=== PATIENT | female | born 1955 | race Caucasian/White ===

== ENCOUNTER 2023-05-24 10:20 | Emergency (ER) | payer MEDICARE, SELFPAY ==
[2023-05-24 10:36] VITALS: BP 143/74; PULSE 67; RESP 18; TEMP 37; O2SAT 100; BMI 22.6
--- NOTE | 2023-05-24 11:28 | ED.ABDPAIN ---
HPI - Abdominal Pain General Chief Complaint: Abdominal Pain Stated Complaint: abd pain Time Seen by Provider: 05/24/23 16:17 Source: patient and family (patient's sister) Mode of arrival: ambulatory Limitations: no limitations History of Present Illness HPI narrative: Patient is a 68 year old assigned female at with a history of IBS presenting to the emergency department today with intermittent constipation and diarrhea. Patient states that she was having constipation and then had diarrhea, so she took immodium. Patient states that she has had recent exposure to someone with norovirus. Patient states that she is having abdominal pain but it is more like discomfort. Patient states that she is still passing gas. Patient denies any dizziness, lightheadedness, nausea, vomiting, fever, chills, blurry vision, double vision, loss of vision, chest pain, difficulty breathing, shortness of breath, back pain, night sweats, pain with urination, increased urinary frequency, increased urinary urgency, blood in her urine or stool, syncope or a near syncopal episode, recent trauma or falls, bladder incontinence, bladder retention, or any other complaints at this time. Associated symptoms: diarrhea and constipation Related Data Allergies Allergy/AdvReac Type Severity Reaction Status Date / Time ciprofloxacin Allergy Chest Pain Verified 05/24/23 10:36 fluconazole Allergy Rash Verified 05/24/23 10:36 Iodinated Contrast Media Allergy Shortness Verified 05/24/23 10:36 [Contrast Dye] of Breath metronidazole Allergy Rash Verified 05/24/23 10:36 omeprazole Allergy Rash Verified 05/24/23 10:36 Penicillins Allergy Rash Verified 05/24/23 10:36 codeine AdvReac Nausea Verified 05/24/23 10:36 avalox Allergy Unknown Uncoded 05/24/23 10:36 Review of Systems Constitutional: Reports no additional constitutional complaints, Denies chills, Denies fever(s) and Denies night sweats Eyes: Reports no additional eye complaints, Denies blurry vision, Denies change in vision, Denies diplopia, Denies eye discharge, Denies loss of vision and Denies eye pain Denies dizziness Cardiovascular: Reports no additional cardiovascular complaints, Denies chest pain, Denies lightheadedness, Denies Loss of Consciousness and Denies dyspnea Respiratory: Reports no additional respiratory complaints and Denies dyspnea Gastrointestinal: Reports no additional gastrointestinal complaints, Reports abdominal pain, Denies melena, Denies hematochezia, Denies change in bowel habits, Denies change in stool character, Reports constipation and Reports diarrhea Genitourinary: Denies hematuria, Denies urinary frequency, Denies dysuria, Denies urinary incontinence, Denies urinary hesitancy and Denies urinary urgency Musculoskeletal: Reports no additional musculoskeletal complaints, Denies numbness and Denies tingling Denies dizziness, Denies loss of vision, Denies numbness and Denies tingling Psychiatric: Reports no additional psychiatric complaints Endocrine: Reports no additional endocrine complaints Hematologic/Lymphatic: Reports no additional hematologic/lymphatic complaints Allergic/Immunologic: Reports no additional allergic/immunologic complaints PMFSH Past Medical History Attestation statement: The following information was validated with the patient. Source: old records reviewed and nursing notes reviewed Onset Date is defined in the Problem List Problems that require an onset date and time if occurred within 24 hrs of arrival to the ED Aortic Dissection and Rupture; Neurologic impairment; Cardiopulmonary Arrest; Endotracheal Intubation; Insertion or Replacement of Mechanical Circulatory Assist Device Social History Social History Advance Directives: No Advance Directives Information Provided: No Physical Exam ED Vital Signs: Vital Signs - 24 hr 05/24/23 10:36 Temperature 98.6 F Pulse Rate 67 Respiratory Rate 18 Blood Pressure 143/74 H Pulse Oximetry 100 Oxygen Delivery Method Room Air BMI result Body Mass Index 22.6 Const General: cooperative, no acute distress, alert and awake Nutritional Appearance: well nourished Orientation/consciousness: patient oriented x3 Limitations: no limitations HENMT Head: Yes normal to inspection and Yes atraumatic Ears: hearing grossly normal bilaterally and external ears normal General nose exam: Normal external nose present, no nasal discharge noted and no epistaxis Face and sinus: Yes normal facial exam, No abrasion and No laceration Mouth: Normal oral and palatal mucosa present, no drooling and no muffled voice Eyes General: appearance normal, both eyes and all related structures Periorbital: periorbital findings normal Eyelids: Yes eyelids normal Conjunctivae: conjunctivae normal Pupils: Equal, round and reactive pupils present EOM: EOMs intact bilaterally Neck Neck: Yes normal visual inspection, Yes full ROM and Yes no lymphadenopathy Chest Chest palpation & inspection: normal inspection of the chest Resp Effort & Inspection: normal respiratory effort and able to speak in complete sentences GI Inspection: Yes normal to inspection Palpation (GI): Soft to palpation, not firm, nontender and no guarding Neuro General: patient oriented x3 and moves all extremities Cranial nerves: Yes Equal, round and reactive pupils present Cognition (Neuro): normal cognition Motor exam (neuro): 5/5 motor strength present throughout Sensory Exam: Normal double simultaneous stimulation for sensation Coordination: [id number] test normal Extrem General: Yes normal to inspection, Yes full ROM and Yes capillary refill normal Psych Appearance: grossly normal Mental Status: mental status grossly normal Affect: normal affect Attitude: cooperative Thought process: Normal thought process present Thought content: Normal thought content present Insight: Good insight present (Psych) Course Course Course Narrative: This is a rapid medical exam. Deferred additional HPI, ROS, PE to primary provider. 68 yo female with history of IBS here with complaints of 2 days of constipation, lower abdominal pain, fever 100F last evening and body aches. Will need labs, UA, viral testing. VSS Medical Decision Making Medical Decision Making [facility] Narrative: Patient is a 68 year old assigned female at with a history of IBS presenting to the emergency department today with abdominal discomfort, diarrhea, and constipation. Patient's physical exam was unremarkable. Patient's blood work was unremarkable. Patient's urine showed no acute process. Patient's KUB x-ray showed mild constipation. I explained my physical exam findings as well as all test results to the patient. I answered all questions asked by the patient. I stressed the importance of the patient taking her medication as prescribed. I stressed the importance of the patient following up with her primary care provider and her GI specialist. I stressed the importance of the patient returning to the emergency department immediately if her symptoms were to worsen or if she were to develop any dizziness, shortness of breath, difficulty breathing, chest pain, blurry vision, loss of vision, nausea, vomiting, abdominal pain, fever, chills, back pain, or any other complaints. Patient verbalized agreement and understanding with this treatment plan and discharge. Differential Diagnosis Differential Diagnoses: The differential diagnosis associated with the presentation includes IBS Constipation Viral illness Gastroenteritis Enteritis Admission/Observation Consideration of admission/observation: Escalation of care including admission/observation considered Patient would have been admitted to the hospital had her work up had any findings where hospital admission was appropriate and her clinical presentation warranted hospital admission. Lab Data [facility] Lab Attestation statement: I reviewed the patient's lab results. My interpretation of these studies and their corresponding values is that they are grossly normal. 05/24/23 10:54 05/24/23 10:54 Labs: Lab Results 05/24/23 05/24/23 Range/Units 10:54 13:37 WBC 8.3 (4.8-10.8) X10*3/uL RBC 4.01 L (4.20-5.50) X10*6/uL Hgb 13.0 (12.0-16.0) g/dl Hct 38.5 (37.0-47.0) % MCV 96.0 (80.0-98.0) fL MCH 32.4 (27.0-33.0) pg MCHC 33.8 (31.0-35.0) g/dl RDW 13.9 (11.0-16.0) % Plt Count 292 (160-400) X10*3/uL MPV 8.9 L (9.4-12.3) fL Immature Gran % (Auto) 0.5 H (0.0-0.4) % Neut % (Auto) 62.2 (45-73) % Lymph % (Auto) 23.8 (20-40) % [place] % (Auto) 12.2 H (2-11) % Eos % (Auto) 0.8 (0-4) % Baso % (Auto) 0.5 (0-2) % Lymph # (Auto) 2.0 (1.2-4.9) X10*3/uL [place] # (Auto) 1.0 (0.1-1.2) X10*3/uL Eos # (Auto) 0.1 (0.0-0.4) X10*3/uL Baso # (Auto) 0.0 (0.0-0.2) X10*3/uL Abs Immat Gran (auto) 0.04 H (0.00-0.03) X10*3/uL Absolute Neuts (auto) 5.1 (2.0-8.3) x10*3/uL Absolute Nucleated RBC 0.000 (0.0-0.012) X10*3/uL Nucleated RBC % (auto) 0.0 (0.0-0.2) /100WBC Sodium 140 (135-145) mmol/L Potassium 4.2 (3.3-5.1) mmol/L Chloride 102 (96-108) mmol/L Carbon Dioxide 30 H (22-29) mmol/L Anion Gap 12 (12-20) BUN 8 L (9-16) mg/dL Creatinine 0.68 (0.5-1.4) mg/dL Estim Creat Clear Calc 61.7 Estimated GFR > 60 Random Glucose 90 (60-115) mg/dL Calcium 9.6 (8.4-10.2) mg/dL Total Bilirubin 1.0 (0.0-1.0) mg/dL AST 26 (5-31) U/L ALT 10 (0-31) U/L Alkaline Phosphatase 96 (39-117) U/L Total Protein 7.4 (6.5-8.0) g/dL Albumin 4.3 (3.5-5.0) g/dL Urine Color Yellow Urine Appearance Clear Urine pH 5.0 (5.0-9.0) Ur Specific Nicholls 1.015 (1.005-1.025) Urine Protein Negative (Neg-Trace) mg/dL Urine Glucose (UA) Negative (Negative) mg/dL Urine Ketones 15 (Negative) mg/dL Urine Blood Trace H (Negative) Urine Nitrite Negative (Negative) Ur Leukocyte Esterase Negative (Negative) Urine RBC 3-5 H (0-2) /HPF Urine WBC 0-5 (0-5) /HPF Ur Squamous Epith Cells 0-2 (0-2) /HPF Urine Bacteria None Seen (None Seen) Hyaline Casts 0-2 (0-2) /LPF Influenza Type A (PCR) NEGATIVE (Negative) Influenza Type B (PCR) NEGATIVE (Negative) RSV RNA Qual (PCR) NEGATIVE (Negative) SARS-CoV-2 RNA (RT-PCR) NEGATIVE (Negative) Independent Interpretation I performed an independent interpretation of an: Plain X-Ray Interpretation: My interpretation is in agreement with the radiologist's impression of this imaging study. EXAMINATION: XR ABDOMEN KUB CLINICAL INDICATION: Constipation COMPARISON: None available. TECHNIQUE: AP view of the abdomen. FINDINGS: There is scattered stool and gas seen throughout the colon without significant distention. There is no organomegaly. No radiopaque calculi seen. There are several phleboliths in the lower pelvis No gross bony abnormality. XR/XR KUB IMPRESSION: Mild constipation. Dictated By: Alirio Carr MD Signed By: Electronically signed by Alirio Carr MD 05/24/23 1119 Radiology Impression Discussion of test interpretation with radiology: I have reviewed the radiologist's reading. Independent Historian Clinical information obtained from an independent historian. History obtained from or confirmed by: Other (patient's sister provided additional history and confirmed the history provided by the patient.) Discharge Plan Discharge Clinical Impression: Abdominal pain, Acute constipation Patient Disposition: Home, Self-Care Instructions: Constipation (DC), Abdominal Pain (ED) Additional Instructions: Follow up with your primary care provider. Return to the emergency department immediately if your symptoms worsen or if you develop any dizziness, shortness of breath, difficulty breathing, chest pain, blurry vision, loss of vision, nausea, vomiting, abdominal pain, fever, chills, back pain, or any other complaints. Referrals: Belen Edwards FNP [Primary Care Provider] - Print Language: Azerbaijani
[2023-05-24 17:15] VITALS: BP 130/70; PULSE 70; RESP 15; TEMP 37.3; O2SAT 96
== END 2023-05-24 17:18 | disposition home or self-care (01) ==
PROVIDERS: Emergency Provider Student in an Organized Health Care Education/Training Program; PCP Nurse Practitioner Family
DX: R10.9 Unspecified abdominal pain (principal); K59.00 Constipation, unspecified; Z20.822 Contact with and (suspected) exposure to COVID-19; Z20.828 Contact with and (suspected) exposure to other viral communicable diseases
CPT/HCPCS: 0241U; 36415; 74018; 80053; 81001; 85025; 99283

== ENCOUNTER 2024-04-14 07:54 | Outpatient (REF) | payer MEDICARE, SELFPAY ==
--- NOTE | ~2024-04-14 | MM_ITS ---
EXAMINATION: BONE DENSITOMETRY CLINICAL INDICATION: Osteoporosis. COMPARISON: This is the patient's baseline examination. TECHNIQUE: Using a [employer] DXA System (software version: 13.1) manufactured by [employer], dual-energy x-ray absorptiometry was performed of the lumbar spine and left hip. The images are of good technical quality. Summary results are attached. FINDINGS: LEFT FEMUR, NECK: BMD 0.669 g/cm2, Z-score -0.8, T-score -2.7, osteoporosis. LEFT FEMUR, TOTAL: BMD 0.819 g/cm2, Z-score 0.2, T-score -1.5, osteopenia. AP SPINE L1-L4: BMD 0.834 g/cm2, Z-score -0.9, T-score -2.9, osteoporosis. IDENTIFIED RISK FACTORS: Osteoporosis, height loss, low calcium intake, parental hip fracture, menopause, bilateral oophorectomy. HISTORY OF FRACTURE: None listed. MEDICATIONS: Bisphosphonates, vitamin D. MM/XR DEXA axial skeleton IMPRESSION: 1. DIAGNOSIS: Osteoporosis based on the lowest T-score value of -2.9 in the lumbar spine applying World Health Organization criteria. 2. 10-YEAR FRACTURE RISK PREDICTION, FRAX: According to the guidelines, FRAX calculation should only be performed on patients in the osteopenia bone density category. Therefore, FRAX was not performed on this patient. 3. Treatment Recommendations: NOF guidelines recommend consideration for treatment in postmenopausal women and men age 50 and older presenting with the following: -A hip or vertebral (clinical or morphometric) fracture. -T-score less than or equal to -2.5 at the femoral neck or spine after appropriate evaluation to exclude secondary causes. -Low bone mass at the hip or spine and a 10-year fracture probability by FRAX of greater than or equal to 3% for hip fracture or greater than or equal to 20% for major osteoporotic fracture based on the [place] adapted WHO algorithm. 4. Other Recommendations: All treatment decisions require clinical judgment and consideration of individual patient factors, including patient preferences, comorbidities, previous drug use, risk factors not captured in the FRAX model (e.g. frailty, falls, vitamin D deficiency, increased bone turnover, interval significant decline in bone density) and possible under or overestimation of fracture risk by FRAX. Additional medical evaluation for secondary cause of low bone mineral density may be appropriate. FUTURE SCAN RECOMMENDATION: People with diagnosed cases of osteoporosis or at high risk for fracture should have regular bone mineral density tests. For patients eligible for Medicare, routine testing is allowed once every 2 years. The testing frequency can be increased to one year for patients who have rapidly progressing disease, those who are receiving or discontinuing medical therapy to restore bone mass, or have additional risk factors. Electronically signed by: Julian Hall MD 04/14/2024 11:52 AM CHANG PITT
== END 2024-04-14 07:55 | disposition home or self-care (01) ==
LOC: HO.MAMMO 07:54
PROVIDERS: PCP Nurse Practitioner Family; Visit Provider Nurse Practitioner Family
DX: M81.0 Age-related osteoporosis without current pathological fracture (principal)
CPT/HCPCS: 77080

== ENCOUNTER → 2024-05-07 13:30 | Outpatient (BNV) | payer MEDICARE, SELFPAY | PROVIDERS: PCP Nurse Practitioner Family; Visit Provider Internal Medicine | DX: Z12.31 Encounter for screening mammogram for malignant neoplasm of breast (principal) | CPT/HCPCS: 77063; 77067 ==

== ENCOUNTER 2024-05-07 13:33 | Outpatient (REF) | payer MEDICARE, SELFPAY ==
--- OUTSIDE RECORDS SUMMARY | 2024-05-07 13:36 | XMS_ITS | Continuity of Care Document ---
Author Organization [place] - [facility], [facility] Address [address] [place] [address] Care Team Providers Care Project Safety Manager Name Role Phone NICHOLAS QUINN Primary Care Provider Assessment Encounter Date Assessment Date Assessment LastModified by Organization Details LastModified Time 03/23/2024 03/23/2024 68 year old female with nasal sores. We discussed that this is most likely nasal vestibulitis. Suggest warm compresses followed by mupirocin ointment 3 times daily. Continue with frequent use of nasal saline and gel. She will follow up on an as needed basis. Patient was seen and evaluated by Dr. Booker. Natalee Mondragon PA-C functioned as a scribe for this visit. [email or web address] Not available 03/23/2024 12:10:30 Plan of Treatment Reminders Order Date Submit Date Provider Last Modified By Organization Details Last Modified Time Details Appointments None recorded. Lab None recorded. Referral None recorded. Procedures None recorded. Surgeries None recorded. Imaging None recorded. Medication Orders mupirocin 2 % topical ointment 2023 024 [facility] #[id number], [address], [place], [address], 12:03:12 Patient TargetsNo targets recorded. Patient InstructionsNo instructions recorded. Reason for Referral None Reported. Problems Name Problem SNOMED Code Status Onset Date Resolution Date Notes Provider Name and Address Organization Details Recorded Time Sensorine ural hearing loss 02471997 Active 2021 Sensorine ural hearing loss, unilatera l, right ear, with unrestric sae hearing on the contralat eral side; Note: Date Diagnosed : 04/23/2022 3:04 PM (H90.41) Sensori neural hearing loss, unilatera l, right ear, with unrestric sae hearing on the contralat eral side; Note: Date Diagnosed : 2 12:52 PM (H90.41) ; Start Date : 2 Not Available [facility] 4 02:59:57 Tinnitus of right ear 11094269471 08 Active 2021 Tinnitus, right ear; Note: Date Diagnosed : 2 12:52 PM (H93.11) Not Available [facility] 4 02:59:56 Dizziness and giddiness 411243144 Active 2021 Dizziness and giddiness ; Note: Date Diagnosed : 2 10:43 AM (R42) Not Available [facility] 4 02:59:56 Nasal vestibuli tis 19323645 Active 2023 NATALEE MONDRAGON PA-C [address] [place] [address],[place] [address], [place], [address] , [facility] 4 12:02:46 Problem Notes None recorded. Procedures Surgical History Date Name Laterality Status Provider Name and Address Organization Details Recorded Time Nasal Endoscopy completed NATALEE MONDRAGON PA-C [address] [place] [address],[place] [address], [place], [address], [facility] 03/23/2024 12:08:31 Imaging Results None recorded. Procedure Notes None recorded. Medical Equipment None Reported. Allergies Allergen ID Allergen Name Allergen Category Reaction Reaction Severity Criticality Documentation Date Start Date Code Code System Note Provider Name and Address Organization Details Recorded Time 38062 metronida zole medicatio n other Not available Not available 09/30/2023 6922 RxNorm React ion: Unkno wn; Not Available [facility] 4 01:06:01 98751 fluconazo le medicatio n other Not available Not available 09/30/2023 4450 RxNorm React ion: Unkno wn; Not Available [facility] 4 01:06:02 11472 omeprazol e medicatio n other Not available Not available 09/30/2023 7646 RxNorm React ion: Unkno wn; Not Available [facility] 4 01:06:03 00022 hydrochlo rothiazid e / irbesarta n medicatio n other Not available Not available 09/30/2023 20252 7 RxNorm React ion: Unkno wn; Not Available [facility] 4 01:06:04 31799 codeine medicatio n other Not available Not available 09/30/2023 2670 RxNorm React ion: Unkno wn; Not Available [facility] 4 01:06:06 75407 Cipro medicatio n other Not available Not available 09/30/2023 37151 3 RxNorm React ion: Unkno wn; Not Available [facility] 4 01:06:08 85397 Medicinal product containin g penicilli n and acting as antibacte rial agent (product) medicatio n other Not available Not available 09/30/2023 21133 05 SNOMED React ion: Unkno wn; Not Available [facility] 4 01:06:10 Medications Name Sig Start Date Stop Date Status Note LastModified by Organization Details LastModified Time prednisone 10 mg tablet by mouth 2021 active Medicatio n ID: [id number] Pr escribed By Name: Isela Ulrich MD Brand Name: prednison e Send Method: E-Prescri bed Subs Allowed: subs OK Specia l Instructi on: Take 6 tabs PO QD X 9 days, then 5 tabs PO QD day 10, 4 tabs day 11, 3 tabs day 12, 2 tabs day 13 and 1 tab day 14 Medica tionGener icName: prednison e Not Available Not Available Not Available citalopram 10 mg tablet TAKE 1 TABLET BY MOUTH EVERY DAY active Not Available Not Available No t Available alendronat e 70 mg tablet TAKE 1 TABLET BY MOUTH EVERY FRIDAY FOR OSTEOPORO SIS TREATMENT active Not Available Not Available No t Available meloxicam 7.5 mg tablet TAKE 1 TABLET BY MOUTH DAILY active Not Available Not Available No t Available famotidine 20 mg tablet TAKE 1 TABLET BY MOUTH 2 TIMES A DAY NEEDED FOR HEARTBURN . active Not Available Not Available No t Available lorazepam 0.5 mg tablet active Medicatio n ID: [id number] Br and Name: lorazepam Send Method: E-Prescri bed Subs Allowed: subs OK Specia l Instructi on: TAKE ONE TABLET BY MOUTH TWICE A DAY NEEDED Me dicationG enericNam e: lorazepam Not Available Not Available Not Available acyclovir 200 mg capsule TAKE 2 CAPSULES BY MOUTH TWICE A DAY active Not Available Not Available No t Available mupirocin 2 % topical ointment APPLY A SMALL AMOUNT TO AFFECTED AREA 3 TIMES A DAY active Not Available Not Available No t Available ondansetro n 4 mg disintegra ting tablet TAKE 1-2 TABLETS BY MOUTH EVERY 8 HOURS NEEDED FOR NAUSEA/VO MITING active Not Available Not Available No t Available cefdinir 300 mg capsule active Medicatio n ID: [id number] Br and Name: cefdinir Send Method: E-Prescri bed Subs Allowed: subs OK Medica tionGener icName: cefdinir Not Available Not Available Not Available Laxative (bisacodyl ) 5 mg tablet,del ayed release 4 TABLET NEEDED ORALLY #4 TABLETS, PT HAS INSTRUCTI ONS 1 DAYS active Not Available Not Available No t Available metoprolol tartrate 25 mg tablet TAKE 1/2 TABLET BY MOUTH TWICE A DAY WITH FOOD active Not Available Not Available No t Available GaviLyte-G 236 gram-22.74 gram-6.74 gram-5.86 gram oral solution 4000 ML ORALLY PT HAS INSTRUCTI ONS 2 DAYS active Not Available Not Available No t Available Eliquis 5 mg tablet TAKE 1 TABLET BY MOUTH TWICE A DAY active Not Available Not Available No t Available Paxlovid 300 mg (150 mg x 2)-100 mg tablets in a dose pack TAKE 3 TABLETS BY MOUTH TOGETHER TWICE A DAY FOR 5 DAYS active Not Available Not Available No t Available Vitals Date Recorded Body height Body mass index (BMI) Body weight Provider Name and Address Organization Details Last Updated DateTime 03/23/2024 154.94 cm 23.2 kg/m2 42476.86 g Panfilo Ledbetter [place] - [facility] 03/23/2024 11:38:27 Social History None recorded. Functional Status None recorded. Mental Status None recorded. Family History Nothing Reported. Medical History No medical history recorded. Gynecological HistoryNo gynecological history recorded. Obstetrics History GPAL:G 0 P 0 0 0 0 Past Encounters Encounter ID Performer Location Encounter Start Date Encounter Closed Date Diagnosis/Indication Diagnosis SNOMED-CT Code Diagnosis ICD10 Code [id number] IKER BIRD MD [facility] on [address] [place] [address] 03/23/2024 11:10:16 03/23/2024 12:05:52 Nasal vestibulitis 14562868 J34.89 Health Concerns Section Related Observation LastModified by Organization Detai ls LastModified Time None Recorded Concern Status LastModified by Organization Details LastModified Time None Recorded Payers Encounter Date Sequence Insurance Name Policy Number Policy Sandoval Covered Member ID Sandoval Member ID Guarantor Name 03/23/2024 2 [facility] [employer] [id number] [facility] [id number] [facility] 03/23/2024 1 [place] [employer] [facility] [id number] [facility] Notes Date Note Type Note Provider Name and Address Organization Details Recorded Time 03/23/2024 text/html 68 year old elvin kaiser presents to the office for evaluation of nasal sores. She reports that she has had sores in her nose for about 5 months. She has been using Mildred nasal gel and saline solution which do seem to be helping. She has used Bacitracin topically over the counter. She uses a humidifier at home. She has antiphospholipid syndrome and has evaluation with rheumatology in May to be evaluated for Sjogren's. She reports that her tongue feels very dry at night and she has had dry eyes for years. IKER BOOKER MD [address] [place] [address], [place], [address], [facility] - [facility] 03/23/2024 12:30:10 OBGyn Episode No OBEpisode recorded.
== END 2024-05-07 13:34 | disposition home or self-care (01) ==
LOC: HO.MAMMO 13:33
PROVIDERS: PCP Nurse Practitioner Family; Visit Provider Nurse Practitioner Family
DX: Z12.31 Encounter for screening mammogram for malignant neoplasm of breast (principal)
CPT/HCPCS: 77063; 77067

== ENCOUNTER → 2024-09-14 08:30 | Outpatient (BNV) | payer MEDICARE, SELFPAY | PROVIDERS: Visit Provider Internal Medicine | DX: N63.21 Unspecified lump in the left breast, upper outer quadrant (principal) | CPT/HCPCS: 76642; 77065; G0279 ==

== ENCOUNTER 2024-09-14 08:33 | Outpatient (REF) | payer MEDICARE, SELFPAY ==
--- NOTE | ~2024-09-14 | US_ITS ---
EXAMINATION: MM DIAGNOSTIC DIGITAL BREAST TOMOSYNTHESIS, LEFT Limited left breast ultrasound. CLINICAL INFORMATION: Left breast palpable lump upper outer quadrant. No discharge. Strong family history of breast cancer including 2 sisters. COMPARISON: Mammography: Priors on PACS. TECHNIQUE: Digital breast tomosynthesis is performed in both the craniocaudal and mediolateral oblique views along with computer-aided detection (CAD). Synthesized 2D images are generated from the tomosynthesis. FINDINGS: There are scattered areas of fibroglandular density (ACR BI-RADS breast composition Category b). Postsurgical changes from removal of implanted cardiac device. BB marker in the upper outer breast at site of palpable lump without underlying abnormality. There are no significant masses, abnormal calcifications, or other abnormalities. Targeted color Doppler ultrasound scanning in the area the patient's palpable lump from 1-5 o'clock in the left breast demonstrates normal fibronodular breast tissue. There is no sonographic abnormality to correlate with the patient's palpable lump. US/US breast LT limited mamm only IMPRESSION: No mammographic or sonographic abnormality to correlate with the patient's palpable lump. Recommend clinical evaluation follow-up. Recommend yearly annual screening. ASSESSMENT: BI-RADS BI-RADS 1 - Negative RECOMMENDATION: 1. Patient should be managed based on the clinical impression. 2. Otherwise, routine annual screening mammography. Results were provided to the patient at time of visit by the technologist. This patient's information was entered into a reminder system with a target due date for their next mammogram. Electronically signed by: Smita Pollock DO 09/14/2024 09:53 AM EDT
--- OUTSIDE RECORDS SUMMARY | 2024-09-14 08:59 | XMS_ITS | Data Portability ---
Author Organization [place] [facility], Allergy Address [address] [facility] [address] [place] [address] Care Team Providers Care Open Claims Representative Name Role Phone NICHOLAS QUINN Primary Care [...] mupirocin 2 % topical ointment 2023 024 [facility][id number], [address] [facility], [place], [address], 12:03:12 Patient TargetsNo targets recorded. Patient InstructionsNo instructions recorded. Reason for Referral None Reported. Problems Name Problem SNOMED Code Status Onset Date Resolution Date Notes Provider Name and Address Organization Details Recorded Time Sensorine ural hearing loss 87852301 Active 2021 Sensorine ural hearing loss, unilatera l, right ear, with unrestric sae hearing on the contralat eral side; Note: Date Diagnosed : 04/23/2022 3:04 PM (H90.41) Sensori neural hearing loss, unilatera l, right ear, with unrestric sae hearing on the contralat eral side; Note: Date Diagnosed : 2 12:52 PM (H90.41) ; Start Date : 2 Not Available [facility] 4 02:59:57 Tinnitus of right ear 48925202009 08 Active 2021 Tinnitus, right ear; Note: Date Diagnosed : 2 12:52 PM (H93.11) Not Available [facility] 4 02:59:56 Dizziness and giddiness 979590511 Active 2021 Dizziness and giddiness ; Note: Date Diagnosed : 2 10:43 AM (R42) Not Available [facility] 4 02:59:56 Nasal vestibuli tis 45587954 Active 2023 NATALEE MONDRAGON PA-C [address] [place] [address],[place] [address], [place], [phone] , [facility] 4 12:02:46 Problem Notes None recorded. Procedures Surgical History Date Name Laterality Status Provider Name and Address Organization Details Recorded Time Nasal Endoscopy completed NATALEE MONDRAGON PA-C [address] [place] [address],[place] [address], [place], [phone], [facility] 03/23/2024 12:08:31 Imaging Results None recorded. Procedure Notes None recorded. Medical Equipment None Reported. Allergies Allergen ID Allergen Name Allergen Category Reaction Reaction Severity Criticality Documentation Date Start Date Code Code System Note Provider Name and Address Organization Details Recorded Time 12763 metronida zole medicatio n other Not available Not available 09/30/2023 6922 RxNorm React ion: Unkno wn; Not Available [facility] 4 01:06:01 86217 fluconazo le medicatio n other Not available Not available 09/30/2023 4450 RxNorm React ion: Unkno wn; Not Available [facility] 4 01:06:02 72184 omeprazol e medicatio n other Not available Not available 09/30/2023 7646 RxNorm React ion: Unkno wn; Not Available [facility] 4 01:06:03 78207 hydrochlo rothiazid e / irbesarta n medicatio n other Not available Not available 09/30/2023 66608 7 RxNorm React ion: Unkno wn; Not Available [facility] 4 01:06:04 21388 codeine medicatio n other Not available Not available 09/30/2023 2670 RxNorm React ion: Unkno wn; Not Available [facility] 4 01:06:06 95120 Cipro medicatio n other Not available Not available 09/30/2023 62880 3 RxNorm React ion: Unkno wn; Not Available [facility] 4 01:06:08 66974 Product containin g penicilli n (product) medicatio n other Not available Not available 09/30/2023 81429 8001 SNOMED React ion: Unkno wn; Not Available [facility] 4 01:06:10 Medications Name Sig Start Date Stop Date Status Note LastModified by Organization Details LastModified Time prednisone 10 mg tablet by mouth 2021 active Medicatio n ID: [id number] Pr escribed By Name: Isela Ulrich MD [...] 0.5 mg tablet active Medicatio n ID: [id number] Br and Name: lorazepam Send Method: E-Prescri [...] 300 mg capsule active Medicatio n ID: [id number] Br and Name: cefdinir Send Method: E-Prescri [...] Updated DateTime 03/23/2024 154.94 cm 23.2 kg/m2 08389.86 g Panfilo Ledbetter [place] [facility] 03/23/2024 11:38:27 Social History None recorded. Functional Status None recorded. Mental Status None recorded. Family History Nothing Reported. Medical History No medical history recorded. Gynecological HistoryNo gynecological history recorded. Obstetrics History GPAL:G 0 P 0 0 0 0 Past Encounters Encounter ID Performer Location Encounter Start Date Encounter Closed Date Diagnosis/Indication Diagnosis SNOMED-CT Code Diagnosis ICD10 Code Diagnosis Note [id number] IKER BIRD MD [facility] on [address] [place] [address] 03/23/2024 11:10:16 03/23/2024 12:05:52 Nasal vestibulitis 41112800 J34.89 Suggest warm compresses followed by mupirocin ointment 3 times daily Health Concerns Section Related Observation LastModified by Organization Detai ls LastModified Time None Recorded Concern Status LastModified by Organization Details LastModified Time None Recorded Advance Directives Directive None Recorded Payers Encounter Date Sequence Insurance Name Policy Number Policy Sandoval Covered Member ID Sandoval Member ID Guarantor Name 03/23/2024 2 [facility]: [employer] [facility] [id number] [facility] [id number] [facility] 03/23/2024 1 MEDICARE B-[place]: [employer] [facility] [id number] [facility] Notes Date Note Type Note Provider Name and Address Organization Details Recorded Time 03/23/2024 text/html 68 year old elvin kaiser presents to the office for evaluation of nasal sores. She reports that she has had sores in her nose for about 5 months. She has been using [place] nasal gel and saline solution which do seem to be helping. She has used Bacitracin topically over the counter. She uses a humidifier at home. She has antiphospholipid syndrome and has evaluation with rheumatology in May to be evaluated for Sjogren's. She reports that her tongue feels very dry at night and she has had dry eyes for years. IKER BOOKER MD [address] [place] [address], [phone], [facility] - [facility] 03/23/2024 12:30:10 OBGyn Episode No OBEpisode recorded.
== END 2024-09-14 08:34 | disposition home or self-care (01) ==
LOC: HO.MAMMO 08:33
PROVIDERS: Visit Provider Family Medicine
DX: N63.23 Unspecified lump in the left breast, lower outer quadrant (principal)
CPT/HCPCS: 76642; 77061; 77065

== ENCOUNTER 2025-01-27 10:01 | Outpatient (REF) | payer MEDICARE, SELFPAY ==
--- NOTE | 2025-01-27 10:04 | PFT_ITS ---
Indication: Abnormal imaging Spirometry FEV1 to FVC 68% pre bronchodilators and 77% post bronchodilators; FEV1 2.07 L; FVC 2.68 L. There is a significant response to bronchodilators noted. Lung Volumes Total lung capacity 90% predicted; residual volume 82% predicted Diffusion Capacity DLCO 64% predicted Comparisons None Interpretation There is a reversible obstructive ventilatory defects suggestive of asthma. The patient did have a significant response to bronchodilators noted. Lung volumes are normal and diffusing capacity is mildly decreased. Should correct for hemoglobin. Clinical correlation warranted. MTDD
[2025-01-27 10:47] VITALS: PULSE 56; O2SAT 96
== END 2025-01-27 10:02 | disposition home or self-care (01) ==
LOC: HO.RESP 10:01
DX: R93.89 Abnormal findings on diagnostic imaging of other specified body structures (principal); Z87.891 Personal history of nicotine dependence
CPT/HCPCS: 94060; 94640; 94727; 94729

== ENCOUNTER → 2025-01-27 10:04 | Outpatient (BNV) | payer MEDICARE, SELFPAY | PROVIDERS: Visit Provider Hospitalist | DX: R91.8 Other nonspecific abnormal finding of lung field (principal) | CPT/HCPCS: 94060; 94727; 94729 ==

== ENCOUNTER 2025-04-01 11:10 | Outpatient (REF) | payer MEDICARE, SELFPAY ==
--- NOTE | ~2025-04-01 | XR_ITS ---
EXAMINATION: XR KNEE, RIGHT CLINICAL INFORMATION: PAIN IN RIGHT KNEE, ? ATROPHY VS BONE CHANGES, oa COMPARISON: None available. TECHNIQUE: Four views of the right knee. FINDINGS: There is mild narrowing of the medial joint space. Intercondylar tubercles are peaked. Minute marginal osteophyte is present along the medial femoral condyle. There is no joint effusion. XR/XR knee RT 4V IMPRESSION: Mild osteoarthritis. Electronically signed by: Luis Knight MD 04/01/2025 11:41 AM CHANG
--- OUTSIDE RECORDS SUMMARY | 2025-04-01 16:59 | XMS_ITS | Encounter Summary ---
Author Organization [facility] Address [facility] [address] [place] [address] Phone Care Team Providers Care Building Service Worker Name Role Phone Belen Edwards BUSINESS COMPUTERS TEACHER Primary Care Provider Rukhsana Melgar BUSINESS COMPUTERS TEACHER Primary Care Provider [phone]- [phone] Encounter Details Date Type Department Care Team (Late st Contact Info) Description 02/09/2024 Transcribe Orders Virtual Department [address] [place] [address] Belen Edwards, LATA [address] [place] [phone] [email or web address] Age-related osteoporosis without current pathological fracture (Primary Dx) Social History Tobacco Use Types Packs/Day Years Used Date Smoking Tobacco: Former Cigarettes Q uit: 1981 Smokeless Tobacco: Never Comments:Smoked for 15 to 20 years and childhood had second hand smoke Alcohol Use Standard Drinks/Week Comments Yes 7 (1 standard drink = 0.6 oz pur e alcohol) Education Answer Date Recorded Are you interested in more education? Not on travis e 09/13/2022 Are you concerned about learning? Not on file 09/13/2022 No 09/13/2022 No 09/13/2022 Digital Access Answer Date Recorded No 10/11/2022 No 10/11/2022 Reliable internet access at home? Not on file 10/11/2022 Device with a working camera? Not on file Intimate Partner Violence Answer Date R ecorded Are you denied basic needs s uch as food, clothing, or medical care? No 01/21/2024 In the past 12 months have y ou been in a relationship with a person who hurts, threatens, or tries to control you? No 01/21/2024 Are you denied basic needs s uch as food, clothing, or medical care? No 01/21/2024 In the past 12 months have y ou been in a relationship with a person who hurts, threatens, or tries to control you? No 01/21/2024 Comments No Sex and Gender Information Value Date Recorded Sex Assigned at Female 04/08/2020 9:22 AM EST Legal Sex Female 9:56 PM EDT Gender Identity Female 04/08/2020 9:22 AM EST Sexual Orientation Straight 04/08/2020 9: 22 AM EST documented as of this encounter Plan of Treatment Not on file documented as of this encounter Visit Diagnoses Diagnosis Age-related osteoporosis without current pathological fracture- Primary documented in this encounter Additional Health Concerns Assessment Noted Time PHQ-2 Depression Total Score: 2 08/25/19 21 8:59 AM EDT documented as of this encounter Care Teams Building Service Worker Relationship Specialty Start Date End Date Belen Edwards NP [address] [place] [phone] [email or web address] PCP - General Nurse Practitioner 02/13/23 10/19/24 Rukhsana Melgar NP [address] [place] [address] PCP - General Nurse Practitioner 10/20/24 documented as of this encounter Additional Source Comments The information contained in this document represents components of the legal health record. It is not the complete legal health record.[facility]
--- OUTSIDE RECORDS SUMMARY | 2025-04-01 16:59 | XMS_ITS | Encounter Summary ---
Author Organization [facility] Address Formerly [facility] [employer] [facility] [address] [place] [address] Phone Care Team Providers Care Dovetail Machine Operator Name Role Phone Sedrick Shea MD Primary Care Provider Belen Edwards MANAGER CULINARY Primary Care Provider Rukhsana Melgar MANAGER CULINARY Primary Care Provider [phone]- [phone] Encounter Details Date Type Department Care Team (Late st Contact Info) Description 02/19/2022 Procedure Pass [facility], [address] [address] Social History Tobacco Use Types Packs/Day Years Used Date Smoking Tobacco: Never Smokeless Tobacco: Never Alcohol Use Standard Drinks/Week Comments Yes 0 (1 standard drink = 0.6 oz pur e alcohol) Comments No Sex and Gender Information Value Date Recorded Sex Assigned at Female 04/08/2020 9:22 AM EST Legal Sex Female 9:56 PM EDT Gender Identity Female 04/08/2020 9:22 AM EST Sexual Orientation Straight 04/08/2020 9: 22 AM EST documented as of this encounter Plan of Treatment Not on file documented as of this encounter Visit Diagnoses Not on filedocumented in this encounter Additional Health Concerns Assessment Noted Time PHQ-2 Depression Total Score: 2 08/25/19 21 8:59 AM EDT documented as of this encounter Care Teams Dovetail Machine Operator Relationship Specialty Start Date End Date Sedrick Shea MD [address] [place] [address] [email or web address] PCP - General Internal Medicine 02/06/21 02/12/23 Belen Edwards NP [address] [place] [phone] [email or web address] PCP - General Nurse Practitioner 02/13/23 10/19/24 Rukhsana Melgar NP [address] [place] [address] PCP - General Nurse Practitioner 10/20/24 documented as of this encounter Additional Source Comments The information contained in this document represents components of the legal health record. It is not the complete legal health record.[facility]
--- OUTSIDE RECORDS SUMMARY | 2025-04-01 16:59 | XMS_ITS | Encounter Summary ---
Author Organization [facility] Address [facility] [employer] [facility] [address] [place] [address] Phone Care Team Providers Care Loom Setter Fourdrinier Name Role Phone Belen Edwards X RAY INSPECTOR Primary Care Provider Rukhsana Melgar X RAY INSPECTOR Primary Care Provider +1- [phone] Encounter Details Date Type Department Care Team (Late st Contact Info) Description 08/21/2023 Procedure Pass [facility] Endoscopy Admitting Dept Virtual Department [address] [place] [address] Social History Tobacco Use Types Packs/Day Years Used Date Smoking Tobacco: Former Cigarettes Q uit: 1982 Smokeless Tobacco: Never Comments:Smoked for 15 to [...] with a working camera? Not on file Comments No Sex and Gender Information Value [...] Time PHQ-2 Depression Total Score: 2 08/25/19 8:59 AM EDT documented as of this encounter Care Teams Loom Setter Fourdrinier Relationship Specialty Start Date End Date Belen Edwards NP [address] [place] [phone] [email or web address] PCP - General Nurse Practitioner 02/13/23 10/19/24 Rukhsana Melgar NP [address] [place] [address] PCP - General Nurse Practitioner 10/20/24 documented as of this encounter Additional Source Comments The information contained in this document represents components of the legal health record. It is not the complete legal health record.[facility]
--- OUTSIDE RECORDS SUMMARY | 2025-04-01 16:59 | XMS_ITS | Encounter Summary ---
Author Organization [facility] Address [facility]ly [facility] [address] [place] [address] Phone Care Team Providers Care Aircraft Time Clerk Name Role Phone Belen Edwards AERONAUTICAL DESIGN ENGINEER Primary Care Provider Rukhsana Melgar AERONAUTICAL DESIGN ENGINEER Primary Care Provider +1- [phone] Encounter Details Date Type Department Care Team (Late st Contact Info) Description 03/16/2024 Procedure Pass [facility] [address] [place] [address] Social History Tobacco Use Types Packs/Day Years [...] documented as of this encounter Care Teams Aircraft Time Clerk Relationship Specialty Start Date End Date Belen Edwards NP [address] [place] [phone] [email or web address] PCP - General Nurse Practitioner 02/13/23 10/19/24 Rukhsana Melgar NP [address] [place] [address] PCP - General Nurse Practitioner 10/20/24 documented as of this encounter Additional Source Comments The information contained in this document represents components of the legal health record. It is not the complete legal health record.[facility]
--- OUTSIDE RECORDS SUMMARY | 2025-04-01 16:59 | XMS_ITS | Encounter Summary ---
Author Organization [facility] Address [address] [place] [address] Phone Care Team Providers Care Quarry Supervisor Dimension Stone Name Role Phone Sedrick Shea MD Primary Care Provider Belen Edwards CHEESE WEIGHER Primary Care Provider Rukhsana Melgar CHEESE WEIGHER Primary Care Provider +1- [phone] Encounter Details Date Type Department Care Team ([facility] Contact Info) Description 10/30/2021 Procedure Pass [facility] Cardio EP Device Monitoring [address] [place] [address] Social History Tobacco Use Types Packs/Day Years Used Date Smoking Tobacco: Never Smokeless Tobacco: Never Alcohol Use Standard Drinks/Week Comments Yes 0 (1 standard drink = 0.6 oz pur e alcohol) Comments Unknown Sex and Gender Information Value Date Recorded [...] documented as of this encounter Care Teams Quarry Supervisor Dimension Stone Relationship Specialty Start Date End Date Sedrick Shea MD [address] [place] [address] [email or web address] PCP - General Internal Medicine 02/06/21 02/12/23 Belen Edwards NP [address] [place] [phone] [email or web address] PCP - General Nurse Practitioner 02/13/23 10/19/24 Rukhsana Melgar NP [address] [place] [address] PCP - General Nurse Practitioner 10/20/24 documented as of this encounter Additional Source Comments The information contained in this document represents components of the legal health record. It is not the complete legal health record.[facility]
--- OUTSIDE RECORDS SUMMARY | 2025-04-01 16:59 | XMS_ITS | Encounter Summary ---
Author Organization [facility] Address [facility] [employer] [facility] [address] [place] [address] Phone Care Team Providers Care Analyzer Sales Name Role Phone Sedrick Shea MD Primary Care Provider Belen Edwards HEALTH SCREENER Primary Care Provider Rukhsana Melgar HEALTH SCREENER Primary Care Provider +1- [phone] Encounter Details Date Type Department Care Team (Late st Contact Info) Description 01/17/2022 Ancillary Orders [facility], [address] [address] Sedrick Shea MD [address] [place] [phone] [email or web address] Right wrist pain Social History Tobacco Use Types Packs/Day Years [...] on file documented as of this encounter Results * XR WRIST 3 OR MORE VIEWS (RIGHT) (01/17/2022 3:14 PM EDT) Anatomical Region Laterality Modality Wrist Right Computed Radiogr aphy 01/18/2022 6:33 PM EDT Impressions 01/18/2022 6:35 PM EDT 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 No osseous lesion is demonstrated. There is scaphotrapeziotrapezoidal osteoarthropathy with sclerosis. Mild radiocarpal joint space narrowing. Mild first carpometacarpal osteoarthropathy. No definite fracture demonstrated. There is no soft tissue swelling. Procedure Note Cinthya Spaulding MD - 01/18/2022 XR WRIST 3 OR MORE VIEWS (RIGHT) COMPARISON: There is no prior study available for comparison FINDINGS: There is normal mineralization and alignment. No osseous lesion isdemonstrated. There is scaphotrapeziotrapezoidal osteoarthropathy withsclerosis. Mild radiocarpal joint space narrowing. Mild firstcarpometacarpal osteoarthropathy. No definite fracture demonstrated. Thereis no soft tissue swelling. 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 Sedrick Shea MD IMG XR UPPER EXTREMITY Final Result documented in this encounter Visit Diagnoses Diagnosis Right wrist pain Pain in joint, forearm Right wrist pain Pain in joint, forearm documented in this encounter Additional Health Concerns Assessment Noted Time PHQ-2 Depression Total Score: 2 08/25/19 21 8:59 AM EDT documented as of this encounter Care Teams Analyzer Sales Relationship Specialty Start Date End Date Sedrick Shea MD [address] [address] [email or web address] PCP - General Internal Medicine 02/06/21 02/12/23 Belen Edwards NP [address] [place] [phone] [email or web address] PCP - General Nurse Practitioner 02/13/23 10/19/24 Rukhsana Melgar NP [address] [place] [address] PCP - General Nurse Practitioner 10/20/24 documented as of this encounter Additional Source Comments The information contained in this document represents components of the legal health record. It is not the complete legal health record.[facility]
--- OUTSIDE RECORDS SUMMARY | 2025-04-01 16:59 | XMS_ITS | Encounter Summary ---
Author Organization [facility] Address [address] [place] [address] Phone Care Team Providers Care Interior Decorator Name Role Phone Sedrick Shea MD Primary Care Provider Belen Edwards BRICK CARRIER Primary Care Provider Rukhsana Melgar BRICK CARRIER Primary Care Provider +1- [phone] Encounter Details Date Type Department Care Team ([facility] Contact Info) Description 12/05/2021 Procedure Pass [facility] Cardio EP Device Monitoring [address] [place] [address] Social History Tobacco Use Types Packs/Day Years [...] documented as of this encounter Care Teams Interior Decorator Relationship Specialty Start Date End Date Sedrick Shea MD [address] [place] [address] [email or web address] PCP - General Internal Medicine 02/06/21 02/12/23 Belen Edwards NP [address] [place] [phone] [email or web address] PCP - General Nurse Practitioner 02/13/23 10/19/24 Rukhsana Melgar NP [address] [place] [phone] PCP - General Nurse Practitioner 10/20/24 documented as of this encounter Additional Source Comments The information contained in this document represents components of the legal health record. It is not the complete legal health record.[facility]"
--- OUTSIDE RECORDS SUMMARY | 2025-04-01 16:59 | XMS_ITS | Encounter Summary ---
Author Organization [facility] Address [address] [place] [address] Phone Care Team Providers Care Engraving Operator Name Role Phone Sedrick Shea MD Primary Care Provider [phone] Belen Edwards NAVY FIGHTER PILOT Primary Care Provider Rukhsana Melgar [employer] P[employer] Primary Care Provider +1- [phone] Encounter Details Date Type Department Care Team ([facility] Contact Info) Description 07/25/2021 Procedure Pass [facility] Cardio EP Device Monitoring [address] [place] [address] Social History Tobacco Use Types Packs/Day Years [...] documented as of this encounter Care Teams Engraving Operator Relationship Specialty Start Date End Date Sedrick Shea MD [address] [place] [address] [email or web address] PCP - General Internal Medicine 02/06/21 02/12/23 Belen Edwards NP [address] [place] [phone] [email or web address] PCP - General Nurse Practitioner 02/13/23 10/19/24 Rukhsana Melgar NP [address] [place] [address] PCP - General Nurse Practitioner 10/20/24 documented as of this encounter Additional Source Comments The information contained in this document represents components of the legal health record. It is not the complete legal health record.[facility]
--- OUTSIDE RECORDS SUMMARY | 2025-04-01 17:00 | XMS_ITS | Data Portability ---
Author Organization [place] [facility], [facility] Address [address] [facility] [address] [place] [address] Care Team Providers Care Nurse Advisor Name Role Phone NICHOLAS QUINN Primary Care [...] mupirocin 2 % topical ointment 2023 024 [facility] #[id number], [address] [facility], [place], [address], 12:03:12 Patient TargetsNo targets recorded. Patient InstructionsNo instructions recorded. Reason for Referral None Reported. Problems Name Problem SNOMED Code Status Onset Date Resolution Date Notes Provider Name and Address Organization Details Recorded Time Tinnitus of right ear 87132282751 08 Active 2021 Tinnitus, right ear; Note: Date Diagnosed : 12:52 PM (H93.11) Not Available [facility] 08/02/202 4 02:59:56 Dizziness and giddiness 989839880 Active 2021 Dizziness and giddiness ; Note: Date Diagnosed : 2 10:43 AM (R42) Not Available [facility] 4 02:59:56 Sensorine ural hearing loss 99506871 Active 2021 Sensorine ural hearing loss, unilatera l, right ear, with unrestric sae hearing on the contralat eral side; Note: Date Diagnosed : 04/23/2022 3:04 PM (H90.41) Sensori neural hearing loss, unilatera l, right ear, with unrestric sae hearing on the contralat eral side; Note: Date Diagnosed : 2 12:52 PM (H90.41) ; Start Date : 2 Not Available [facility] 4 02:59:57 Nasal vestibuli tis 35799681 Active 2023 Natalee romero [place] [facility] 4 12:02:46 Problem Notes None recorded. Procedures Surgical History Date Name Laterality Status Provider Name and Address Organization Details Recorded Time Nasal Endoscopy completed Natalee Mondrgaon [place] [facility] 03/23/2024 12:08:31 Imaging Results None recorded. Procedure Notes None recorded. Medical Equipment None Reported. Allergies Allergen ID Allergen Name Allergen Category Reaction Reaction Severity Criticality Documentation Date Start Date Code Code System Note Provider Name and Address Organization Details Recorded Time 44574 metronida zole medicatio n other Not available Not available 09/30/2023 6922 RxNorm React ion: Unkno wn; Not Available [facility] 4 01:06:01 93080 fluconazo le medicatio n other Not available Not available 09/30/2023 4450 RxNorm React ion: Unkno wn; Not Available [facility] 4 01:06:02 24746 omeprazol e medicatio n other Not available Not available 09/30/2023 7646 RxNorm React ion: Unkno wn; Not Available [facility] 4 01:06:03 20992 hydrochlo rothiazid e / irbesarta n medicatio n other Not available Not available 09/30/2023 89186 7 RxNorm React ion: Unkno wn; Not Available [facility] 4 01:06:04 86970 codeine medicatio n other Not available Not available 09/30/2023 2670 RxNorm React ion: Unkno wn; Not Available [facility] 4 01:06:06 10742 Cipro medicatio n other Not available Not available 09/30/2023 36671 3 RxNorm React ion: Unkno wn; Not Available [facility] 4 01:06:08 43154 Product containin g penicilli n (product) medicatio n other Not available Not available 09/30/2023 20108 8001 SNOMED React ion: Unkno wn; Not Available [facility] 4 01:06:10 Medications Name Sig Start Date Stop Date Status Note LastModified by Organization Details LastModified Time prednisone 10 mg tablet by mouth 2021 active Medicatio n ID: [id number] Pr escribed By Name: Isela Ulrich MD [...] 0.5 mg tablet active Medicatio n ID: [id number] Br and Name: lorazepam Send Method: E-Prescri [...] 300 mg capsule active Medicatio n ID: [id number] Br and Name: cefdinir Send Method: E-Prescri [...] Updated DateTime 03/23/2024 154.94 cm 23.2 kg/m2 39489.86 g Panfilo Ledbetter [place] [facility] 03/23/2024 11:38:27 Social History None recorded. Functional Status None recorded. Mental Status None recorded. Family History Nothing Reported. Medical History No medical history recorded. Gynecological HistoryNo gynecological history recorded. Obstetrics History GPAL:G 0 P 0 0 0 0 Past Encounters Encounter ID Performer Location Encounter Start Date Encounter Closed Date Diagnosis/Indication Diagnosis SNOMED-CT Code Diagnosis ICD10 Code Diagnosis IMO Codes Diagnosis Note [id number] NATALEE MONDRAGON PA-C [facility] [address] [place] [address] 03/23/2024 11:10:16 03/23/2024 12:05:52 Nasal vestibulitis 17972347 J34.89 Suggest warm compresses followed by mupirocin ointment 3 times daily Health Concerns Section Related Observation LastModified by Organization Detai ls LastModified Time None Recorded Concern Status LastModified by Organization Details LastModified Time None Recorded Advance Directives Directive None Recorded Payers Insurance Date Sequence Insurance Name Policy Number Policy Sandoval Covered Member ID Sandoval Member ID Guarantor Name 03/25/2024 2 [facility] [id number] [facility] [id number] [facility] 03/23/2024 1 [place]: [employer] [facility] [id number] [facility] Notes Date Note Type Note Provider Name and Address Organization Details Recorded Time 03/23/2024 text/html ROS as noted in the HPI 68 year old female presents to the office for evaluation of nasal sores. She reports that she has had sores in her nose for about 5 months. She has been using [place] nasal gel and saline solution which do seem to be helping. She has used Bacitracin topically over the counter. She uses a humidifier at home. She has antiphospholipid syndrome and has evaluation with rheumatology in May to be evaluated for Sjogren's. She reports that her tongue feels very dry at night and she has had dry eyes for years. IKER BOOKER MD [address] [place] [address], [place], [phone], [facility] - [facility] 03/23/2024 12:30:10 OBGyn Episode No OBEpisode recorded.
--- OUTSIDE RECORDS SUMMARY | 2025-04-01 17:00 | XMS_ITS | Encounter Summary ---
Author Organization [facility] Address [address] [place] [address] [place] [address] Phone Care Team Providers Care Roving Or Yarn Color Checker Name Role Phone Sedrick Shea MD Primary Care Provider Belen Edwards ELECTRIC BLANKET PACKER Primary Care Provider Rukhsana Melgar ELECTRIC BLANKET PACKER Primary Care Provider [phone]- [phone] Encounter Details Date Type Department Care Team (Latest Contact Info) Description 02/19/2022 Transcribe Orders Virtual Department [address] [place] [address] Sedrick Shea MD [address] [place] [phone] [email or web address] Breast screening (Primary Dx) Social History Tobacco Use Types [...] documented as of this encounter Results * BI MAMMOGRAM SCREENING WITH TOMOSYNTHESIS WITH CAD (BILATERAL) (03/08/2022 8:21 AM EDT) Anatomical Region Laterality Modality Breast Left, Breast Right, Breast Bilateral Bila teral Mammography 03/08/2022 1:31 PM EDT Impressions 03/08/2022 1:34 PM EDT No findings suspicious for malignancy. In the absence of a worrisome palpable abnormality, annual screening mammography is recommended. BI-RADS CATEGORY: 2 - Benign finding. DENSITY: There are scattered fibroglandular densities. Narrative 03/08/2022 1:34 PM EDT COMPARISON: 10/10/2003 through 02/20/2021. Bilateral 3-D tomosynthesis with 2-D reconstructions in the CC and MLO projection. Computer-aided detection system also utilized. No new mass, asymmetry, architectural distortion or suspicious calcifications have become apparent on either side. Stable bilateral axillary nodes and incidentally noted cardiac loop recorder in the left breast. Procedure Note James Lei MD - 03/08/2022 COMPARISON: 10/10/2003 through 02/20/2021. Bilateral 3-D tomosynthesis with 2-D reconstructions in the CC and MLOprojection. Computer-aided detection system also utilized. No new mass, asymmetry, architectural distortion or suspiciouscalcifications have become apparent on either side. Stable bilateral axillary nodes and incidentally noted cardiac looprecorder in the left breast. IMPRESSION: No findings suspicious for malignancy. In the absence of a worrisomepalpable abnormality, annual screening mammography is recommended. BI-RADS CATEGORY: 2 - Benign finding. DENSITY: There are scattered fibroglandular densities. Sedrick Shea MD IMG MG EXAMS Final Result documented in this encounter Visit Diagnoses Diagnosis Breast screening- Primary Breast screening, unspecified Breast screening Breast screening, unspecified documented in this encounter Additional Health Concerns Assessment Noted Time PHQ-2 Depression Total Score: 2 08/25/19 8:59 AM EDT documented as of this encounter Care Teams Roving Or Yarn Color Checker Relationship Specialty Start Date End Date Sedrick Shea MD [address] [place] [address] [email or web address] PCP - General Internal Medicine 02/06/21 02/12/23 Belen Edwards NP [address] [place] [phone] [email or web address] PCP - General Nurse Practitioner 02/13/23 10/19/24 Rukhsana Melgar NP [address] [address] PCP - General Nurse Practitioner 10/20/24 documented as of this encounter Additional Source Comments The information contained in this document represents components of the legal health record. It is not the complete legal health record.[facility]
--- OUTSIDE RECORDS SUMMARY | 2025-04-01 17:00 | XMS_ITS | Encounter Summary ---
Author Organization [facility] Address [address] [place] [address] Phone Care Team Providers Care Stranding Machine Operator Name Role Phone Sedrick Shea MD Primary Care Provider [phone] Belen Edwards CLIENT SOLUTIONS SPECIALIST Primary Care Provider Rukhsana Melgar CLIENT SOLUTIONS SPECIALIST Primary Care Provider [phone]- [phone] Encounter Details Date Type Department Care Team ([facility] Contact Info) Description 01/07/2022 Procedure Pass [facility] Cardio EP Device Monitoring [address] [place] [address] Social History Tobacco Use Types Packs/Day Years [...] documented as of this encounter Care Teams Stranding Machine Operator Relationship Specialty Start Date End Date Sedrick Shea MD [address] [place] [address] [email or web address] PCP - General Internal Medicine 02/06/21 02/12/23 Belen Edwards NP [address] [place] [phone] [email or web address] PCP - General Nurse Practitioner 02/13/23 10/19/24 Rukhsana Melgar NP [address] [place] [phone] PCP - General Nurse Practitioner 10/20/24 documented as of this encounter Additional Source Comments The information contained in this document represents components of the legal health record. It is not the complete legal health record.[facility]
--- OUTSIDE RECORDS SUMMARY | 2025-04-01 17:00 | XMS_ITS | Encounter Summary ---
Author Organization [facility] Address [facility] [address] [place] [address] Phone Care Team Providers Care Anesthesia Resident Name Role Phone Sedrick Shea MD Primary Care Provider Belen Edwards SWITCHBOARD RECEPTIONIST Primary Care Provider Rukhsana Melgar SWITCHBOARD RECEPTIONIST Primary Care Provider [phone]- [phone] Encounter Details Date Type Department Care Team (Late st Contact Info) Description 11/13/2022 Procedure Pass [facility] Cardio EP Device Monitoring [address] [place] [address] Social History Tobacco Use Types Packs/Day Years [...] documented as of this encounter Care Teams Anesthesia Resident Relationship Specialty Start Date End Date Sedrick Shea MD [address] [place] [address] [email or web address] PCP - General Internal Medicine 02/06/21 02/12/23 Belen Edwards NP [address] [place] [phone] [email or web address] PCP - General Nurse Practitioner 02/13/23 10/19/24 Rukhsana Melgar NP [address] [place] [address] PCP - General Nurse Practitioner 10/20/24 documented as of this encounter Additional Source Comments The information contained in this document represents components of the legal health record. It is not the complete legal health record.[facility]
--- OUTSIDE RECORDS SUMMARY | 2025-04-01 17:01 | XMS_ITS | Encounter Summary ---
Author Organization [facility] Address [facility] [address] [place] [address] Phone Care Team Providers Care Transfer Table Operator Helper Name Role Phone Sedrick Shea MD Primary Care Provider Belen Edwards ENTERTAINMENT CENTRE MANAGER Primary Care Provider Rukhsana Melgar ENTERTAINMENT CENTRE MANAGER Primary Care Provider [phone] Encounter Details Date Type Department Care Team (Late st Contact Info) Description 12/13/2022 Procedure Pass [facility] Electrophysiology Lab [address] [place], [place] [id number] Social History Tobacco Use Types Packs/Day Years [...] documented as of this encounter Care Teams Transfer Table Operator Helper Relationship Specialty Start Date End Date Sedrick Shea MD [address] [place] [phone] [email or web address] PCP - General Internal Medicine 02/06/21 02/12/23 Belen Edwards NP [address] [place] [phone] [email or web address] PCP - General Nurse Practitioner 02/13/23 10/19/24 Rukhsana Melgar NP [address] [place] [address] PCP - General Nurse Practitioner 10/20/24 documented as of this encounter Additional Source Comments The information contained in this document represents components of the legal health record. It is not the complete legal health record.[facility]
--- OUTSIDE RECORDS SUMMARY | 2025-04-01 17:01 | XMS_ITS | Encounter Summary ---
Author Organization [facility] Address [facility] [address] [place] [address] Phone Care Team Providers Care Repeater Chief Name Role Phone Sedrick Shea MD Primary Care Provider Belen Edwards CRNA Primary Care Provider Rukhsana Melgar CRNA Primary Care Provider [phone]- [phone] Encounter Details Date Type Department Care Team (Late st Contact Info) Description 10/12/2022 Procedure Pass [facility] Cardio EP Device Monitoring [address] [place] [address] Social History Tobacco Use Types Packs/Day Years [...] documented as of this encounter Care Teams Repeater Chief Relationship Specialty Start Date End Date Sedrick Shea MD [address] [place] [address] [email or web address] PCP - General Internal Medicine 02/06/21 02/12/23 Belen Edwards NP [address] [place] [phone] [email or web address] PCP - General Nurse Practitioner 02/13/23 10/19/24 Rukhsana Melgar NP [address] [place] [address] PCP - General Nurse Practitioner 10/20/24 documented as of this encounter Additional Source Comments The information contained in this document represents components of the legal health record. It is not the complete legal health record.[facility]
--- OUTSIDE RECORDS SUMMARY | 2025-04-01 17:01 | XMS_ITS | Encounter Summary ---
Author Organization [facility] Address [facility] Casualing [facility] [address] [place] [address] Phone Care Team Providers Care Chemical Mixer Name Role Phone Sedrick Shea MD Primary Care Provider Belen Edwards TALENT BUYER Primary Care Provider Rukhsana Melgar TALENT BUYER Primary Care Provider [phone]- [phone] Encounter Details Date Type Department Care Team (Late st Contact Info) Description 10/02/2022 Procedure Pass [place] Admitting Dept - Virtual Department [address] [place] [address] Social History Tobacco Use Types Packs/Day Years [...] on file 09/13/2022 No 09/13/2022 No 09/13/2022 Comments No Sex and Gender Information Value [...] documented as of this encounter Care Teams Chemical Mixer Relationship Specialty Start Date End Date Sedrick Shea MD [address] [place] [address] [email or web address] PCP - General Internal Medicine 02/06/21 02/12/23 Belen Edwards NP [address] [place] [phone] [email or web address] PCP - General Nurse Practitioner 02/13/23 10/19/24 Rukhsana Melgar NP [address] [place] [address] PCP - General Nurse Practitioner 10/20/24 documented as of this encounter Additional Source Comments The information contained in this document represents components of the legal health record. It is not the complete legal health record.[facility]
--- OUTSIDE RECORDS SUMMARY | 2025-04-01 17:01 | XMS_ITS | Encounter Summary ---
Author Organization [facility] Address [facility] Fur and Mask [facility] [address] [place] [address] Phone Care Team Providers Care Certified Lactation Educator Name Role Phone Sedrick Shea MD Primary Care Provider Belen Edwards SPINNING OPERATOR Primary Care Provider Rukhsana Melgar SPINNING OPERATOR Primary Care Provider [phone]- [phone] Encounter Details Date Type Department Care Team (Late st Contact Info) Description 10/01/2022 Prep for Surgery [facility]opedics [facility] Medicine [address] [place] [address] [phone] Luma Gimenez MD [address] [place] [address] Orthopedics & Sports Medicine, [facility] [place], [place] [phone] Social History Tobacco Use Types Packs/Day Years [...] documented as of this encounter Care Teams Certified Lactation Educator Relationship Specialty Start Date End Date Sedrick Shea MD [address] [place] [phone] [email or web address] PCP - General Internal Medicine 02/06/21 02/12/23 Belen Edwards NP [address] [place] [phone] [email or web address] PCP - General Nurse Practitioner 02/13/23 10/19/24 Rukhsana Melgar NP [address] [place] [address] PCP - General Nurse Practitioner 10/20/24 documented as of this encounter Additional Source Comments The information contained in this document represents components of the legal health record. It is not the complete legal health record.[facility]
--- OUTSIDE RECORDS SUMMARY | 2025-04-01 17:01 | XMS_ITS | Encounter Summary ---
Author Organization [facility] Address [facility] [employer] [facility] [address] [place] [address] Phone Care Team Providers Care Farmworker Brooder Farm Name Role Phone Sedrick Shea MD Primary Care Provider Belen Edwards FISHER SEAL Primary Care Provider Rukhsana Melgar FISHER SEAL Primary Care Provider [phone]- [phone] Encounter Details Date Type Department Care Team (Late st Contact Info) Description 09/14/[address] [facility] Cardio EP Device Monitoring [address] [place] [address] Social History Tobacco Use Types Packs/Day Years [...] documented as of this encounter Care Teams Farmworker Brooder Farm Relationship Specialty Start Date End Date Sedrick Shea MD [address] [place] [address] [email or web address] PCP - General Internal Medicine 02/06/21 02/12/23 Belen Edwards NP [address] [place] [phone] [email or web address] PCP - General Nurse Practitioner 02/13/23 10/19/24 Rukhsana Melgar NP [address] [place] [address] PCP - General Nurse Practitioner 10/20/24 documented as of this encounter Additional Source Comments The information contained in this document represents components of the legal health record. It is not the complete legal health record.[facility]
--- OUTSIDE RECORDS SUMMARY | 2025-04-01 17:01 | XMS_ITS | Encounter Summary ---
Author Organization [facility] Address [address] [place] [address] Phone Care Team Providers Care Development Administrator Name Role Phone Sedrick Shea MD Primary Care Provider [phone] Belen Edwards TERRAZZO WORKER Primary Care Provider Rukhsana Melgar TERRAZZO WORKER Primary Care Provider [phone]- [phone] Encounter Details Date Type Department Care Team ([facility] Contact Info) Description 06/26/2021 Procedure Pass [facility] Cardio EP Device Monitoring [address] [place] [address] Social History Tobacco Use Types Packs/Day Years [...] documented as of this encounter Care Teams Development Administrator Relationship Specialty Start Date End Date Sedrick Shea MD [address] [place] [address] [email or web address] PCP - General Internal Medicine 02/06/21 02/12/23 Belen Edwards NP [address] [place] [phone] [email or web address] PCP - General Nurse Practitioner 02/13/23 10/19/24 Rukhsana Melgar NP [address] [place] [address] PCP - General Nurse Practitioner 10/20/24 documented as of this encounter Additional Source Comments The information contained in this document represents components of the legal health record. It is not the complete legal health record.[facility]
--- OUTSIDE RECORDS SUMMARY | 2025-04-01 17:02 | XMS_ITS | Encounter Summary ---
Author Organization [facility] Address [address] [place] [address] Phone Care Team Providers Care Ct Technician Name Role Phone Sedrick Shea MD Primary Care Provider Belen Edwards SENSITIZED PAPER TESTER Primary Care Provider Rukhsana Melgar SENSITIZED PAPER TESTER Primary Care Provider +1- [phone] Encounter Details Date Type Department Care Team ([facility] Contact Info) Description 06/12/2021 Procedure Pass [facility] Cardio EP Device Monitoring [address] [place] [address] Social History Tobacco Use Types Packs/Day Years [...] documented as of this encounter Care Teams Ct Technician Relationship Specialty Start Date End Date Sedrick Shea MD [address] [place] [address] [email or web address] PCP - General Internal Medicine 02/06/21 02/12/23 Belen Edwards NP [address] [place] [phone] [email or web address] PCP - General Nurse Practitioner 02/13/23 10/19/24 Rukhsana Melgar NP [address] [place] [phone] PCP - General Nurse Practitioner 10/20/24 documented as of this encounter Additional Source Comments The information contained in this document represents components of the legal health record. It is not the complete legal health record.[facility]
--- OUTSIDE RECORDS SUMMARY | 2025-04-01 17:02 | XMS_ITS | Encounter Summary ---
Author Organization [facility] Address [facility] [employer] [facility] [address] [place] [address] Phone Care Team Providers Care Lifter Driver Name Role Phone Belen Edwards SUPERVISOR PREP Primary Care Provider Rukhsana Melgar SUPERVISOR PREP Primary Care Provider +1- [phone] Encounter Details Date Type Department Care Team (Late st Contact Info) Description 04/23/2023 Procedure Pass [facility] Admitting Dept Virtual Department [address] [place] [address] Social History Tobacco Use Types Packs/Day Years [...] documented as of this encounter Care Teams Lifter Driver Relationship Specialty Start Date End Date Belen Edwards NP [address] [place] [phone] [email or web address] PCP - General Nurse Practitioner 02/13/23 10/19/24 Rukhsana Melgar NP [address] [place] [address] PCP - General Nurse Practitioner 10/20/24 documented as of this encounter Additional Source Comments The information contained in this document represents components of the legal health record. It is not the complete legal health record.[facility]
--- OUTSIDE RECORDS SUMMARY | 2025-04-01 17:02 | XMS_ITS | Encounter Summary ---
Author Organization [facility] Address [address] [place] [address] Phone Care Team Providers Care Organ Pipe Voicer Name Role Phone Sedrick Shea MD Primary Care Provider Belen Edwards SANITATION INSPECTOR Primary Care Provider Rukhsana Melgar SANITATION INSPECTOR Primary Care Provider +1- [phone] Encounter Details Date Type Department Care Team ([facility] Contact Info) Description 07/12/2021 Procedure Pass [facility] Cardio EP Device Monitoring [address] [place] [address] Social History Tobacco Use Types Packs/Day Years [...] documented as of this encounter Care Teams Organ Pipe Voicer Relationship Specialty Start Date End Date Sedirck Shea MD [address] [place] [address] [email or web address] PCP - General Internal Medicine 02/06/21 02/12/23 Belen Edwards NP [address] [place] [phone] [email or web address] PCP - General Nurse Practitioner 02/13/23 10/19/24 Rukhsana Melgar NP [address] [place] [address] PCP - General Nurse Practitioner 10/20/24 documented as of this encounter Additional Source Comments The information contained in this document represents components of the legal health record. It is not the complete legal health record.[facility]
--- OUTSIDE RECORDS SUMMARY | 2025-04-01 17:02 | XMS_ITS | Encounter Summary ---
Author Organization [facility] Address [address] [place] [address] Phone Care Team Providers Care Music Department Chair Name Role Phone Sedrick Shea MD Primary Care Provider Belen Edwards SALT WASHER Primary Care Provider Rukhsana Melgar SALT WASHER Primary Care Provider [phone]- [phone] Encounter Details Date Type Department Care Team ([facility] Contact Info) Description 07/25/2021 Procedure Pass [facility] Cardio EP Device Monitoring [address] [place] [address] Social History Tobacco Use Types Packs/Day Years [...] documented as of this encounter Care Teams Music Department Chair Relationship Specialty Start Date End Date Sedrick Shea MD [address] [place] [address] [email or web address] PCP - General Internal Medicine 02/06/21 02/12/23 Belen Edwards NP [address] [place] [phone] PCP - General Nurse Practitioner 02/13/23 10/19/24 Rukhsana Melgar NP [address] [place] [address] PCP - General Nurse Practitioner 10/20/24 documented as of this encounter Additional Source Comments The information contained in this document represents components of the legal health record. It is not the complete legal health record.[facility]
--- OUTSIDE RECORDS SUMMARY | 2025-04-01 17:02 | XMS_ITS | Encounter Summary ---
Author Organization [facility] Address [address] [place] [address] Phone Care Team Providers Care Transcription Coordinator Name Role Phone Sedrick Shea MD Primary Care Provider Belen Edwards COLLATOR Primary Care Provider Rukhsana Melgar COLLATOR Primary Care Provider [phone]- [phone] Encounter Details Date Type Department Care Team ([facility] Contact Info) Description 07/24/[address] [facility] Cardio EP Device Monitoring [address] [place] [address] Social History Tobacco Use Types Packs/Day Years [...] documented as of this encounter Care Teams Transcription Coordinator Relationship Specialty Start Date End Date Sedrick Shea MD [address] [place] [address] [email or web address] PCP - General Internal Medicine 02/06/21 02/12/23 Belen Edwards NP [address] [place] [phone] [email or web address] PCP - General Nurse Practitioner 02/13/23 10/19/24 Rukhsana Melgar NP [address] [place] [phone] PCP - General Nurse Practitioner 10/20/24 documented as of this encounter Additional Source Comments The information contained in this document represents components of the legal health record. It is not the complete legal health record.[facility]
--- OUTSIDE RECORDS SUMMARY | 2025-04-01 17:02 | XMS_ITS | Encounter Summary ---
Author Organization [facility] Address [address] [place] [address] Phone Care Team Providers Care Industrial Conveyor Belt Repairer Name Role Phone Sedrick Shea MD Primary Care Provider [phone] Belen Edwards DESPATCHING AND RECEIVING CLERK Primary Care Provider Rukhsana Melgar DESPATCHING AND RECEIVING CLERK Primary Care Provider +1- [phone] Encounter Details Date Type Department Care Team ([facility] Contact Info) Description 07/25/2021 Procedure Pass [facility] Cardio EP Device Monitoring [address] [place] [address] Social History Tobacco Use Types Packs/Day Years [...] documented as of this encounter Care Teams Industrial Conveyor Belt Repairer Relationship Specialty Start Date End Date Sedrick Shea MD [address] [place] [address] [email or web address] PCP - General Internal Medicine 02/06/21 02/12/23 Belen Edwards NP [address] [place] [phone] [email or web address] PCP - General Nurse Practitioner 02/13/23 10/19/24 Rukhsana Melgar NP [address] [place] [address] PCP - General Nurse Practitioner 10/20/24 documented as of this encounter Additional Source Comments The information contained in this document represents components of the legal health record. It is not the complete legal health record.[facility]
--- OUTSIDE RECORDS SUMMARY | 2025-04-01 17:02 | XMS_ITS | Encounter Summary ---
Author Organization [facility] Address [facility] [address] [place] [address] Phone Care Team Providers Care Process Project Engineer Name Role Phone Sedrick Shea MD Primary Care Provider [phone] Belen Edwards BIODIESEL ENGINEERING MANAGER Primary Care Provider Rukhsana Melgar BIODIESEL ENGINEERING MANAGER Primary Care Provider [phone]- [phone] Encounter Details Date Type Department Care Team (Late st Contact Info) Description 12/16/2022 Procedure Pass [facility] Cardio EP Device Monitoring [address] [place] [address] Social History Tobacco Use Types Packs/Day Years [...] documented as of this encounter Care Teams Process Project Engineer Relationship Specialty Start Date End Date Sedrick Shea MD [address] [place] [address] [email or web address] PCP - General Internal Medicine 02/06/21 02/12/23 Belen Edwards NP [address] [place] [phone] [email or web address] PCP - General Nurse Practitioner 02/13/23 10/19/24 Rukhsana Melgar NP [address] [place] [address] PCP - General Nurse Practitioner 10/20/24 documented as of this encounter Additional Source Comments The information contained in this document represents components of the legal health record. It is not the complete legal health record.[facility]
--- OUTSIDE RECORDS SUMMARY | 2025-04-01 17:03 | XMS_ITS | Encounter Summary ---
Author Organization [facility] Address [facility] [address] [place] [address] Phone Care Team Providers Care Stock Digger Name Role Phone Sedrick Shea MD Primary Care Provider Belen Edwards BANDING MACHINE OPERATOR Primary Care Provider Rukhsana Melgar BANDING MACHINE OPERATOR Primary Care Provider [phone] Encounter Details Date Type Department Care Team (Latest Contact Info) Description 05/30/2022 Transcribe Orders Virtual Department [address] [place] [address] Sedrick Shea MD [address] [place] [address] [email or web address] [place] of left side of neck (Primary Dx) Social History Tobacco Use Types [...] documented as of this encounter Results * US Thyroid Gland (06/17/2022 11:56 AM EST) Anatomical Region Laterality Modality Neck, Head, Chest Ultrasound 06/18/2022 1:07 PM EST Impressions 06/18/2022 1:09 PM EST No discrete nodule meeting TI-RADS criteria demonstrated. ACR TI-RADS recommendations TR5 (>7 points) - FNA if >1cm, follow-up if 0.5 - 0.9 cm every year for 5 years TR4 (4-6 points) - FNA if >1.5cm, follow-up if 1 - 1.4 cm in 1, 2, 3 and 5 years TR3 (3 points)- FNA if >2.5cm, follow-up if 1.5 - 2.4 cm in 1, 3 and 5 years TR2 (2 points) & TR1 (0 points) - No FNA and no follow-up indicated These guidelines for management of thyroid nodules are based on the ACR Thyroid Ultrasound Reporting Lexicon, July 2016: https://doi.org/10.1016.j.jacr.2017.01.046 Narrative 06/18/2022 1:09 PM EST US THYROID GLAND TECHNIQUE: Ultrasound of the thyroid. COMPARISON: There is no prior study available for comparison FINDINGS: Gland size: Right lobe: 4.3 x 1.0 x 1.6 cm. Left lobe: 3.1 x 1.0 x 1.2 cm. Isthmus: 0.3 cm. Nodules (greater than or equal to 0.5 cm): No discrete nodule meeting TI-RADS criteria demonstrated. Background echogenicity: Homogeneous. Vascularity: Normal. Cervical lymphadenopathy: None. Parathyroid adenoma: None. Procedure Note Cinthya Spaulding MD - 06/18/2022 US THYROID GLAND TECHNIQUE: Ultrasound of the thyroid. COMPARISON: There is no prior study available for comparison FINDINGS: Gland size: Right lobe: 4.3 x 1.0 x 1.6 cm. Left lobe: 3.1 x 1.0 x 1.2 cm. Isthmus: 0.3 cm. Nodules (greater than or equal to 0.5 cm): No discrete nodule meeting TI-RADS criteria demonstrated. Background echogenicity: Homogeneous. Vascularity: Normal. Cervical lymphadenopathy: None. Parathyroid adenoma: None. IMPRESSION: No discrete nodule meeting TI-RADS criteria demonstrated. ACR TI-RADS recommendations TR5 (>7 points) - FNA if >1cm, follow-up if 0.5 - 0.9 cm every year for 5years TR4 (4-6 points) - FNA if >1.5cm, follow-up if 1 - 1.4 cm in 1, 2, 3 and 5years TR3 (3 points)- FNA if >2.5cm, follow-up if 1.5 - 2.4 cm in 1, 3 and 5years TR2 (2 points) & TR1 (0 points) - No FNA and no follow-up indicated These guidelines for management of thyroid nodules are based on the ACRThyroid Ultrasound Reporting Lexicon, July 2016: https://doi.org/10.1016.j.jacr.2017.01.046 us Sedrick Shea MD IMG US THYROID Final Result * US Soft Tissues of Head and Neck (Non-Thyroid) (06/17/2022 11:55 AM EST) Anatomical Region Laterality Modality Neck, Head Ultrasound 06/18/2022 1:06 PM EST Impressions 06/18/2022 1:07 PM EST A morphologically normal, nonenlarged lymph node corresponds the palpable abnormality. Continued clinical follow-up is recommended to ensure benign behavior. Narrative 06/18/2022 1:07 PM EST US SOFT TISSUES OF HEAD AND NECK (NON-THYROID) TECHNIQUE: Superficial Ultrasound COMPARISON: There is no prior study available for comparison FINDINGS: Superficial scanning was performed of the palpable mass in the left neck as localized by the patient. Corresponding to the palpable abnormality is a morphologically normal, nonenlarged lymph node measuring 5 mm in short axis dimension. A fatty hilum is preserved. Procedure Note Cinthya Spaulding MD - 06/18/2022 US SOFT TISSUES OF HEAD AND NECK (NON-THYROID) TECHNIQUE: Superficial Ultrasound COMPARISON: There is no prior study available for comparison FINDINGS: Superficial scanning was performed of the palpable mass in the left neckas localized by the patient. Corresponding to the palpable abnormality is a morphologically normal,nonenlarged lymph node measuring 5 mm in short axis dimension. A fattyhilum is preserved. IMPRESSION: A morphologically normal, nonenlarged lymph node corresponds the palpableabnormality. Continued clinical follow-up is recommended to ensure benignbehavior. us Sedrick Shea MD IMG US HEAD/NECK NON THYROID Final Result documented in this encounter Visit Diagnoses Diagnosis Mass of left side of neck- Primary Mass of left side of neck Mass of left side of neck documented in this encounter Additional Health Concerns Assessment Noted Time PHQ-2 Depression Total Score: 2 08/25/19 21 8:59 AM EDT documented as of this encounter Care Teams Stock Digger Relationship Specialty Start Date End Date Sedrick Shea MD [address] [place] [address] [email or web address] PCP - General Internal Medicine 02/06/21 02/12/23 Belen Edwards NP [address] [place] [phone] [email or web address] PCP - General Nurse Practitioner 02/13/23 10/19/24 Rukhsana Melgar NP [address] [place] [address] PCP - General Nurse Practitioner 10/20/24 documented as of this encounter Additional Source Comments The information contained in this document represents components of the legal health record. It is not the complete legal health record.[facility]
--- OUTSIDE RECORDS SUMMARY | 2025-04-01 17:03 | XMS_ITS | Encounter Summary ---
Author Organization [facility] Address [address] [place] [address] Phone Care Team Providers Care Driver Manager Name Role Phone Sedrick Shea MD Primary Care Provider Belen Edwards AIRLINE RESERVATION AGENT Primary Care Provider Rukhsana Melgar AIRLINE RESERVATION AGENT Primary Care Provider [phone]- [phone] Encounter Details Date Type Department Care Team (Late st Contact Info) Description 01/24/2023 Procedure Pass [facility] Cardio EP Device Monitoring [address] [place] [address] Social History Tobacco Use Types Packs/Day Years [...] documented as of this encounter Care Teams Driver Manager Relationship Specialty Start Date End Date Sedrick Shea MD [address] [place] [address] [email or web address] PCP - General Internal Medicine 02/06/21 02/12/23 Belen Edwards NP [address] [place] [phone] [email or web address] PCP - General Nurse Practitioner 02/13/23 10/19/24 Rukhsana Melgar NP [address] [place] [address] PCP - General Nurse Practitioner 10/20/24 documented as of this encounter Additional Source Comments The information contained in this document represents components of the legal health record. It is not the complete legal health record.[facility]
--- OUTSIDE RECORDS SUMMARY | 2025-04-01 17:03 | XMS_ITS | Encounter Summary ---
Author Organization [facility] Address [address] [place] [address] Phone Care Team Providers Care Well Logging Captain Name Role Phone Sedrick Shea MD Primary Care Provider Belen Edwards SHOT GRINDER OPERATOR Primary Care Provider Rukhsana Melgar SHOT GRINDER OPERATOR Primary Care Provider +1- [phone] Encounter Details Date Type Department Care Team ([facility] [address] Contact Info) Description 10/23/2021 Procedure Pass [facility] Cardio EP Device Monitoring [address] [place] [address] Social History Tobacco Use Types Packs/Day Years [...] documented as of this encounter Care Teams Well Logging Captain Relationship Specialty Start Date End Date Sedrick Shea MD [address] [place] [address] [email or web address] PCP - General Internal Medicine 02/06/21 02/12/23 Belen Edwards NP [address] [place] [phone] [email or web address] PCP - General Nurse Practitioner 02/13/23 10/19/24 Rukhsana Melgar NP [address] [place] [address] PCP - General Nurse Practitioner 10/20/24 documented as of this encounter Additional Source Comments The information contained in this document represents components of the legal health record. It is not the complete legal health record.[facility]
--- OUTSIDE RECORDS SUMMARY | 2025-04-01 17:04 | XMS_ITS | Encounter Summary ---
Author Organization [facility] Address [facility] [employer] [facility] [address] [place] [address] Phone Care Team Providers Care Shop Estimator Name Role Phone Sedrick Shea MD Primary Care Provider Belen Edwards FITNESS COORDINATOR Primary Care Provider Rukhsana Melgar FITNESS COORDINATOR Primary Care Provider +1- [phone] Encounter Details Date Type Department Care Team (Late st Contact Info) Description 05/03/2022 Procedure Pass [facility], [address] [address] Social History Tobacco Use Types Packs/Day Years [...] documented as of this encounter Care Teams Shop Estimator Relationship Specialty Start Date End Date Sedrick Shea MD [address] [place] [address] [email or web address] PCP - General Internal Medicine 02/06/21 02/12/23 Belen Edwards NP [address] [place] [phone] [email or web address] PCP - General Nurse Practitioner 02/13/23 10/19/24 Rukhsana Melgar NP [address] [place] [address] PCP - General Nurse Practitioner 10/20/24 documented as of this encounter Additional Source Comments The information contained in this document represents components of the legal health record. It is not the complete legal health record.[facility]
--- OUTSIDE RECORDS SUMMARY | 2025-04-01 17:04 | XMS_ITS | Encounter Summary ---
Author Organization [facility] Address [address] [place] [address] [place] [phone] Phone Care Team Providers Care Voltmeter Operator Name Role Phone Rukhsana Melgar NP Primary Care Provider [phone] Reason for Referral * MRI/CAT Scan - Closed Specialty Diagnoses / Procedures Referred By Scott nguyen Referred To Contact Radiology Diagnoses Abnormal findings on diagnostic imaging of other specified body structures Procedures CT Chest Rukhsana Melgar NP [address] [place] [address] Phone: tel: fax: Referral ID Status Reason Start Date Expiration Date Visits Re quested Visits Authorized [id number] Closed 12/21/2024 12/21/2025 1 1 Encounter Details Date Type Department Care Team (Late st Contact Info) Description 12/21/2024 Transcribe Orders Virtual Department [address] [place] [address] Rukhsana Melgar NP [address] [place], [place] [id number] Abnormal findings on diagnostic imaging of other specified body structures (Primary Dx) Social History Tobacco Use Types [...] as food, clothing, or medical care? No 07/01/2024 In the past 12 months have y ou been in a relationship with a person who hurts, threatens, or tries to control you? No 07/01/2024 Are you denied basic needs s uch as food, clothing, or medical care? No 07/01/2024 In the past 12 months have y ou been in a relationship with a person who hurts, threatens, or tries to control you? No 07/01/2024 Comments No Sex and Gender Information Value Date Recorded Sex Assigned at Female 04/08/2020 9:22 AM EST Legal Sex Female 9:56 PM EDT Gender Identity Female 04/08/2020 9:22 AM EST Sexual Orientation Straight 04/08/2020 9: 22 AM EST documented as of this encounter Plan of Treatment Not on file documented as of this encounter Results * CT CHEST WITHOUT CONTRAST (12/30/2024 2:10 PM EDT) MGB IMG RECOMMENDATION COMMENT chest reticular opacities [facility] Anatomical Region Laterality Modality Chest Computed Tomogra phy 01/04/2025 11:1 9 AM EDT Impressions 01/04/2025 11:34 AM EDT 1. Mild amount of reticular opacity in a pattern indeterminate for UIP may be associated with an old infectious or inflammatory process including aspiration, or may represent early interstitial lung disease. 2. Recommend high-resolution CT chest and 6-12 months for reticular opacities. Narrative 01/04/2025 11:[address] CHEST WITHOUT CONTRAST Referring clinician's provided indication for this examination in [facility]: Outside Radiology Order; abnormal imaging TECHNIQUE: Multidetector CT of the chest was performed without intravenous contrast using tailored dose modulation. COMPARISON: CT ABDOMEN WITHOUT CONTRAST FINDINGS: Devices/Tubes/Lines: None. Lungs: The central airways are patent. There is a mild amount of reticular opacity in a subpleural lower lung distribution without associated traction bronchiectasis or honeycombing. There is a mild amount of apical scarring. There are a few scattered pulmonary nodules measuring up to 3 mm, for example in the right upper lobe, 9:169. No air trapping on expiratory images. No change on prone imaging. Pleura: Normal. No pleural effusion or pneumothorax. Mediastinum: Normal. No thyroid nodules. Heart and pericardium are normal. No coronary calcification. Lymph Nodes: Normal. No enlarged supraclavicular, axillary, mediastinal, or hilar lymph nodes. Upper Abdomen: Normal. No abnormality detected in the visualized upper abdomen. Absence of intravenous contrast limits sensitivity for detecting solid organ findings. Chest Wall: Normal. No chest wall mass. Bones: No suspicious lytic or blastic lesions. Procedure Note London Ramirez MD - 01/04/2025 CT CHEST WITHOUT CONTRAST Referring clinician's provided indication for this examination in [facility]:Outside Radiology Order; abnormal imaging TECHNIQUE: Multidetector CT of the chest was performed without intravenouscontrast using tailored dose modulation. COMPARISON: CT ABDOMEN WITHOUT CONTRAST FINDINGS: Devices/Tubes/Lines: None. Lungs: The central airways are patent. There is a mild amount of reticularopacity in a subpleural lower lung distribution without associatedtraction bronchiectasis or honeycombing. There is a mild amount of apicalscarring. There are a few scattered pulmonary nodules measuring up to 3mm, for example in the right upper lobe, 9:169. No air trapping onexpiratory images. No change on prone imaging. Pleura: Normal. No pleural effusion or pneumothorax. Mediastinum: Normal. No thyroid nodules. Heart and pericardium are normal.No coronary calcification. Lymph Nodes: Normal. No enlarged supraclavicular, axillary, mediastinal,or hilar lymph nodes. Upper Abdomen: Normal. No abnormality detected in the visualized upperabdomen. Absence of intravenous contrast limits sensitivity for detectingsolid organ findings. Chest Wall: Normal. No chest wall mass. Bones: No suspicious lytic or blastic lesions. IMPRESSION: 1. Mild amount of reticular opacity in a pattern indeterminate for UIPmay be associated with an old infectious or inflammatory process includingaspiration, or may represent early interstitial lung disease. 2. Recommend high-resolution CT chest and 6-12 months for reticularopacities. Rukhsana Melgar CAR RIDER IMG CT CHEST Final Resu lt documented in this encounter Visit Diagnoses Diagnosis Abnormal findings on diagnostic imaging of other specified body structures- Primary Abnormal findings on diagnostic imaging of other specified body structures documented in this encounter Additional Health Concerns Assessment Noted Time PHQ-2 Depression Total Score: 2 08/25/19 21 8:59 AM EDT documented as of this encounter Care Teams Voltmeter Operator Relationship Specialty Start Date End Date Rukhsana Melgar NP [address] [place] [address] PCP - General Nurse Practitioner 10/20/24 documented as of this encounter Additional Source Comments The information contained in this document represents components of the legal health record. It is not the complete legal health record.[facility]
--- OUTSIDE RECORDS SUMMARY | 2025-04-01 17:04 | XMS_ITS | Encounter Summary ---
Author Organization [facility] Address [address] [place] [phone] Phone Care Team Providers Care Degree Clerk Name Role Phone Sedrick Shea MD Primary Care Provider [phone] Belen Edwards PAYROLL COORDINATOR Primary Care Provider Rukhsana Melgar PAYROLL COORDINATOR Primary Care Provider [phone]- [phone] Encounter Details Date Type Department Care Team ([facility] Contact Info) Description 07/25/2021 Procedure Pass [facility] Cardio EP Device Monitoring [address] [place] [address] Social History Tobacco Use Types Packs/Day Years [...] documented as of this encounter Care Teams Degree Clerk Relationship Specialty Start Date End Date Sedrick Shea MD [address] [place] [phone] [email or web address] PCP - General Internal Medicine 02/06/21 02/12/23 Belen Edwards NP [address] [place] [phone] [email or web address] PCP - General Nurse Practitioner 02/13/23 10/19/24 Rukhsana Melgar NP [address] [place] [phone] PCP - General Nurse Practitioner 10/20/24 documented as of this encounter Additional Source Comments The information contained in this document represents components of the legal health record. It is not the complete legal health record.[facility]
--- OUTSIDE RECORDS SUMMARY | 2025-04-01 17:04 | XMS_ITS | Encounter Summary ---
Author Organization [facility] Address [address] [place] [phone] Phone Care Team Providers Care Architectural Wood Model Maker Name Role Phone Rukhsana Melagr TECHNICAL BUSINESS SYSTEMS ANALYST Primary Care Provider [phone] Encounter Details Date Type Department Care Team (Late st Contact Info) Description 12/21/2024 Procedure Pass [facility], Ct Scan - [facility] [address] [place] [address] Social History Tobacco Use Types Packs/Day Years [...] documented as of this encounter Care Teams Architectural Wood Model Maker Relationship Specialty Start Date End Date Rukhsana Melgar NP [address] [place] [phone] PCP - General Nurse Practitioner 10/20/24 documented as of this encounter Additional Source Comments The information contained in this document represents components of the legal health record. It is not the complete legal health record.[facility]
--- OUTSIDE RECORDS SUMMARY | 2025-04-01 17:04 | XMS_ITS | Clinical Summary ---
Author Organization [facility] Address [address] [place] [address] [place] [phone] Phone Care Team Providers Care Meals On Wheels Driver Name Role Phone Rukhsana Melgar NP Primary Care Provider [phone]- [phone] Allergies Active Allergy Reactions Criticality Noted Date Comments Moxifloxacin 04/08/2020 Ciprofloxacin 04/08/2020 Codeine 04/08/2020 Fluconazole 04/08/2020 Iodinated Contrast Media 04/08/2020 Chest tightness Metronidazole 04/08/2020 Omeprazole 04/08/2020 Oxycodone Dizziness 07/07/2024 Penicillins 04/08/2020 Medications acyclovir (ZOVIRAX) 200 MG capsule Take by mouth 2 (two) times a day. Active alendronate (FOSAMAX) 70 MG tablet Take 70 mg by mouth every 7 days. Take in the morning with a full glass of water, on an empty stomach, and do not take anything else by mouth or lie down for the next 30 min. Active cholecalciferol (VITAMIN D3) 2,000 unit capsule Take 2,000 Units by mouth daily. Active citalopram (CELEXA) 10 MG tablet Take 10 mg by mouth nightly at bedtime. Active cycloSPORINE (RESTASIS) 0.05 % suspension Place 1 drop into each eye 2 (two) times a day. Active folic acid (FOLVITE) 400 MCG tablet Take 400 mcg by mouth daily. Active apixaban (ELIQUIS) 5 mg tablet Take 1 tablet (5 mg total) by mouth 2 (two) times a day. 180 tablet 1 08/03/19 23 Active metoprolol tartrate (LOPRESSOR) 25 MG tablet Take 0.5 tablets (12.5 mg total) by mouth 2 (two) times a day. 60 tablet 1 08/03/19 23 Active albuterol 90 mcg/actuation inhaler Inhale 1 puff into the lungs as needed. 09/14/19 23 Active ondansetron (ZOFRAN-ODT) 4 MG disintegrating tablet (To-Go) Take 1-2 tablet(s) by mouth every 8 hours as needed for nausea/vomiting 6 tablet 01/21/20 24 Active Additional Information Patient not taking.Reported on 12/27/2024 famotidine (PEPCID) 20 MG tablet Take 1 tablet (20 mg total) by mouth 2 (two) times a day as needed for heartburn. 20 tablet 01/21/20 24 Active Additional Information Patient not taking.Reported on 12/27/2024 Medication-Free Text Homeopathic supplement - restful legs for RLS Active loperamide (IMODIUM A-D) 2 mg tablet Take 2 mg by mouth 2 (two) times a day as needed for diarrhea (irritable bowel syndrome). Active LORazepam (ATIVAN) 0.5 MG tablet Take 0.5 mg by mouth once as needed for anxiety (anxiety r/t air travel). Active meloxicam (MOBIC) 7.5 MG tablet Take 1 tablet (7.5 mg total) by mouth daily for 5 days. 5 tablet 07/02/19 25 Active Active Problems Problem Noted Date Diagnosed Date Atrial fibrillation 10/03/2020 Right carpal tunnel syndrome Encounters Date Type Department Care Team Description 12/30/2024 1:56 PM EDT - 12/30/2024 11:59 PM EDT Hospital Encounter [facility], Ct Scan - [address] [address] Rukhsana Melgar NP Discharge Disposition: Home or Self Care 12/21/2024 Procedure Pass [facility], Ct Scan - [address] [address] from Last 3 Months Family History Medical History Relation Comments Breast cancer Sister 1 Breast cancer Sister 2 Relation Status Comments Sister 1 Sister 2 Alive Social History Tobacco Use Types Packs/Day Years [...] Orientation Straight 04/08/2020 9: 22 AM EST Last Filed Vital Signs Vital Sign Reading Time Taken Comments Blood Pressure 123/79 12/27/2024 8:45 AM EDT Pulse 61 12/27/2024 8:45 AM EDT Temperature 36.7 C (98 F) 12/27/2024 8:45 AM EDT Respiratory Rate 16 12/27/2024 8:45 AM EDT Oxygen Saturation 99% 12/27/2024 8:45 AM EDT Inhaled Oxygen Concentration - - Weight 54.4 kg (120 lb) 12/27/2024 8:45 AM EDT Height 154.9 cm (5' 1 ) 12/27/2024 8:45 AM EDT Body Mass Index 22.67 12/27/2024 8:45 AM EDT Plan of Treatment Health Maintenance Due Date Last Done Comments Adult Td,Tdap Booster 1955 PNEUMOCOCCAL VACCINES (50+ years) (1 of 2 - PCV) 1973 COLOGUARD 1999 FIT TEST 1999 FOBT 1999 SIGMOIDOSCOPY 1999 VIRTUAL COLONOSCOPY 1999 ZOSTER VACCINES (2 of 2) 05/30/2019 04/04/2019 DEPRESSION SCREENING 08/24/2021 08/24/2020 MAMMOGRAM 03/08/2024 03/08/2022, 09/2020, 01/27/2020, Additional history exists INFLUENZA VACCINE (#1) 2024 , 03/01/2023, 02/14/2022, Additional history exists COVID-19 VACCINE ( season) 2025 05/20/2024, 02/07/2023, 02/14/2022, Additional history exists CREATININE LEVEL 07/01/2025 07/01/2024, , 04/22/2023, Additional history exists SMOKING Hx and SMOKELESS TOBACCO SCREENING 12/27/2025 12/27/2024 LIPID PANEL 04/13/2029 04/13/2024, 07/18, 03/13/2021 COLONOSCOPY 08/20/2033 08/21/2023 COLORECTAL CANCER SCREENING 08/20/2033 OSTEOPOROSIS SCREENING INITIAL (ONE-TIME) Completed 02/28/2021 RSV VACCINE Completed 03/01/2023 HEPATITIS C SCREENING Completed 08/06/2023 HEPATITIS A VACCINES Aged Out No long er eligible based on patient's age to complete this topic HIB VACCINES Aged Out No longer eligi ble based on patient's age to complete this topic IPV VACCINES Aged Out No longer eligi ble based on patient's age to complete this topic MENINGOCOCCAL VACCINES (ACWY) Aged Out No longer eligible based on patient's age to complete this topic MENINGOCOCCAL VACCINES (B) Aged Out N o longer eligible based on patient's age to complete this topic Medical Devices Implanted Type Area Machine Learning Intern Device Identifier Shelf Expiration Date Model / Serial / Lot Medtronic In Lnq11 Reveal Linq [id number] Implanted: (Quantity not on file) Implantable Monitor [employer] LNQ11 REVEAL LINQ / [id number] / Procedures Procedure Name Priority Date/Time Associated Diagnosis Comments CT CHEST WITHOUT CONTRAST Routine 12/30/2024 2:10 PM EDT Abnormal findings on diagnostic imaging of other specified body structures BASIC METABOLIC PANEL (BMP) STAT 07/01/2024 10:14 PM EST LIPID PANEL Routine 04/13/2024 8:57 AM EST Pure hypercholesterolemia ENDOSCOPY, COLON 08/21/2023 7:16 AM EDT HEPATITIS C ANTIBODY, QUALITATIVE Routine 08/06/2023 9:33 AM EDT Need for hepatitis C screening test BI MAMMOGRAM SCREENING WITH TOMOSYNTHESIS WITH CAD (BILATERAL) Routine 03/08/2022 8:21 AM EDT Breast screening BD DXA AXIAL (SPINE) WITH HIP Routine 02/28/2021 10:01 AM EDT Osteoporosis, unspecified osteoporosis type, unspecified pathological fracture presence from Last 3 Months or Most Recently Relevant to Health Maintenance Results * CT CHEST WITHOUT CONTRAST (12/30/2024 2:10 PM EDT) MGB IMG RECOMMENDATION COMMENT chest reticular opacities [facility] Anatomical Region Laterality Modality Chest Computed [...] clinician's provided indication for this examination in Epic: Outside Radiology Order; abnormal imaging TECHNIQUE: Multidetector [...] clinician's provided indication for this examination in [facility]:Outside Radiology Order; abnormal imaging TECHNIQUE: Multidetector [...] CT chest and 6-12 months for reticularopacities. us Rukhsana Melgar CENTER LEAD CONSULTANT IMG CT CHEST Final Resu lt * (ABNORMAL) Basic metabolic panel (07/01/2024 10:14 PM EST) SODIUM 136 133 - 146 mmol/L [facility] CHLORIDE 98 96 - 108 mmol/L [facility] POTASSIUM 4.5 3.3 - 5.1 mmol/L [facility] CO2 30 21 - 35 mmol/L [facility] BUN 17 6 - 19 mg/dL [facility] CREATININE 0.70 0.5 - 1.5 mg/dL [facility] GLUCOSE 106(H) 70 - 99 mg/dL [facility] CALCIUM 9.4 8.4 - 10.3 mg/dL [facility] EGFR 93 >59 mL/min/1.7 3m2 [facility] Comment:Estimated glomerular filtration rate calculated using the CKD-EPI refit equation. ANION GAP 13 10 - 20 mmol/L [facility] Blood 07/01/2024 10:1 4 PM EST 07/01/2024 10:19 PM EST us Savanna Cheema MD LAB BLOOD BKR ORDERABLES Final Result [facility] [address] [place] [address] * (ABNORMAL) Lipid panel (04/13/2024 8:57 AM EST) HDL 89 mg/dL [facility] Comment: Interpretation <40 mg/dL: Low HDL cholesterol (major risk factor for CHD) Greater than or equal to 60 mg/dL: High HDL cholesterol ( negative risk factor for CHD) HDL - cholesterol is affected by a number of factors, e.g. smoking, excerise, hormones, sex and age. CHOLESTEROL 170 0 - 240 mg/dL [facility] TRIGLYCERIDES 84 30 - 160 mg/dL [facility] LDL 64 50 - 129 mg/dL [facility] Comment: LDL levels in terms of risk for coronary heart disease: <100 mg/dL: Optimal 100-129 mg/dL: Near or above optimal 130-159 mg/dL: Borderline high 160-189 mg/dL: High >190 mg/dL: Very High CARDIAC RISK RATIO 1.9(L) 3.3 - 4.4 [facility] Blood 04/13/2024 8:57 AM EST 04/13/2024 8:59 AM EST us Fredy Torres MD LAB BLOOD BKR ORDERABLES Final Result [address] [address] * ENDOSCOPY, COLON (08/21/2023 7:16 AM EDT) Narrative Transcriptions Amador Bustamante MD - 08/21/2023 7:16 AM EDT [facility] Patient Name: Savannah Carreon MD:: AMADOR BUSTAMANTE MD, Procedure Date: 08/21/2023 7:16 AM Date of : 1955 Age: 68 Admit Type: Outpatient Gender: Female Room: [place] [address] Referring MD: Belen Edwards Exam Type: Colonoscopy Indications: Screening for colorectal malignant neoplasm, Last colonoscopy: date unknown (unable to locate last colonoscopy report), Last colonoscopy 10 years ago, Incidental diarrhea noted Medications: Propofol per Anesthesia Procedure: Informed consent was obtained from the patientafter discussion of the indications, limitations, alternatives, benefits, and risks of the procedure. Risks specifically discussed include but are not limited to medication reactions, missed lesions, bleeding, perforation, or the need for emergent surgery. Throughout the procedure, the patient's blood pressure, pulse, end-tidal CO2, and oxygensaturations were monitored continuously. The Olympus adult variable colonoscope [id number] #7 was introduced through the anus and advanced to the cecum, identified by appendiceal orifice andileocecal valve. The ileocecal valve, appendiceal orifice,and rectum were photographed. The colonoscopy wassomewhat difficult due to a tortuous colon. Successful completion of the procedure was aided by applying abdominal pressure. The patient tolerated the procedure well. The quality of the bowelpreparation was good. The bowel preparation used was GoLYTELYvia split dose instruction. Complications: No immediate complications. Estimated blood loss:None. Findings: The perianal and digital rectal examinations were normal. Pertinent negatives include no palpablerectal lesions. Internal hemorrhoids were found duringretroflexion. The hemorrhoids were small. A few medium-mouthed diverticula were found in the sigmoid colon. There are tight, fixed turns in the sigmoidcolon. The exam was otherwise without abnormality. Attempt was made to retroflex the scope in the ascending colon for further visualization but thiswas not easily accomplished and the effort aborted. A second careful survey of the ascending colon wasmade on forward viewing, instead. Biopsies for histology were taken with a coldforceps from the ascending colon, transverse colon and descending colon for evaluation of microscopiccolitis. Impression: - Internal hemorrhoids. - Diverticulosis in the sigmoid colon. - The examination was otherwise normal. - Biopsies were taken with a cold forceps from the ascending colon, transverse colon and descendingcolon for evaluation of microscopic colitis. Recommendation: - Await pathology results. - Repeat colonoscopy in 10 years for screening purposes. - Pediatric colonoscope would be helpful for future exams. AMADOR BUSTAMANTE MD 08/21/2023 8:02:39 AM This report has been signed electronically. Number of Addenda: 0 Note Initiated On: 08/21/2023 7:16 AM Procedure Code(s): --- Professional --- 62166, Colonoscopy, flexible; with biopsy, single or multiple --- Technical --- 92468, Colonoscopy, flexible; with biopsy, single or multiple Diagnosis Code(s): --- Professional --- Z12.11, Encounter for screening for malignantneoplasm of colon K64.8, Other hemorrhoids K57.30, Diverticulosis of large intestine without perforation or abscess without bleeding --- Technical --- Z12.11, Encounter for screening for malignantneoplasm of colon K64.8, Other hemorrhoids K57.30, Diverticulosis of large intestine without perforation or abscess without bleeding CPT copyright 2021 [employer]. All rights reserved. The codes documented in this report are preliminary and upon receptionist doctor's office reviewmay be revised to meet current compliance requirements. Procedure Date: 08/21/2023 7:16:[address] [place] [id number] Belen Edwards NP GI PROCEDURE ORDERABLE S Final Result * Hepatitis C antibody, qualitative (08/06/2023 9:33 AM EDT) HCV NON-REACTIV E NON-REACTI VE [facility] Blood 08/06/2023 9:33 AM EDT 08/06/2023 9:34 AM EDT Belen Edwards NP LAB BLOOD BKR ORDERABL ES Final Result [address] [address] * BI MAMMOGRAM SCREENING WITH TOMOSYNTHESIS WITH [...] Shea MD IMG MG EXAMS Final Result * BD DXA AXIAL (SPINE) WITH HIP (02/28/2021 10:01 AM EDT) Anatomical Region Laterality Modality Bone Density Bone Density 02/28/2021 10:0 6 AM EDT Impressions 02/28/2021 10:10 AM EDT 1.Stable lumbar spine osteoporosis. 2.Bilateral total hip osteopenia. 3.Bilateral femoral neck osteoporosis. (Previously exam reported bilateral hip osteopenia however it did not specify whether this refers to the total hip or femoral neck bone density) Narrative 02/28/2021 10:10 AM EDT COMPARISON: 12/28/2007 report. Images are not available. BONE DENSITY FINDINGS: History: This is a 65-year-old postmenopausal female. Evaluation of the lumbar spine and hips was performed and felt to be technically adequate. L1-L4 vertebral bodies total bone mineral density was calculated at 0.698 gm/cm2 with a T-score of -3.2 falling within the WHO classification of osteoporosis. Z-score of -1.3.High fracture risk. Right femoral neck bone mineral density was calculated at 0.523 gm/cm2 with a T- score of -2.9 falling within the WHO classification of osteoporosis. Z-score of -1.3. Total Right hip bone mineral density was calculated at 0.682 gm/cm2 with a T- score of -2.1 falling within the WHO classification of osteopenia. Z-score of -0.8. Left femoral neck bone mineral density was calculated at 0.541 gm/cm2 with a T- score of -2.8 falling within the WHO classification of osteoporosis. Z-score of -1.2. Total Left hip bone mineral density was calculated at 0.747 gm/cm2 with a T- score of -1.6 falling within the WHO classification of osteopenia. Z-score of -0.3. 6.5% decrease in bone density which is statistically significant. Procedure Note Viktor Rico MD - 02/28/2021 COMPARISON: 12/28/2007 report. Images are not available. BONE DENSITY FINDINGS: History: This is a 65-year-old postmenopausal female. Evaluation of the lumbar spine and hips was performed and felt to betechnically adequate. L1-L4 vertebral bodies total bone mineral density was calculated at 0.698gm/cm2 with a T-score of -3.2 falling within the WHO classification ofosteoporosis. Z-score of -1.3.High fracture risk. Right femoral neck bone mineral density was calculated at 0.523 gm/vf4ertq a T- score of -2.9 falling within the WHO classification ofosteoporosis. Z-score of -1.3. Total Right hip bone mineral density was calculated at 0.682 gm/cm2 with aT- score of -2.1 falling within the WHO classification of osteopenia.Z-score of -0.8. Left femoral neck bone mineral density was calculated at 0.541 gm/cm2 witha T- score of -2.8 falling within the WHO classification of osteoporosis.Z-score of -1.2. Total Left hip bone mineral density was calculated at 0.747 gm/cm2 with aT-score of -1.6 falling within the WHO classification of osteopenia.Z-score of -0.3. 6.5% decrease in bone density which is statisticallysignificant. IMPRESSION: 1.Stable lumbar spine osteoporosis. 2.Bilateral total hip osteopenia. 3.Bilateral femoral neck osteoporosis. (Previously exam reported bilateral hip osteopenia however it did notspecify whether this refers to the total hip or femoral neck bonedensity) Sedrick Shea MD IMG BD BONE DENSITY DEXA Fin al Result from Last 3 Months or Most Recently Relevant to Health Maintenance Insurance MEDICARE PART A & B [employer] MEDEX SUPPLEMENT MEDICARE PART A & B [facility] MEDEX SUPPLEMENT MEDICARE PART A & B [employer] SUPPLEMENT ([place]) [address] [address] MEDICARE PART A & B [employer] SUPPLEMENT MEDICARE PART A & B [employer] SUPPLEMENT MEDICARE PART A & B [employer] SUPPLEMENT MEDICARE PART A & B [facility] MEDEX SUPPLEMENT MEDICARE PART A & B [employer] MEDEX SUPPLEMENT MEDICARE PART A & B [employer] SUPPLEMENT MEDICARE PART A & B [employer] SUPPLEMENT Advance Directives For more information, please contact: [phone] (9AM - 5PM [facility], Friday-Friday) * Full Code (Latest Code Status on File) Date Activated Date Inactivated Comments 12/13/2022 10:47 AM Question Answer Comments Code Status Confirmed With: Patient * Full Code Date Activated Date Inactivated Comments 10/04/2020 8:28 AM 12/13/2022 10:47 AM Question Answer Comments Code Status Confirmed With: Patient * Full Code Date Activated Date Inactivated Comments 10/04/2020 8:28 AM 10/04/2020 8:28 AM Question Answer Comments Code Status Confirmed With: Patient * Full Code Date Activated Date Inactivated Comments 10/04/2020 8:26 AM 10/04/2020 8:28 AM Question Answer Comments Code Status Confirmed With: Patient Care Teams Meals On Wheels Driver Relationship Specialty Start Date End Date Rukhsana Melgar NP [address] [place] [address] PCP - General Nurse Practitioner 10/20/24 Additional Source Comments The information contained in this document represents components of the legal health record. It is not the complete legal health record.[facility]
--- OUTSIDE RECORDS SUMMARY | 2025-04-01 17:04 | XMS_ITS | Encounter Summary ---
Author Organization [facility] Address [facility] [address] [place] [address] Phone Care Team Providers Care Fork Lift Mechanic Name Role Phone Sedrick Shea MD Primary Care Provider Belen Edwards BRANCH ASSOCIATE TELLER Primary Care Provider Rukhsana Meglar BRANCH ASSOCIATE TELLER Primary Care Provider [phone]- [phone] Encounter Details Date Type Department Care Team (Late st Contact Info) Description 05/27/2022 Procedure Pass [facility] Cardio Device Monitoring - [address] [address] Social History Tobacco Use Types Packs/Day Years [...] documented as of this encounter Care Teams Fork Lift Mechanic Relationship Specialty Start Date End Date Sedrick Shea MD [address] [place] [address] [email or web address] PCP - General Internal Medicine 02/06/21 02/12/23 Belen Edwards NP [address] [place] [phone] [email or web address] PCP - General Nurse Practitioner 02/13/23 10/19/24 Rukhsana Melgar NP [address] [place] [phone] PCP - General Nurse Practitioner 10/20/24 documented as of this encounter Additional Source Comments The information contained in this document represents components of the legal health record. It is not the complete legal health record.[facility]
--- OUTSIDE RECORDS SUMMARY | 2025-04-01 17:04 | XMS_ITS | Encounter Summary ---
Author Organization [facility] Address [address] [place] [address] Phone Care Team Providers Care Earth Science Faculty Member Name Role Phone Sedrick Shea MD Primary Care Provider [phone] Belen Edwards DOG CONTROL OFFICER Primary Care Provider Rukhsana Melgar DOG CONTROL OFFICER Primary Care Provider +1- [phone] Encounter Details Date Type Department Care Team ([facility] Contact Info) Description 02/07/2022 Procedure Pass [facility] Cardio EP Device Monitoring [address] [place] [address] Social History Tobacco Use Types Packs/Day Years [...] documented as of this encounter Care Teams Earth Science Faculty Member Relationship Specialty Start Date End Date Sedrick Shea MD [address] [place] [address] [email or web address] PCP - General Internal Medicine 02/06/21 02/12/23 Belen Edwards NP [address] [place] [phone] [email or web address] PCP - General Nurse Practitioner 02/13/23 10/19/24 Rukhsana Melgar NP [address] [place] [phone] PCP - General Nurse Practitioner 10/20/24 documented as of this encounter Additional Source Comments The information contained in this document represents components of the legal health record. It is not the complete legal health record.[facility]
--- OUTSIDE RECORDS SUMMARY | 2025-04-01 17:05 | XMS_ITS | Encounter Summary ---
Author Organization [facility] Address [address] [place] [address] [place] [address] Phone Care Team Providers Care Intelligence Support Officer Name Role Phone Sedrick Shea MD Primary Care Provider Belen Edwards PLASTERER JOURNEYMAN Primary Care Provider Rukhsana Melgar PLASTERER JOURNEYMAN Primary Care Provider [phone]- [phone] Encounter Details Date Type Department Care Team (Latest Contact Info) Description 06/19/2022 Transcribe Orders [facility] Cardiovascular Clinic [address] [place] [address] Fiorella Vallecillo [address] [place] [address] [email or web address] Implantable loop recorder present (Primary Dx) Social History Tobacco Use Types [...] as of this encounter Visit Diagnoses Diagnosis Implantable loop recorder present- Primary documented in this encounter Additional Health Concerns Assessment Noted Time PHQ-2 Depression Total Score: 2 08/25/19 21 8:59 AM EDT documented as of this encounter Care Teams Intelligence Support Officer Relationship Specialty Start Date End Date Sedrick Shea MD [address] [place] [phone] [email or web address] PCP - General Internal Medicine 02/06/21 02/12/23 Belen Edwards NP [address] [place] [phone] [email or web address] PCP - General Nurse Practitioner 02/13/23 10/19/24 Rukhsana Melgar NP [address] [place] [phone] PCP - General Nurse Practitioner 10/20/24 documented as of this encounter Additional Source Comments The information contained in this document represents components of the legal health record. It is not the complete legal health record.[facility]
--- OUTSIDE RECORDS SUMMARY | 2025-04-01 17:05 | XMS_ITS | Encounter Summary ---
Author Organization [facility] Address [address] [place] [address] Phone Care Team Providers Care Dancer Or Choreographer Name Role Phone Sedrick Shea MD Primary Care Provider Belen Edwards TYPING POOL SUPERVISOR Primary Care Provider Rukhsana Melgar TYPING POOL SUPERVISOR Primary Care Provider [phone]- [phone] Encounter Details Date Type Department Care Team ([facility] Contact Info) Description 06/19/2022 Procedure Pass [facility] Cardio EP Device Monitoring [address] [place] [address] Social History Tobacco Use Types Packs/Day Years [...] documented as of this encounter Care Teams Dancer Or Choreographer Relationship Specialty Start Date End Date Sedrick Shea MD [address] [place] [phone] [email or web address] PCP - General Internal Medicine 02/06/21 02/12/23 Belen Edwards NP [address] [place] [phone] [email or web address] PCP - General Nurse Practitioner 02/13/23 10/19/24 Rukhsana Melgar NP [address] [place] [phone] PCP - General Nurse Practitioner 10/20/24 documented as of this encounter Additional Source Comments The information contained in this document represents components of the legal health record. It is not the complete legal health record.[facility]
--- OUTSIDE RECORDS SUMMARY | 2025-04-01 17:05 | XMS_ITS | Encounter Summary ---
Author Organization [facility] Address [address] [place] [address] Phone Care Team Providers Care Laborer Heading Name Role Phone Sedrick Shea MD Primary Care Provider Belen Edwards COURT MANAGER Primary Care Provider Rukhsana Melgar COURT MANAGER Primary Care Provider [phone] Encounter Details Date Type Department Care Team ([facility] Contact Info) Description 07/06/2022 Procedure Pass [facility] Cardio EP Device Monitoring [address] [place] [address] Social History Tobacco Use Types Packs/Day Years [...] documented as of this encounter Care Teams Laborer Heading Relationship Specialty Start Date End Date Sedrick Shea MD [address] [place] [address] [email or web address] PCP - General Internal Medicine 02/06/21 02/12/23 Belen Edwards NP [address] [place] [phone] [email or web address] PCP - General Nurse Practitioner 02/13/23 10/19/24 Rukhsana Melgar NP [address] [place] [address] PCP - General Nurse Practitioner 10/20/24 documented as of this encounter Additional Source Comments The information contained in this document represents components of the legal health record. It is not the complete legal health record.[facility]
--- OUTSIDE RECORDS SUMMARY | 2025-04-01 17:05 | XMS_ITS | Encounter Summary ---
Author Organization [facility] Address [facility] [address] [place] [address] Phone Care Team Providers Care Tooth Cutter Spur Name Role Phone Sedrick Shea MD Primary Care Provider [phone] Belen Edwards BRAZE OPERATOR Primary Care Provider Rukhsana Melgar BRAZE OPERATOR Primary Care Provider [phone] Encounter Details Date Type Department Care Team (Late st Contact Info) Description 08/22/2022 Procedure Pass [facility] Cardio EP Device Monitoring [address] [place] [address] Social History Tobacco Use Types Packs/Day Years [...] documented as of this encounter Care Teams Tooth Cutter Spur Relationship Specialty Start Date End Date Sedrick Shea MD [address] [place] [address] [email or web address] PCP - General Internal Medicine 02/06/21 02/12/23 Belen Edwards NP [address] [place] [phone] [email or web address] PCP - General Nurse Practitioner 02/13/23 10/19/24 Rukhsana Melgar NP [address] [place] [address] PCP - General Nurse Practitioner 10/20/24 documented as of this encounter Additional Source Comments The information contained in this document represents components of the legal health record. It is not the complete legal health record.[facility]
--- OUTSIDE RECORDS SUMMARY | 2025-04-01 17:05 | XMS_ITS | Encounter Summary ---
Author Organization [facility] Address [facility] [address] [place] [address] Phone Care Team Providers Care Government Relations Analyst Name Role Phone DiptiMarnie Yazmin [place]FIELD Primary Care Provider [phone] Sedrick Shea MD Primary Care Provider [phone] Belen Edwards SALES CONTRACT ADMINISTRATOR Primary Care Provider Rukhsana Melgar SALES CONTRACT ADMINISTRATOR Primary Care Provider [phone] Encounter Details Date Type Department Care Team (Latest Contact Info) Description 01/08/2021 Transcribe Orders Virtual Department [address] [place] [address] Sedrick Shea MD [address] [place] [address] [phone] [email or web address] Osteoporosis, unspecified osteoporosis type, unspecified pathological fracture presence (Primary Dx) Social History Tobacco Use Types [...] documented as of this encounter Results * BD DXA AXIAL (SPINE) WITH HIP [...] bone mineral density was calculated at 0.523 gm/fv4myut a T- score of -2.9 falling within [...] BD BONE DENSITY DEXA Fin al Result documented in this encounter Visit Diagnoses Diagnosis Osteoporosis, unspecified osteoporosis type, unspecified pathological fracture presence- Primary Osteoporosis, unspecified osteoporosis type, unspecified pathological fracture presence documented in this encounter Additional Health Concerns Assessment Noted Time PHQ-2 Depression Total Score: 2 08/25/19 21 8:59 AM EDT documented as of this encounter Care Teams Government Relations Analyst Relationship Specialty Start Date End Date Marnie Resendez DO [address] [place] [address] ([phone]) [place] [address] PCP - General 04/08/20 02/05/21 Sedrick Shea MD [address] [place] [address] [email or web address] PCP - General Internal Medicine 02/06/21 02/12/23 Belen Edwards NP [address] [place] [phone] [email or web address] PCP - General Nurse Practitioner 02/13/23 10/19/24 Rukhsana Melgar NP [address] [place] [address] PCP - General Nurse Practitioner 10/20/24 documented as of this encounter Additional Source Comments The information contained in this document represents components of the legal health record. It is not the complete legal health record.[facility]
--- OUTSIDE RECORDS SUMMARY | 2025-04-01 17:06 | XMS_ITS | Encounter Summary ---
Author Organization [facility] Address [facility] [employer] [facility] [address] [place] [address] Phone Care Team Providers Care Advice Nurse Name Role Phone ResendezMarnie dodson Yazmin MAYFIELD Primary Care Provider [phone] Sedrick Shea MD Primary Care Provider [phone] Belen Edwards LOGGING EQUIPMENT MECHANIC Primary Care Provider Rukhsana Melgar LOGGING EQUIPMENT MECHANIC Primary Care Provider [phone] Encounter Details Date Type Department Care Team (Late st Contact Info) Description 10/03/2020 Procedure Pass [facility] Electrophysiology Lab [address] [place] [address] [phone] Social History Tobacco Use Types Packs/Day Years [...] AM EST documented as of this encounter Functional Status * Calculated C-SSRS Risk Score (Lifetime/Recent) Answer Date of Assessment Author No Risk Indicated 10/03/2020 6:00 PM EDT Krupa Begum RN * [place] Suicide Severity Rating Scale (Screener/Recent Self-Report) Question Answer Date of Assessment Author 1. Wish to be (Past 1 Month) No 10/03/2020 6:00 PM EDT Krupa Begum RN 2. Non-Specific Active Suicidal Thoughts (Past 1 Month) No 10/03/2020 6:00 PM EDT Krupa Begum RN 6. Suicidal Behavior (Lifetime) No 10/03/2020 6:00 PM EDT Krupa Begum RN documented as of this encounter Plan of Treatment Not on file documented as of this encounter Visit Diagnoses Not on filedocumented in this encounter Additional Health Concerns Assessment Noted Time PHQ-2 Depression Total Score: 2 08/25/19 21 8:59 AM EDT documented as of this encounter Care Teams Advice Nurse Relationship Specialty Start Date End Date Marnie Resendez DO [address] [place] [address] ([phone]) [place] [address] PCP - General 04/08/20 02/05/21 Sedrick Shea MD [address] [place] [address] [email or web address] PCP - General Internal Medicine 02/06/21 02/12/23 Belen Edwards NP [address] [place] [phone] [email or web address] PCP - General Nurse Practitioner 02/13/23 10/19/24 Rukhsana Melgar NP [address] [place] [address] PCP - General Nurse Practitioner 10/20/24 documented as of this encounter Additional Source Comments The information contained in this document represents components of the legal health record. It is not the complete legal health record.[facility]
--- OUTSIDE RECORDS SUMMARY | 2025-04-01 17:06 | XMS_ITS | Encounter Summary ---
Author Organization [facility] Address [facility] [address] [place] [address] Phone Care Team Providers Care Medical Scheduler Name Role Phone DiptiMarnie Yazmin MAYFIELD Primary Care Provider [phone] Sedrick Shea MD Primary Care Provider [phone] Belen Edwards WINDOW CUTTER Primary Care Provider Rukhsana Melgar WINDOW CUTTER Primary Care Provider [phone] Encounter Details Date Type Department Care Team (Late st Contact Info) Description 10/02/2020 Procedure Pass [facility] [address] [place] [address] Social History Tobacco Use Types Packs/Day Years [...] 6:00 PM EDT Krupa Begum RN * [place] Suicide Severity Rating Scale (Screener/Recent Self-Report) Question [...] documented as of this encounter Care Teams Medical Scheduler Relationship Specialty Start Date End Date Marnie Resendez DO [address] [place] [address] ([phone]) [place] [address] PCP - General 04/08/20 02/05/21 Sedrick Shea MD [address] [place] [address] [email or web address] PCP - General Internal Medicine 02/06/21 02/12/23 Belen Edwards NP [address] [place] [phone] [email or web address] PCP - General Nurse Practitioner 02/13/23 10/19/24 Rukhsana Melgar NP [address] [place] [address] PCP - General Nurse Practitioner 10/20/24 documented as of this encounter Additional Source Comments The information contained in this document represents components of the legal health record. It is not the complete legal health record.[facility]
--- OUTSIDE RECORDS SUMMARY | 2025-04-01 17:06 | XMS_ITS | Encounter Summary ---
Author Organization [facility] Address [facility] [employer] [facility] [address] [place] [address] Phone Care Team Providers Care Senior Mainframe Developer Name Role Phone Marnie Resendez DO Primary Care Provider [phone] Sedrick Shea MD Primary Care Provider [phone] Belen Edwards SECURITY TEST ENGINEER Primary Care Provider Rukhsana Melgar SECURITY TEST ENGINEER Primary Care Provider [phone] Encounter Details Date Type Department Care Team (Late st Contact Info) Description 09/11/2020 Procedure Pass [facility] Electrophysiology Lab [address] [place] [address] Social History Tobacco Use Types Packs/Day Years [...] documented as of this encounter Care Teams Senior Mainframe Developer Relationship Specialty Start Date End Date Marnie Resendez DO [address] [place] [address] ([phone]) [place] [address] PCP - General 04/08/20 02/05/21 Sedrick Shea MD [address] [place] [address] [email or web address] PCP - General Internal Medicine 02/06/21 02/12/23 Belen Edwards NP [address] [place] [phone] [email or web address] PCP - General Nurse Practitioner 02/13/23 10/19/24 Rukhsana Melgar NP [address] [place] [address] PCP - General Nurse Practitioner 10/20/24 documented as of this encounter Additional Source Comments The information contained in this document represents components of the legal health record. It is not the complete legal health record.[facility]
--- OUTSIDE RECORDS SUMMARY | 2025-04-01 17:07 | XMS_ITS ---
Author Name Zaria Carreno Address Unknown Organization [place] Care Team Providers Care Systems Analysis Manager Name Role Phone Unavailable Primary Care Physician Unavailab le History Of Present Illness This is a 69 year old female who is an established patient who is being seen for an evaluation of skin lesions.Location: body throughoutQuality: asymptomaticSeverity: severeModifying Factors: Nothingmakes the lesion better or worseDuration: yearsHistory of Previous Treatments: has not been treatedP ertinent History: actinic keratoses, basal cell skin cancer , melanoma - unspecified, removed in unspecified, and squamous cell skin cancer Pertinent Negatives: no family history of melanomaAdditional Visit Reasons: surveillance against skin cancer recurrences Allergies, Adverse Reactions, Alerts Substance RxNorm Reaction(s) Severity Status Start Da te Penicillins unspecified active omeprazole unspecified active metronidazole unspecified active Levaquin unspecified active codeine unspecified active Cipro unspecified active CT scan dye N/A N/A N/A N/A N/A Medications Medication Generic Name RxNorm Strength Strength Unit Route Dose Dose Form Frequency Date Started Date Ended Status Indication Sig cyclosporin e cyclospo rine 0.05 % Ophtha lmic (eye) 1 dropp erett e bid active acyclovir 860374 200 mg Oral 1 capsu le bid active citalopram 139342 10 mg Oral 1 table t daily active Eliquis apixaban 5 mg Oral 1 table t daily active folic acid folic acid 1 mg Oral 1 table t daily active metoprolol tartrate metoprol ol tartrate 25 mg Oral 1 table t daily active Vitamin D3 cholecal ciferol (vitamin D3) 10 mcg (400 unit) Oral 1 capsu le daily active Problems Problem Code Type Status Date of Diagnosis Date of Resolution Cerebrovascular accident (disorder) 832613849(SN OMED) Problem active Senile hyperkeratosis (disorder) 064833039(SN OMED) Diagnosis active 11/09/2018 Inflamed seborrheic keratosis (disorder) 367784937(SN OMED) Diagnosis active 09/21/2018 Scar conditions and fibrosis of skin (disorder) 009120470(SN OMED) Diagnosis active 09/22/2017 Other specified health status Z78.9(ICD-10 ) Diagnosis active 01/13/2017 Other specified health status Z78.9(ICD-10 ) Diagnosis active 01/13/2017 Actinic keratosis (disorder) 986633974(SN OMED) Problem active Melanocytic nevus of trunk (disorder) 618487347(SN OMED) Diagnosis active 03/18/2016 Benign neoplasm of skin of lower limb (disorder) 11076302(SNO MED) Diagnosis active 05/03/2015 Actinic keratosis (disorder) (SN OMED) Diagnosis active 08/18/2014 Actinic keratosis (disorder) (SN OMED) Diagnosis active 11/22/2013 Acne (disorder) 17647073(SNO MED) Diagnosis active 11/02/2013 Neoplasm of uncertain behavior of skin (disorder) 03758630(SNO MED) Diagnosis active 12/04/2020 Actinic keratosis (disorder) (SN OMED) Diagnosis active 12/04/2020 Melanocytic nevus (disorder) 122803647(SN OMED) Diagnosis active 12/04/2020 Seborrheic keratosis (disorder) 830115249(SN OMED) Diagnosis active 12/04/2020 Disorder of pigmentation (disorder) 142987653(SN OMED) Diagnosis active 12/04/2020 Epidermoid cyst of skin (disorder) 821219885(SN OMED) Diagnosis active 12/04/2020 History of malignant melanoma of the skin (situation) 304311380705 (SNOMED) Diagnosis active 12/04/2020 History of malignant neoplasm of skin (situation) 084682412(SN OMED) Diagnosis active 12/04/2020 Basal cell carcinoma of nose (disorder) 679197856(SN OMED) Diagnosis active 01/09/2021 Melanocytic nevus (disorder) 935869339(SN OMED) Diagnosis active 09/29/2023 Seborrheic keratosis (disorder) 196116287(SN OMED) Diagnosis active 09/29/2023 Epidermoid cyst of skin (disorder) 529775943(SN OMED) Diagnosis active 09/29/2023 Disorder of pigmentation (disorder) 346248038(SN OMED) Diagnosis active 09/29/2023 Hemangioma of skin and subcutaneous tissue (disorder) 854363920(SN OMED) Diagnosis active 09/29/2023 Paresthesia (finding) 25841129(SNO MED) Diagnosis active 09/29/2023 History of melanoma in situ of skin (situation) 484410857315 6(SNOMED) Diagnosis active 09/29/2023 History of malignant neoplasm of skin (situation) 319451084(SN OMED) Diagnosis active 09/29/2023 Arthritis (disorder) 8340996(SNOM ED) Problem active Asthma (disorder) 603661705(SN OMED) Problem active Atrial fibrillation (disorder) 79942598(SNO MED) Problem active Basal cell carcinoma of skin (disorder) 480122110(SN OMED) Problem active Malignant melanoma (disorder) 698170611(SN OMED) Problem active Squamous cell carcinoma (disorder) 198020516(SN OMED) Problem active Patient encounter status (finding) 063930057(SN OMED) Diagnosis active 01/29/2024 Seborrheic keratosis (disorder) 852070594(SN OMED) Diagnosis active 01/29/2024 Epidermoid cyst of skin (disorder) 581459175(SN OMED) Diagnosis active 01/29/2024 Actinic keratosis (disorder) 492919125(SN OMED) Diagnosis active 03/31/2025 Melanocytic nevus (disorder) 308209223(SN OMED) Diagnosis active 03/31/2025 Paresthesia (finding) 01294537(SNO MED) Diagnosis active 03/31/2025 Seborrheic keratosis (disorder) 608825448(SN OMED) Diagnosis active 03/31/2025 Epidermoid cyst of skin (disorder) 607346064(SN OMED) Diagnosis active 03/31/2025 Disorder of pigmentation (disorder) 413052716(SN OMED) Diagnosis active 03/31/2025 History of melanoma in situ of skin (situation) 849028973866 6(SNOMED) Diagnosis active 03/31/2025 History of malignant neoplasm of skin (situation) 299395738(SN OMED) Diagnosis active 03/31/2025 History of clinical finding in subject (situation) 337482240(SN OMED) Problem active Results No data Encounters Service provided at [place], [address] [place] [address], [address], [place], [place] [id number]. Office phonenumber is [phone]. Office fax number is [phone]. 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)Seborrheic Keratoses (L82.1)Milia (L72.0)Lentigines (L81.4)History of Malignant Melanoma in situ (Z86.006)History of non-melanoma skin cancer (Z85.828) [place] 03/31/2025 14:15:00 [facility] [address] Reason For Referral No data Procedures Procedure Date Documentation of current medications (pr ocedure) 03/31/2025 12:00 am [place] Destruction of premalignant skin lesion (procedure) 03/31/2025 12:00 am [place] Cryotherapy of skin lesion with liquid n itrogen (procedure) 12/04/2020 12:00 am [place] Shave biopsy (procedure) 12/04/2020 12:0 0 am [place] Documentation of past medical history (p rocedure) Documentation of past medical history (p rocedure) Documentation of past medical history (p rocedure) Documentation of past medical history (p rocedure) Documentation of past medical history (p rocedure) Documentation of past medica l history (procedure) Atrial Ablation for A fib3 laparotomies for ovarian cysts Review Of Systems Provider reviewed on Mar 31, 2025.A focused review of systems was performed including Integumentary.No Problems With Healing And No Problems With Scarring (hypertrophic Or Keloid). Assessment 1.Actinic KeratosesLiquid Nitrogen: nasal dorsum; nasal dorsum; Application Tool - Liquid Nitrogen Sprayer; Number of freeze-thaw Cycles - 1 freeze-thaw cycle.2.Melanocytic NeviCounseling3.Notalgia ParestheticaCounseling4.Seborrheic KeratosesReassurance5.MiliaReassurance6.LentiginesSunscreen Recomme ndations7.History of Malignant Melanoma in situ - Treated at [place], [place] ~3430Pjtkvxkpsp3.History of non-melanoma skin cancerCounselingOther:. Plan of Care Future visit for 03/31/2026 - Follow up in 1 year for: Skin Check - 15 minutes. Other Instructions:cse slot. Other Instructions: cse slot. Instructions * I counseled the patient regarding the following:Expectations: Benign Nevi are pigmented nests of cells within the skin. No treatment is necessary. Instructions: Monthly self-skin checks to monitor for any changes in moles are recommendedContact Office if: Any moles change in size, shape or color; itch, burn or bleed. * I counseled the patient regarding the following:Expectations: Notalgia paresthetica is a relativelycommon condition which causes localized itching or mild pain near the scapula. It occurs secondary to nerve problems, often associated with neck pathology.I recommended the following: Camphor 0.5% Men thol 0.5% - Sarna Anti-Itch * I counseled the patient regarding the following:Expectations: Scars from excisional sites of melanoma should be monitored for any recurrences. Monthly self-skin checks should be performed to monitor for any moles that change in size, shape or color, itch burn or bleed.Contact Office if: Patient notices any new or changing moles, develops constitutional symptoms or develops new lesions within or around the previous melanoma scar. * I counseled the patient regarding the following:Contact Office if: If the patient notices discoloration or a bump arising from a previously stable scar or any new lesions that are not healing.I recommended the following: Broad Spectrum Sunscreen SPF 30+ Social History Code Activity Start Date End Date 8656855 (SNOMED) Former smoker Sex Female Sexual orientation Unspecified Gender identity Unspecified Vital Signs No data Insurances Coverage Status Coverage Type Relationship to Subscriber Member Identifier Subscriber Identifier Group Identifier Payer Identifier Inactive 1 Self [id number] Active Self [id number] Inactive 2 Self [id number] Active Self [id number]
--- OUTSIDE RECORDS SUMMARY | 2025-04-01 17:07 | XMS_ITS | Encounter Summary ---
Author Organization [facility] Address [address] [place] [address] [place] [address] Phone Care Team Providers Care Channel Marketing Coordinator Name Role Phone Dipti Marnie Arce DO Primary Care Provider [phone] Sedrick Shea MD Primary Care Provider [phone] Belen Edwards REGISTERED RADIOLOGIC TECHNOLOGIST Primary Care Provider Rukhsana Melgar REGISTERED RADIOLOGIC TECHNOLOGIST Primary Care Provider [phone] Reason for Referral * MRI/CAT Scan - Closed Specialty Diagnoses / Procedures Referred By Scott nguyen Referred To Contact Radiology Diagnoses Allergic reaction to contrast material, subsequent encounter Paroxysmal atrial fibrillation Procedures CT 3D Reconstruction CT Angio Chest Jamie Fernandez MD Phone: tel: fax: mailto:[email or web address] Referral ID Status Reason Start Date Expiration Date Visits Re quested Visits Authorized Closed 10/02/2020 10/02/2021 1 1 Encounter Details Date Type Department Care Team (Latest Contact Info) Description 10/02/2020 Ancillary Orders [facility] Radiology [facility] [place] [address] Jamie Fernandez MD [address] [place] [address] [email or web address] Allergic reaction to contrast material, subsequent encounter; Paroxysmal atrial fibrillation Social History Tobacco Use Types Packs/Day Years [...] 6:00 PM EDT Krupa Begum RN * [place] Suicide Severity Rating Scale (Screener/Recent Self-Report) Question [...] as of this encounter Results * CT 3D Reconstruction CT Angio Chest (10/02/2020 12:19 PM EDT) Anatomical Region Laterality Modality Chest Computed Tomogra phy 10/02/2020 4:16 PM EDT Impressions 10/02/2020 8:44 PM EDT 1. There are 2 right and 2 left pulmonary veins. 2. The esophagus is located midline, closer to the right inferior pulmonary vein. 3. There is no left atrial appendage thrombus. ATTESTATION: Bhaskar Proctor, as teaching physician have reviewed the images, if any, for this patient's exam, and if necessary, have edited the report originally created by Peggy Zambrano. Narrative 10/02/2020 8:44 PM EDT Reason for exam (per EHR order): Pre-Op; pre-AF ablation. R/o thrombus. 65 year old woman referred for pulmonary vein study prior to catheter ablation. TECHNIQUE: Cardiac CT Angiography TECHNIQUE: CT Angiography Scans: Angiogram - ECG gated Cardiac Delay (60 sec) - ECG gated Cardiac Oral contrast: None. Intravenous contrast: 75 mL 3D Post-processing: MIPS COMPARISON: None. FINDINGS: CARDIAC: Pulmonary Veins: There are 2 right and 2 left pulmonary veins. The esophagus is located midline, closer to the right inferior pulmonary vein. Left atrial appendage: cactus morphology; no left atrial appendage thrombus. Other Cardiac Findings: Coronary Arteries: This study was not optimized for the assessment of the coronary arteries.No coronary artery calcifications noted. Chambers: Mildly biatrial enlargement. Mildly dilated right ventricle. Myocardium: Normal thickness. No out-pouchings or masses. Valves: No leaflet thickening or calcifications. Trileaflet aortic valve. Pericardium: No pericardial effusion, calcification or thickening. Aorta: There is no aortic rupture, aneurysm, dissection, intramural hematoma, or perivascular inflammation. Pulmonary arteries: No enlargement. No central pulmonary embolism. Non-Cardiac Findings: 4-mm nodule in the right upper lobe (9:94). Given flattened appearance, likely represents an intrapulmonary lymph node. Implantable loop recorder in the left chest wall. Degenerative changes of the spine. Procedure Note Bhaskar Tavares MBBS - 10/02/2020 Reason for exam (per EHR order): Pre-Op; pre-AF ablation. R/o thrombus. 65 year old woman referred for pulmonary vein study prior to catheterablation. TECHNIQUE: Cardiac CT Angiography TECHNIQUE: CT Angiography Scans: Angiogram - ECG gated Cardiac Delay (60 sec) - ECG gated Cardiac Oral contrast: None. Intravenous contrast: 75 mL 3D Post-processing: MIPS COMPARISON: None. FINDINGS: CARDIAC: Pulmonary Veins: There are 2 right and 2 left pulmonary veins. The esophagus is located midline, closer to the right inferior pulmonaryvein. Left atrial appendage: cactus morphology; no left atrial appendagethrombus. Other Cardiac Findings: Coronary Arteries: This study was not optimized for the assessment of thecoronary arteries.No coronary artery calcifications noted. Chambers: Mildly biatrial enlargement. Mildly dilated right ventricle. Myocardium: Normal thickness. No out-pouchings or masses. Valves: No leaflet thickening or calcifications. Trileaflet aortic valve. Pericardium: No pericardial effusion, calcification or thickening. Aorta: There is no aortic rupture, aneurysm, dissection, intramuralhematoma, or perivascular inflammation. Pulmonary arteries: No enlargement. No central pulmonary embolism. Non-Cardiac Findings: 4-mm nodule in the right upper lobe (9:94). Given flattened appearance,likely represents an intrapulmonary lymph node. Implantable loop recorder in the left chest wall. Degenerative changes of the spine. IMPRESSION: 1. There are 2 right and 2 left pulmonary veins. 2. The esophagus is located midline, closer to the right inferiorpulmonary vein. 3. There is no left atrial appendage thrombus. ATTESTATION: IBhaskar, as teaching physician have reviewed theimages, if any, for this patient's exam, and if necessary, have edited thereport originally created by Peggy Zambrano. Jamie Fernandez MD IMG CT Final Resu lt documented in this encounter Visit Diagnoses Diagnosis Allergic reaction to contrast material, subsequent encounter Paroxysmal atrial fibrillation Atrial fibrillation Allergic reaction to contrast material, subsequent encounter Paroxysmal atrial fibrillation Atrial fibrillation documented in this encounter Additional Health Concerns Assessment Noted Time PHQ-2 Depression Total Score: 2 08/25/19 21 8:59 AM EDT documented as of this encounter Care Teams Channel Marketing Coordinator Relationship Specialty Start Date End Date Marnie Resendez DO [address] [place] [address] ([phone]) [place] [address] PCP - General 04/08/20 02/05/21 [place]rick Shea MD [address] [place] [address] [email or web address] PCP - General Internal Medicine 02/06/21 02/12/23 Belen Edwards NP [address] [place] [phone] [email or web address] PCP - General Nurse Practitioner 02/13/23 10/19/24 Rukhsana Melgar NP [address] [place] [address] PCP - General Nurse Practitioner 10/20/24 documented as of this encounter Additional Source Comments The information contained in this document represents components of the legal health record. It is not the complete legal health record.[facility]
--- OUTSIDE RECORDS SUMMARY | 2025-04-01 17:07 | XMS_ITS | Encounter Summary ---
Author Organization [facility] Address [address] [place] [address] Phone Care Team Providers Care E Commerce Developer Name Role Phone [place] Shea MD Primary Care Provider Belen Edwards HIDE MILL MAN Primary Care Provider Rukhsana Melgar HIDE MILL MAN Primary Care Provider [phone] Encounter Details Date Type Department Care Team ([facility] Contact Info) Description 06/19/2022 Procedure Pass [facility] Cardio EP Device Monitoring [address] [place] [address] Social History Tobacco Use Types Packs/Day Years [...] documented as of this encounter Care Teams E Commerce Developer Relationship Specialty Start Date End Date Sedrick Shea MD [address] [place] [address] [email or web address] PCP - General Internal Medicine 02/06/21 02/12/23 Belen Edwards NP [address] [place] [phone] [email or web address] PCP - General Nurse Practitioner 02/13/23 10/19/24 Rukhsana Melgar NP [address] [place] [address] PCP - General Nurse Practitioner 10/20/24 documented as of this encounter Additional Source Comments The information contained in this document represents components of the legal health record. It is not the complete legal health record.[facility]
--- OUTSIDE RECORDS SUMMARY | 2025-04-01 17:07 | XMS_ITS | Encounter Summary ---
Author Organization [facility] Address [facility] [address] [place] [address] Phone Care Team Providers Care Feed Research Aide Name Role Phone Marnie Resendez DO Primary Care Provider [phone] Sedrick Shea MD Primary Care Provider Belen Edwards GRAIN SPOUTER Primary Care Provider Rukhsana Melgar GRAIN SPOUTER Primary Care Provider [phone] Encounter Details Date Type Department Care Team (Late st Contact Info) Description 09/14/2020 Procedure Pass [facility] [address] [place] [address] Social History Tobacco Use Types Packs/Day Years [...] documented as of this encounter Care Teams Feed Research Aide Relationship Specialty Start Date End Date Marnie Resendez DO [address] [place] [address] ([phone]) [place] [address] PCP - General 04/08/20 02/05/21 Sedrick Shea MD [address] [place] [address] [email or web address] PCP - General Internal Medicine 02/06/21 02/12/23 Belen Edwards NP [address] [place] [phone] [email or web address] PCP - General Nurse Practitioner 02/13/23 10/19/24 Rukhsana Melgar NP [address] [place] [address] PCP - General Nurse Practitioner 10/20/24 documented as of this encounter Additional Source Comments The information contained in this document represents components of the legal health record. It is not the complete legal health record.[facility]
--- OUTSIDE RECORDS SUMMARY | 2025-04-01 17:07 | XMS_ITS | Encounter Summary ---
Author Organization [facility] Address [facility] [address] [place] [address] Phone Care Team Providers Care Manager Delivery Name Role Phone ResendezMarnie dodson Yazmin [place] Primary Care Provider [phone] Sedrick Shea MD Primary Care Provider [phone] Belen Edwards CARPORT ERECTOR Primary Care Provider Rukhsana Melgar CARPORT ERECTOR Primary Care Provider [phone] Encounter Details Date Type Department Care Team (Latest Contact Info) Description 10/02/2020 Ancillary Orders [facility] [address] [place] [address] Aditi Lucas PA-C [address] [facility] [address] [place] [address] [email or web address] Allergic reaction to contrast material, subsequent encounter; [...] 6:00 PM EDT Krupa Begum RN * [place] Suicide Severity Rating Scale (Screener/Recent Self-Report) Question [...] as of this encounter Visit Diagnoses Diagnosis Allergic reaction to contrast material, subsequent encounter Paroxysmal atrial fibrillation Atrial fibrillation documented in this encounter Additional Health Concerns Assessment Noted Time PHQ-2 Depression Total Score: 2 08/25/19 8:59 AM EDT documented as of this encounter Care Teams Manager Delivery Relationship Specialty Start Date End Date Marnie Resendez DO [address] [place] [address] ([phone]) [place] [address] PCP - General 04/08/20 02/05/21 Sedrick Shea MD [address] [place] [address] [email or web address] PCP - General Internal Medicine 02/06/21 02/12/23 Belen Edwards NP [address] [place] [phone] [email or web address] PCP - General Nurse Practitioner 02/13/23 10/19/24 Rukhsana Melgar NP [address] [place] [address] PCP - General Nurse Practitioner 10/20/24 documented as of this encounter Additional Source Comments The information contained in this document represents components of the legal health record. It is not the complete legal health record.[facility]
--- OUTSIDE RECORDS SUMMARY | 2025-04-01 17:08 | XMS_ITS | Encounter Summary ---
Author Organization [facility] Address [address] [place] [address] Phone Care Team Providers Care Retail General Manager Name Role Phone Rukhsana Melgar NP Primary Care Provider [phone] Encounter Details Date Type Department Care Team ([facility] st Contact Info) Description 11/15/2024 Transcribe Orders Virtual Department [address] [place] [address] Peyman Fuentes [place] [email or web address] Abnormal findings on diagnostic imaging of other [...] as of this encounter Plan of Treatment Scheduled Orders Name Type Priority Associated Diagnoses Orde r Schedule Pulmonary Function Test Reason for Exam: Abnormal Chest X-ray; Performing Location: [facility] PFT Routine Abnormal findings on diagnostic imaging of other specified body structures Expected: 11/15/2024, Expires: 11/15/2025 documented as of this encounter Visit Diagnoses Diagnosis Abnormal findings on diagnostic imaging of other specified body structures- Primary documented in this encounter Additional Health Concerns Assessment Noted Time PHQ-2 Depression Total Score: 2 08/25/19 21 8:59 AM EDT documented as of this encounter Care Teams Retail General Manager Relationship Specialty Start Date End Date Rukhsana Melgar NP [address] [place] [address] PCP - General Nurse Practitioner 10/20/24 documented as of this encounter Additional Source Comments The information contained in this document represents components of the legal health record. It is not the complete legal health record.[facility]
--- OUTSIDE RECORDS SUMMARY | 2025-04-01 17:08 | XMS_ITS | Encounter Summary ---
Author Organization [facility] Address [facility] [address] [place] [address] Phone Care Team Providers Care Med Surg Rn Name Role Phone Dipti Marnie Arce DO Primary Care Provider [phone] [place] Shea MD Primary Care Provider Belen Edwards SYSTEM CONTROLLER Primary Care Provider Rukhsana Melgar SYSTEM CONTROLLER Primary Care Provider [phone] Encounter Details Date Type Department Care Team (Late st Contact Info) Description 09/12/2020 Transcribe Orders [facility] [address] [place] [address] [email or web address] Social History Tobacco Use Types Packs/Day Years [...] documented as of this encounter Care Teams Med Surg Rn Relationship Specialty Start Date End Date Marnie Resendez DO [address] [place] [address] ([address]) [place] [address] PCP - General 04/08/20 02/05/21 Sedrick Shea MD [address] [place] [address] [email or web address] PCP - General Internal Medicine 02/06/21 02/12/23 Belen Edwards NP [address] [place] [phone] [email or web address] PCP - General Nurse Practitioner 02/13/23 10/19/24 Rukhsana Melgar NP [address] [place] [address] PCP - General Nurse Practitioner 10/20/24 documented as of this encounter Additional Source Comments The information contained in this document represents components of the legal health record. It is not the complete legal health record.[facility]
--- OUTSIDE RECORDS SUMMARY | 2025-04-01 17:08 | XMS_ITS | Encounter Summary ---
Author Organization [facility] Address [address] [place] [address] [place] [address] Phone Care Team Providers Care Wood Cabinetmaker Name Role Phone Belen Edwards CROOK OPERATOR Primary Care Provider Rukhsana Melgar CROOK OPERATOR Primary Care Provider [phone] Reason for Referral * MRI/CAT Scan - Closed Specialty Diagnoses / Procedures Referred By Scott t Referred To Contact Radiology Diagnoses Abnormal weight loss Procedures CT Abdomen Only (No Pelvis) Rukhsana Melgar NP [address] [place] [address] Phone: tel: fax: Referral ID Status Reason Start Date Expiration Date Visits Re quested Visits Authorized [id number] Closed 10/18/2024 10/18/2025 1 1 Encounter Details Date Type Department Care Team (Late st Contact Info) Description 10/18/2024 Transcribe Orders Virtual Department [address] [place] [address] Rukhsana Melgar NP [address] [place], [place] [phone] Abnormal weight loss (Primary Dx) Social History Tobacco Use Types [...] as of this encounter Results * CT ABDOMEN WITHOUT CONTRAST (10/27/2024 6:08 PM EDT) MGB IMG RECOMMENDATION COMMENT Mild bibasilar subpleural reticulation; Mild bronchiectasis; Differential: bibasilar early interstitial disease; Differential: bibasilar early lung disease [facility] Anatomical Region Laterality Modality Abdomen, Abdominal Vasculature C omputed Tomography 11/03/2024 8:35 AM EDT Impressions 11/03/2024 10:29 AM EDT 1. Healing fractures of the left 9th and 10th ribs. 2. No splenomegaly. 3. Mild bibasilar subpleural reticulation and bronchiectasis, which may represent early interstitial lung disease. RECOMMENDATION: Consider dedicated chest CT to further evaluate the lung parenchyma in 1-3 months. ATTESTATION: I, Dr. Hugo Killian as teaching physician, have reviewed the images for this case and if necessary edited the report originally created by Michel Hendricks. Narrative 11/03/2024 10:[address] ABDOMEN WITHOUT CONTRAST Referring clinician's provided indication for this examination in Epic: Outside Radiology Order; weight loss TECHNIQUE: Multidetector-row CT of the abdomen was performed without intravenous contrast using tailored dose modulation techniques. Images were reconstructed in the axial, coronal, and sagittal planes. COMPARISON: CT CARDIAC WITH CONTRAST ABSENCE OF INTRAVENOUS CONTRAST DECREASES SENSITIVITY FOR DETECTION OF FOCAL LESIONS AND VASCULAR PATHOLOGY. FINDINGS: Lower chest: No consolidation or pleural effusions. Mild bibasilar subpleural reticulation and bronchiectasis. Small fat-containing left Bochdalek's hernia. Liver: No suspicious focal lesions. Biliary: No biliary ductal dilatation. Noninflamed gallbladder. Spleen: No splenomegaly or focal lesions. Pancreas: No masses or ductal dilatation. Adrenal glands: No nodules. Kidneys/ureters: No solid masses or hydronephrosis. No stones. Bowel: Small periampullary duodenal diverticulum. No dilation or wall thickening. Peritoneum/retroperitoneum: No masses, free air, or fluid. Lymph nodes: No lymphadenopathy. Vessels: No abdominal aortic aneurysm. Atherosclerotic calcifications. Bones/soft tissues: Healing fractures of the anterolateral left 9th and 10th ribs. Grade 2 anterolisthesis of L5 on S1. Bilateral pars defects at L5. No destructive osseous lesions. Procedure Note Hugo Killian MD, ERYN - 11/03/2024 CT ABDOMEN WITHOUT CONTRAST Referring clinician's provided indication for this examination in [facility]:Outside Radiology Order; weight loss TECHNIQUE: Multidetector-row CT of the abdomen was performed withoutintravenous contrast using tailored dose modulation techniques. Imageswere reconstructed in the axial, coronal, and sagittal planes. COMPARISON: CT CARDIAC WITH CONTRAST ABSENCE OF INTRAVENOUS CONTRAST DECREASES SENSITIVITY FOR DETECTION OFFOCAL LESIONS AND VASCULAR PATHOLOGY. FINDINGS: Lower chest: No consolidation or pleural effusions. Mild bibasilarsubpleural reticulation and bronchiectasis. Small fat-containing leftBochdalek's hernia. Liver: No suspicious focal lesions. Biliary: No biliary ductal dilatation. Noninflamed gallbladder. Spleen: No splenomegaly or focal lesions. Pancreas: No masses or ductal dilatation. Adrenal glands: No nodules. Kidneys/ureters: No solid masses or hydronephrosis. No stones. Bowel: Small periampullary duodenal diverticulum. No dilation or wallthickening. Peritoneum/retroperitoneum: No masses, free air, or fluid. Lymph nodes: No lymphadenopathy. Vessels: No abdominal aortic aneurysm. Atherosclerotic calcifications. Bones/soft tissues: Healing fractures of the anterolateral left 9th [id number] ribs. Grade 2 anterolisthesis of L5 on S1. Bilateral pars defects atL5. No destructive osseous lesions. IMPRESSION: 1. Healing fractures of the left 9th and 10th ribs. 2. No splenomegaly. 3. Mild bibasilar subpleural reticulation and bronchiectasis, which mayrepresent early interstitial lung disease. RECOMMENDATION: Consider dedicated chest CT to further evaluate the lung parenchyma in 1- 3months. ATTESTATION: I, Dr. Hugo Killian as teaching physician, have reviewedthe images for this case and if necessary edited the report originallycreated by Michel Hendricks. us Rukhsana Melgar NP IMG CT XSPECIALTY ORDERABL ES Final Result documented in this encounter Visit Diagnoses Diagnosis Abnormal weight loss- Primary Loss of weight Abnormal weight loss Loss of weight documented in this encounter Additional Health Concerns Assessment Noted Time PHQ-2 Depression Total Score: 2 08/25/19 21 8:59 AM EDT documented as of this encounter Care Teams Wood Cabinetmaker Relationship Specialty Start Date End Date Belen Edwards NP [address] [place] [phone] [email or web address] PCP - General Nurse Practitioner 02/13/23 10/19/24 Rukhsana Melgar NP [address] [place] [address] PCP - General Nurse Practitioner 10/20/24 documented as of this encounter Additional Source Comments The information contained in this document represents components of the legal health record. It is not the complete legal health record.[facility]
--- OUTSIDE RECORDS SUMMARY | 2025-04-01 17:08 | XMS_ITS | Encounter Summary ---
Author Organization [facility] Address [facility] [address] [place] [address] Phone Care Team Providers Care Comic Writer Name Role Phone Belen Edwards DECORATION CHECKER Primary Care Provider Rukhsana Melgar DECORATION CHECKER Primary Care Provider [phone] Encounter Details Date Type Department Care Team (Late st Contact Info) Description 10/18/2024 Procedure Pass [facility], Ct Scan - [facility] [address] [place] [address] Social History Tobacco Use Types Packs/Day Years [...] documented as of this encounter Care Teams Comic Writer Relationship Specialty Start Date End Date Belen Edwards NP [address] [place] [phone] [email or web address] PCP - General Nurse Practitioner 02/13/23 10/19/24 Rukhsana Melgar NP [address] [place] [phone] PCP - General Nurse Practitioner 10/20/24 documented as of this encounter Additional Source Comments The information contained in this document represents components of the legal health record. It is not the complete legal health record.[facility]
--- OUTSIDE RECORDS SUMMARY | 2025-04-01 17:08 | XMS_ITS | Encounter Summary ---
Author Organization [facility] Address [facility] access hospital [facility] [address] [place] [address] Phone Care Team Providers Care Day Habilitation Specialist Name Role Phone Dipti Marnie Arce DO Primary Care Provider [phone] Sedrick Shea MD Primary Care Provider Belen Edwards YARD MANAGER Primary Care Provider Rukhsana Melgar YARD MANAGER Primary Care Provider +1- [phone] Encounter Details Date Type Department Care Team (Late st Contact Info) Description 09/14/2020 Transcribe Orders [facility] [address] [place] [address] [email or web address] Social History Tobacco Use Types Packs/Day Years [...] documented as of this encounter Care Teams Day Habilitation Specialist Relationship Specialty Start Date End Date Marnie Resendez DO [address] [place] [address] ([address]) [place] [address] PCP - General 04/08/20 02/05/21 Sedrick Shea MD [address] [place] [address] [email or web address] PCP - General Internal Medicine 02/06/21 02/12/23 Belen Edwards NP [address] [place] [phone] [email or web address] PCP - General Nurse Practitioner 02/13/23 10/19/24 Rukhsana Melgar NP [address] [place] [address] PCP - General Nurse Practitioner 10/20/24 documented as of this encounter Additional Source Comments The information contained in this document represents components of the legal health record. It is not the complete legal health record.[facility]
== END 2025-04-01 11:11 | disposition home or self-care (01) ==
LOC: HO.XRAY 11:10
DX: M25.561 Pain in right knee (principal)
CPT/HCPCS: 73564

== ENCOUNTER → 2025-04-01 11:16 | Outpatient (BNV) | payer MEDICARE, SELFPAY | PROVIDERS: Visit Provider Radiology Diagnostic Radiology | DX: M17.11 Unilateral primary osteoarthritis, right knee (principal) | CPT/HCPCS: 73564 ==

== ENCOUNTER 2025-04-20 12:57 | Outpatient (AMB) | payer MEDICARE, SELFPAY ==
--- NOTE | 2025-04-20 13:00 | A.OFFVIS_ITS ---
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 The patient states that she did have a cortisone injection given into her right knee in June. She got fairly good relief from that injection. She has taken Tylenol which gives her mild relief. She is not able to take anti-inflammatory medicines because she is on Eliquis. * Allergies ciprofloxacin Allergy (Verified 05/24/23 10:36) Chest Pain fluconazole Allergy (Verified 05/24/23 10:36) Rash Iodinated Contrast Media (Contrast Dye) Allergy (Verified 05/24/23 10:36) Shortness of Breath metronidazole Allergy (Verified 05/24/23 10:36) Rash omeprazole Allergy (Verified 05/24/23 10:36) Rash Penicillins Allergy (Verified 05/24/23 10:36) Rash codeine Adverse Reaction (Verified 05/24/23 10:36) Nausea avalox Allergy (Uncoded 05/24/23 10:36) Unknown Medication List - Last Reconciled 04/20/25 by Renato Phillips MD apixaban (Eliquis) 5 mg PO BID citalopram 10 mg PO DAILY lorazepam 0.5 mg PO BID PRN metoprolol tartrate 12.5 mg PO BID Physical Exam Vital Signs: BMI result Body Mass Index 21.7 Extrem Other: Right knee examination shows a minimal effusion, minimal crepitus with range of motion, tenderness along her medial joint line, positive Rosanna's test, instability Results Reviewed Results Reviewed: standing full weight-bearing x-rays of the patient's right knee show mild diffuse joint space narrowing, no acute bony abnormalities Assessment & Plan Assessment & Plan (1) Right knee pain: Code(s): M25.561 - Pain in right knee Category: Medical Plan Ms. Mchugh Presents with intermittent right knee pain due to early degenerative joint disease as well as possible medial meniscus tearing. I had a lengthy discussion with the patient regarding the treatment options. At this point the patient's symptoms are tolerable to her. She will continue with her activity modifications. She will follow up with me on an as-needed basis should her symptoms worsen in any way. Feel free to call me at any time should questions regarding her orthopedic management arise. Thank you very much for as alem me to see this very friendly patient. I spent 22 minutes in reviewing the patient's records and imaging studies, seeing the patient and documenting in the medical record. Coding Level of Care Code New Pt Level 3 (18419) Complex visit Add On G2211 Diagnoses Right knee pain M25.561
[2025-04-20 13:07] VITALS: BMI 21.7
--- OUTSIDE RECORDS SUMMARY | 2025-04-20 15:25 | XMS_ITS | Encounter Summary ---
Author Organization [facility] Address [facility] [address] [place] [address] Phone Care Team Providers Care Wood Preserving Plant Laborer Name Role Phone Sedrick Shea MD Primary Care Provider Belen Edwards SPRAY DRIER OPERATOR Primary Care Provider Rukhsana Melgar SPRAY DRIER OPERATOR Primary Care Provider [phone]- [phone] Encounter Details Date Type Department Care Team ([facility] Contact Info) Description 12/05/2021 Procedure Pass [facility] Cardio EP Device Monitoring [address] [place] [address] Social History Tobacco Use Types Packs/Day Years [...] as of this encounter Care Teams Wood Preserving Plant Laborer Relationship Specialty Start Date End Date Sedrick Shea MD [address] [place] [address] [email or web address] PCP - General Internal Medicine 02/06/21 02/12/23 Belen Edwards NP [address] [place] [phone] [email or web address] PCP - General Nurse Practitioner 02/13/23 10/19/24 Rukhsana Melgar NP [address] [place] [address] PCP - General Nurse Practitioner 10/20/24 documented as of this encounter Additional Source Comments The information contained in this document represents components of the legal health record. It is not the complete legal health record.[facility]
--- OUTSIDE RECORDS SUMMARY | 2025-04-20 15:25 | XMS_ITS | Encounter Summary ---
Author Organization [facility] Address [facility] [facility] [address] [place] [address] Phone Care Team Providers Care Executive Kitchen Manager Name Role Phone Belen Edwards ELECTROLOGIST Primary Care Provider Rukhsana Melgar ELECTROLOGIST Primary Care Provider [phone]- [phone] Encounter Details Date Type Department Care Team (Late st Contact Info) Description 02/09/2024 Transcribe Orders Virtual Department [address] [place] [address] Belen Edwards, LATA [address] [place] [phone] [email or web address] Age-related osteoporosis without current pathological fracture [...] documented as of this encounter Care Teams Executive Kitchen Manager Relationship Specialty Start Date End Date Belen Edwards NP [address] [place] [phone] [email or web address] PCP - General Nurse Practitioner 02/13/23 10/19/24 Rukhsana Melgar NP [address] [place] [address] PCP - General Nurse Practitioner 10/20/24 documented as of this encounter Additional Source Comments The information contained in this document represents components of the legal health record. It is not the complete legal health record.[facility]
--- OUTSIDE RECORDS SUMMARY | 2025-04-20 15:25 | XMS_ITS | Encounter Summary ---
Author Organization [facility] Address [facility] [address] [place] [address] Phone Care Team Providers Care Digital Retoucher Name Role Phone Belen Edwards COURT SPECIALIST Primary Care Provider Rukhsana Melgar COURT SPECIALIST Primary Care Provider [phone]- [phone] Encounter Details Date Type Department Care Team (Late st Contact Info) Description 08/21/2023 Procedure Pass [facility] Admitting Dept Virtual Department [address] [place] [address] Social History Tobacco Use Types Packs/Day Years [...] documented as of this encounter Care Teams Digital Retoucher Relationship Specialty Start Date End Date Belen Edwards NP [address] [place] [phone] [email or web address] PCP - General Nurse Practitioner 02/13/23 10/19/24 Rukhsana Melgar NP [address] [place] [address] PCP - General Nurse Practitioner 10/20/24 documented as of this encounter Additional Source Comments The information contained in this document represents components of the legal health record. It is not the complete legal health record.[facility]
--- OUTSIDE RECORDS SUMMARY | 2025-04-20 15:25 | XMS_ITS | Encounter Summary ---
Author Organization [facility] Address [facility] [employer] [facility] [address] [place] [address] Phone Care Team Providers Care Hospital Product Specialist Name Role Phone Sedrick Shea MD Primary Care Provider Belen Edwards FURNACE OPERATOR AND TENDER Primary Care Provider Rukhsana Melgar FURNACE OPERATOR AND TENDER Primary Care Provider [phone]- [phone] Encounter Details Date Type Department Care Team (Late st Contact Info) Description 02/19/2022 Procedure Pass [facility], [address] [address] Social History Tobacco Use Types Packs/Day Years [...] documented as of this encounter Care Teams Hospital Product Specialist Relationship Specialty Start Date End Date Sedrick Shea MD [address] [place] [address] [email or web address] PCP - General Internal Medicine 02/06/21 02/12/23 Belen Edwards NP [address] [place] [phone] [email or web address] PCP - General Nurse Practitioner 02/13/23 10/19/24 Rukhsana Melgar NP [address] [place] [address] PCP - General Nurse Practitioner 10/20/24 documented as of this encounter Additional Source Comments The information contained in this document represents components of the legal health record. It is not the complete legal health record.[facility]
--- OUTSIDE RECORDS SUMMARY | 2025-04-20 15:25 | XMS_ITS | Encounter Summary ---
Author Organization [facility] Address [facility] [address] [place] [address] Phone Care Team Providers Care Environmental Services Lead Name Role Phone Sedrick Shea MD Primary Care Provider Belen Edwards DISTRICT COURT ADMINISTRATOR Primary Care Provider Rukhsana Melgar DISTRICT COURT ADMINISTRATOR Primary Care Provider [phone]- [phone] Encounter Details Date Type Department Care Team (Late st Contact Info) Description 09/14/[address] [facility] Cardio EP Device Monitoring [address] [place] [address] Social History Tobacco Use Types Packs/Day Years [...] documented as of this encounter Care Teams Environmental Services Lead Relationship Specialty Start Date End Date Sedrick Shea MD [address] [place] [address] [email or web address] PCP - General Internal Medicine 02/06/21 02/12/23 Belen Edwards NP [address] [place] [phone] [email or web address] PCP - General Nurse Practitioner 02/13/23 10/19/24 Rukhsana Melgar NP [address] [place] [address] PCP - General Nurse Practitioner 10/20/24 documented as of this encounter Additional Source Comments The information contained in this document represents components of the legal health record. It is not the complete legal health record.[facility]
--- OUTSIDE RECORDS SUMMARY | 2025-04-20 15:25 | XMS_ITS | Encounter Summary ---
Author Organization [facility] Address [facility] [address] [place] [address] Phone Care Team Providers Care Letterset Press Set Up Operator Name Role Phone Sedrick Shea MD Primary Care Provider Belen Edwards PIPE LINE REPAIRER Primary Care Provider Rukhsana Melgar PIPE LINE REPAIRER Primary Care Provider [phone]- [phone] Encounter Details Date Type Department Care Team ([facility] Contact Info) Description 01/07/2022 Procedure Pass [facility] Cardio EP Device Monitoring [address] [place] [address] Social History Tobacco Use Types Packs/Day Years [...] documented as of this encounter Care Teams Letterset Press Set Up Operator Relationship Specialty Start Date End Date Sedrick Shea MD [address] [place] [address] [email or web address] PCP - General Internal Medicine 02/06/21 02/12/23 Belen Edwards NP [address] [place] [phone] [email or web address] PCP - General Nurse Practitioner 02/13/23 10/19/24 Rukhsana Melgar NP [address] [place] [address] PCP - General Nurse Practitioner 10/20/24 documented as of this encounter Additional Source Comments The information contained in this document represents components of the legal health record. It is not the complete legal health record.[facility]
--- OUTSIDE RECORDS SUMMARY | 2025-04-20 15:25 | XMS_ITS | Encounter Summary ---
Author Organization [facility] Address [facility] [address] [place] [address] Phone Care Team Providers Care Solutions Sales Executive Name Role Phone Sedrick Shea MD Primary Care Provider [phone] Belen Edwards MAINTENANCE CARPENTER Primary Care Provider Rukhsana Melgar MAINTENANCE CARPENTER Primary Care Provider [phone]- [phone] Encounter Details Date Type Department Care Team (Late st Contact Info) Description 11/13/2022 Procedure Pass [facility] Cardio EP Device Monitoring [address] [place] [address] Social History Tobacco Use Types Packs/Day Years [...] documented as of this encounter Care Teams Solutions Sales Executive Relationship Specialty Start Date End Date Sedrick Shea MD [address] [place] [address] [email or web address] PCP - General Internal Medicine 02/06/21 02/12/23 Belen Edwards NP [address] [place] [phone] [email or web address] PCP - General Nurse Practitioner 02/13/23 10/19/24 Rukhsana Melgar NP [address] [place] [address] PCP - General Nurse Practitioner 10/20/24 documented as of this encounter Additional Source Comments The information contained in this document represents components of the legal health record. It is not the complete legal health record.[facility]
--- OUTSIDE RECORDS SUMMARY | 2025-04-20 15:25 | XMS_ITS | Encounter Summary ---
Author Organization [facility] Address [facility] [address] [place] [address] Phone Care Team Providers Care Scrap Bunch Maker Name Role Phone Sedrick Shea MD Primary Care Provider [phone] Belen Edwards PRODUCTION POTTER Primary Care Provider Rukhsana Melgar PRODUCTION POTTER Primary Care Provider [phone]- [phone] Encounter Details Date Type Department Care Team ([facility] Contact Info) Description 10/30/2021 Procedure Pass [facility] Cardio EP Device Monitoring [address] [place] [address] Social History Tobacco Use Types Packs/Day Years [...] documented as of this encounter Care Teams Scrap Bunch Maker Relationship Specialty Start Date End Date Sedrick Shea MD [address] [place] [address] [email or web address] PCP - General Internal Medicine 02/06/21 02/12/23 Belen Edwards NP [address] [place] [phone] [email or web address] PCP - General Nurse Practitioner 02/13/23 10/19/24 Rukhsana Melgar NP [address] [place] [address] PCP - General Nurse Practitioner 10/20/24 documented as of this encounter Additional Source Comments The information contained in this document represents components of the legal health record. It is not the complete legal health record.[facility]
--- OUTSIDE RECORDS SUMMARY | 2025-04-20 15:25 | XMS_ITS | Encounter Summary ---
Author Organization [facility] Address [facility] [address] [place] [address] Phone Care Team Providers Care Nutrition Manager Name Role Phone Sedrick Shea MD Primary Care Provider [phone] Belen Edwards PAPER GOODS MACHINE OPERATOR Primary Care Provider Rukhsana Melgar PAPER GOODS MACHINE OPERATOR Primary Care Provider +[phone]- [phone] Encounter Details Date Type Department Care Team (Late st Contact Info) Description 12/13/2022 Procedure Pass [facility] Electrophysiology Lab [address] [place], [place] [phone] Social History Tobacco Use Types Packs/Day Years [...] documented as of this encounter Care Teams Nutrition Manager Relationship Specialty Start Date End Date Sedrick Shea MD [address] [place] [address] [email or web address] PCP - General Internal Medicine 02/06/21 02/12/23 Belen Edwards NP [address] [place] [phone] [email or web address] PCP - General Nurse Practitioner 02/13/23 10/19/24 Rukhsana Melgar NP [address] [place] [address] PCP - General Nurse Practitioner 10/20/24 documented as of this encounter Additional Source Comments The information contained in this document represents components of the legal health record. It is not the complete legal health record.[facility]
--- OUTSIDE RECORDS SUMMARY | 2025-04-20 15:25 | XMS_ITS | Encounter Summary ---
Author Organization [facility] Address [facility] [address] [place] [address] Phone Care Team Providers Care Crawler Dragline Operator Name Role Phone Belen Edwards CAR DISPATCHER Primary Care Provider Rukhsana Melgar CAR DISPATCHER Primary Care Provider [phone] Encounter Details Date Type Department Care Team (Late st Contact Info) Description 03/16/2024 Procedure Pass [facility] [address] [place] [address] Social History Tobacco Use Types Packs/Day Years [...] documented as of this encounter Care Teams Crawler Dragline Operator Relationship Specialty Start Date End Date Belen Edwards NP [address] [place] [phone] [email or web address] PCP - General Nurse Practitioner 02/13/23 10/19/24 Rukshana Melgar NP [address] [place] [address] PCP - General Nurse Practitioner 10/20/24 documented as of this encounter Additional Source Comments The information contained in this document represents components of the legal health record. It is not the complete legal health record.[facility]
--- OUTSIDE RECORDS SUMMARY | 2025-04-20 15:25 | XMS_ITS | Encounter Summary ---
Author Organization [facility] Address [facility] [employer] [facility] [address] [place] [address] Phone Care Team Providers Care Quality Assurance Associate Name Role Phone Sedrick Shea MD Primary Care Provider [phone] Belen Edwards LIMO DRIVER Primary Care Provider Rukhsana Melgar LIMO DRIVER Primary Care Provider +[phone]- [phone] Encounter Details Date Type Department Care Team (Late st Contact Info) Description 01/17/2022 Ancillary Orders [facility], -[address] [address] Sedrick Shea MD [address] [place] [address] [phone] [email or web address] Right wrist pain Social History Tobacco Use [...] documented as of this encounter Care Teams Quality Assurance Associate Relationship Specialty Start Date End Date Sedrick Shea MD [address] [address] [email or web address] PCP - General Internal Medicine 02/06/21 02/12/23 Belen Edwards NP [address] [place] [address] [email or web address] PCP - General Nurse Practitioner 02/13/23 10/19/24 Rukhsana Melgar NP [address] [place] [address] PCP - General Nurse Practitioner 10/20/24 documented as of this encounter Additional Source Comments The information contained in this document represents components of the legal health record. It is not the complete legal health record.[facility]
--- OUTSIDE RECORDS SUMMARY | 2025-04-20 15:25 | XMS_ITS | Encounter Summary ---
Author Organization [facility] Address [facility] [employer] [address] [place] [address] Phone Care Team Providers Care Blow Pit Operator Name Role Phone Sedrick Shea MD Primary Care Provider Belen Edwards ANIMAL BEHAVIORIST Primary Care Provider Rukhsana Melgar ANIMAL BEHAVIORIST Primary Care Provider [phone] Encounter Details Date Type Department Care Team ([facility] Contact Info) Description 07/25/2021 Procedure Pass [facility] Cardio EP Device Monitoring [address] [place] [address] Social History Tobacco Use Types Packs/Day Years [...] documented as of this encounter Care Teams Blow Pit Operator Relationship Specialty Start Date End Date Sedrick Shea MD [address] [place] [address] [email or web address] PCP - General Internal Medicine 02/06/21 02/12/23 Belen Edwards NP [address] [place] [phone] [email or web address] PCP - General Nurse Practitioner 02/13/23 10/19/24 Rukhsana Melgar NP [address] [place] [address] PCP - General Nurse Practitioner 10/20/24 documented as of this encounter Additional Source Comments The information contained in this document represents components of the legal health record. It is not the complete legal health record.[facility]
--- OUTSIDE RECORDS SUMMARY | 2025-04-20 15:25 | XMS_ITS | Encounter Summary ---
Author Organization [facility] Address [facility] [address] [place] [address] Phone Care Team Providers Care Political Geographer Name Role Phone Sedrick Shea MD Primary Care Provider Belen Edwards PATTERNMAKER PRESSURE CAST Primary Care Provider Rukhsana Melgar PATTERNMAKER PRESSURE CAST Primary Care Provider [phone] Encounter Details Date Type Department Care Team (Late st Contact Info) Description 10/12/2022 Procedure Pass [facility] Cardio EP Device Monitoring [address] [place] [address] Social History Tobacco Use Types Packs/Day Years [...] documented as of this encounter Care Teams Political Geographer Relationship Specialty Start Date End Date Sedrick Shea MD [address] [place] [address] [email or web address] PCP - General Internal Medicine 02/06/21 02/12/23 Belen Edwards NP [address] [place] [phone] [email or web address] PCP - General Nurse Practitioner 02/13/23 10/19/24 Rukhsana Melgar NP [address] [place] [address] PCP - General Nurse Practitioner 10/20/24 documented as of this encounter Additional Source Comments The information contained in this document represents components of the legal health record. It is not the complete legal health record.[facility]
--- OUTSIDE RECORDS SUMMARY | 2025-04-20 15:25 | XMS_ITS | Encounter Summary ---
Author Organization [facility] Address Critical access hospital [facility] [address] [place] [address] Phone Care Team Providers Care Construction Pit Worker Name Role Phone Sedrick Shea MD Primary Care Provider [phone] Belen Edwards DIVISION OPERATIONS SPECIALIST Primary Care Provider Rukhsana Melgar DIVISION OPERATIONS SPECIALIST Primary Care Provider [phone]- [phone] Encounter Details Date Type Department Care Team (Late st Contact Info) Description 10/01/2022 Prep for Surgery [facility] Orthopedics & Sports Medicine [address] [place] [address] [id number] Luma Gimenez MD [address] [place] [address] Orthopedics & Sports Medicine, [facility]. [place], [place] [id number] Social History Tobacco Use Types Packs/Day Years [...] documented as of this encounter Care Teams Construction Pit Worker Relationship Specialty Start Date End Date Sedrick Shea MD [address] [place] [address] [email or web address] PCP - General Internal Medicine 02/06/21 02/12/23 Belen Edwards NP [address] [place] [phone] [email or web address] PCP - General Nurse Practitioner 02/13/23 10/19/24 Rukhsana Melgar NP [address] [place] [address] PCP - General Nurse Practitioner 10/20/24 documented as of this encounter Additional Source Comments The information contained in this document represents components of the legal health record. It is not the complete legal health record.[facility]
--- OUTSIDE RECORDS SUMMARY | 2025-04-20 15:25 | XMS_ITS | Encounter Summary ---
Author Organization [facility] Address [address] [place] [address] [place] [address] Phone Care Team Providers Care Tractor Operator Helper Name Role Phone Sedrick Shea MD Primary Care Provider Belen Edwards VECTOR CONTROL SPECIALIST Primary Care Provider Rukhsana Melgar VECTOR CONTROL SPECIALIST Primary Care Provider [phone] Encounter Details Date Type Department Care Team (Latest Contact Info) Description 02/19/2022 Transcribe Orders Virtual Department [address] [place] [address] Sedrick Shea MD [address] [place] [address] [email or web address] Breast screening (Primary Dx) Social History Tobacco [...] documented as of this encounter Care Teams Tractor Operator Helper Relationship Specialty Start Date End Date Sedrick Shea MD [address] [place] [address] [email or web address] PCP - General Internal Medicine 02/06/21 02/12/23 Belen Edwards NP [address] [place] [phone] [email or web address] PCP - General Nurse Practitioner 02/13/23 10/19/24 Rukhsana Melgar NP [address] [place] [address] PCP - General Nurse Practitioner 10/20/24 documented as of this encounter Additional Source Comments The information contained in this document represents components of the legal health record. It is not the complete legal health record.[facility]
--- OUTSIDE RECORDS SUMMARY | 2025-04-20 15:26 | XMS_ITS | Encounter Summary ---
Author Organization [facility] Address [address] [place] [address] [place] [address] Phone Care Team Providers Care Vascular Ultrasound Technologist Name Role Phone Sedrick Shea MD Primary Care Provider [phone] Belen Edwards HUMANITIES COORDINATOR Primary Care Provider Rukhsana Melgar HUMANITIES COORDINATOR Primary Care Provider [phone]- [phone] Reason for Referral * MRI/CAT Scan - Closed Specialty Diagnoses / Procedures Referred By Scott nguyen Referred To Contact Radiology Diagnoses Sensorineural hearing loss, unilateral, right ear, with unrestricted hearing on the contralateral side Tinnitus of right ear Dizziness and giddiness Procedures MRI Brain Coral Melendez PA-C Phone: tel: fax: [email or web address] Referral ID Status Reason Start Date Expiration Date Visits Re quested Visits Authorized [id number] Closed 05/03/2022 05/03/2023 1 1 Encounter Details Date Type Department Care Team (Late st Contact Info) Description 05/03/2022 Transcribe Orders Virtual Department 30 [place] [address] Coral Melendez PA-C [address] [place] [address] [email or web address] Sensorineural hearing loss, unilateral, right ear, with unrestricted hearing on the contralateral side (Primary Dx); Tinnitus of right ear; Dizziness and giddiness Social History Tobacco Use Types Packs/Day Years [...] documented as of this encounter Results * MRI BRAIN (INTERNAL AUDITORY CANAL) WITH AND WITHOUT CONTRAST (05/27/2022 4:56 PM EST) Anatomical Region Laterality Modality Head Magnetic Resonan ce 05/27/2022 10:4 5 PM EST Impressions 05/28/2022 10:14 AM EST No intracranial cause for the reported symptoms identified. No IAC or CP angle mass. Narrative 05/28/2022 10:14 AM EST MRI BRAIN (INTERNAL AUDITORY CANAL) WITH AND WITHOUT CONTRAST TECHNIQUE: Multi-sequence, multi-planar MRI of the brain including high resolution images of the temporal bones was performed before and after intravenous contrast. COMPARISON: None FINDINGS: Internal Auditory Canals, Cerebellopontine Angles, and Intracranial 7th and 8th Nerve Complexes: Normal. No cerebellopontine angle or internal auditory canal mass. Inner Ear Structures: Normal. Preserved signal in the labyrinth. No MRI evidence for an inner ear anomaly. Brain Parenchyma: There is mild scattered T2/FLAIR hyperintensity in the periventricular and deep white matter which is nonspecific and can be seen in the setting of chronic small vessel disease. No evidence of acute infarct, mass lesion, or hemorrhage. Ventricular System and Extra-Axial Spaces: Normal. No evidence of midline shift or hydrocephalus. Miscellaneous: None. Procedure Note Elpidio Campbell MD - 05/28/2022 MRI BRAIN (INTERNAL AUDITORY CANAL) WITH AND WITHOUT CONTRAST TECHNIQUE: Multi-sequence, multi-planar MRI of the brain including highresolution images of the temporal bones was performed before and afterintravenous contrast. COMPARISON: None FINDINGS: Internal Auditory Canals, Cerebellopontine Angles, and Intracranial 7thand 8th Nerve Complexes: Normal. No cerebellopontine angle or internalauditory canal mass. Inner Ear Structures: Normal. Preserved signal in the labyrinth. No MRIevidence for an inner ear anomaly. Brain Parenchyma: There is mild scattered T2/FLAIR hyperintensity in theperiventricular and deep white matter which is nonspecific and can be seenin the setting of chronic small vessel disease. No evidence of acuteinfarct, mass lesion, or hemorrhage. Ventricular System and Extra-Axial Spaces: Normal. No evidence of midlineshift or hydrocephalus. Miscellaneous: None. IMPRESSION: No intracranial cause for the reported symptoms identified. No IAC or CPangle mass. Coral Melendez PA-C IMG MR HEAD/NECK Final R esult documented in this encounter Visit Diagnoses Diagnosis Sensorineural hearing loss, unilateral, right ear, with unrestricted hearing on the contralateral side- Primary Tinnitus of right ear Dizziness and giddiness Sensorineural hearing loss, unilateral, right ear, with unrestricted hearing on the contralateral side Tinnitus of right ear Dizziness and giddiness documented in this encounter Additional Health Concerns Assessment Noted Time PHQ-2 Depression Total Score: 2 08/25/19 21 8:59 AM EDT documented as of this encounter Care Teams Vascular Ultrasound Technologist Relationship Specialty Start Date End Date Sedrick Shea MD [address] [place] [address] [email or web address] PCP - General Internal Medicine 02/06/21 02/12/23 Belen Edwards NP [address] [place] [phone] [email or web address] PCP - General Nurse Practitioner 02/13/23 10/19/24 Rukhsana Melgar NP [address] [place] [address] PCP - General Nurse Practitioner 10/20/24 documented as of this encounter Additional Source Comments The information contained in this document represents components of the legal health record. It is not the complete legal health record.[facility]
--- OUTSIDE RECORDS SUMMARY | 2025-04-20 15:26 | XMS_ITS | Encounter Summary ---
Author Organization [facility] Address [address] [place] [address] Phone Care Team Providers Care Apartment Maintenance Manager Name Role Phone Sedrick Shea MD Primary Care Provider [phone] Belen Edwards SENIOR QUALITY CONTROL INSPECTOR Primary Care Provider Rukhsana Melgar SENIOR QUALITY CONTROL INSPECTOR Primary Care Provider [phone]- [phone] Encounter Details Date Type Department Care Team ([facility] Contact Info) Description 02/07/2022 Procedure Pass [facility] Cardio EP Device Monitoring [address] [place] [address] Social History Tobacco Use Types Packs/Day Years [...] documented as of this encounter Care Teams Apartment Maintenance Manager Relationship Specialty Start Date End Date Sedrick Shea MD [address] [place] [address] [email or web address] PCP - General Internal Medicine 02/06/21 02/12/23 Belen Edwards NP [address] [place] [phone] [email or web address] PCP - General Nurse Practitioner 02/13/23 10/19/24 Rukhsana Melgar NP [address] [place] [address] PCP - General Nurse Practitioner 10/20/24 documented as of this encounter Additional Source Comments The information contained in this document represents components of the legal health record. It is not the complete legal health record.[facility]
--- OUTSIDE RECORDS SUMMARY | 2025-04-20 15:26 | XMS_ITS | Encounter Summary ---
Author Organization [facility] Address [facility] [address] [place] [address] Phone Care Team Providers Care Slat Basket Maker Machine Name Role Phone Sedrick Shea MD Primary Care Provider [phone] Belen Edwards DIP FILLER Primary Care Provider Rukhsana Melgar DIP FILLER Primary Care Provider [phone] Encounter Details Date Type Department Care Team (Late st Contact Info) Description 12/16/2022 Procedure Pass [facility] Cardio EP Device Monitoring [address] [place] [address] Social History Tobacco Use Types Packs/Day Years [...] documented as of this encounter Care Teams Slat Basket Maker Machine Relationship Specialty Start Date End Date Sedrick Shea MD [address] [place] [address] [email or web address] PCP - General Internal Medicine 02/06/21 02/12/23 Belen Edwards NP [address] [place] [phone] [email or web address] PCP - General Nurse Practitioner 02/13/23 10/19/24 Rukhsana Melgar NP [address] [place] [address] PCP - General Nurse Practitioner 10/20/24 documented as of this encounter Additional Source Comments The information contained in this document represents components of the legal health record. It is not the complete legal health record.[facility]
--- OUTSIDE RECORDS SUMMARY | 2025-04-20 15:26 | XMS_ITS | Encounter Summary ---
Author Organization [facility] Address [address] [place] [address] [place] [address] Phone Care Team Providers Care Senior Major Gifts Officer Name Role Phone Sedrick Shea MD Primary Care Provider Belen Edwards WAREHOUSE ORDER SELECTOR Primary Care Provider Rukhsana Melgar WAREHOUSE ORDER SELECTOR Primary Care Provider [phone] Encounter Details Date Type Department Care Team (Latest Contact Info) Description 06/19/2022 Transcribe Orders [facility] Cardiovascular Clinic [address] [place] [address] Fiorella Vallecillo [address] [place] [address] [email or web address] Implantable loop recorder present (Primary Dx) Social [...] as of this encounter Care Teams Senior Major Gifts Officer Relationship Specialty Start Date End Date Sedrick Shea MD [address] [place] [address] [email or web address] PCP - General Internal Medicine 02/06/21 02/12/23 Belen Edwards NP [address] [place] [phone] [email or web address] PCP - General Nurse Practitioner 02/13/23 10/19/24 Rukhsana Melgar NP [address] [place] [address] PCP - General Nurse Practitioner 10/20/24 documented as of this encounter Additional Source Comments The information contained in this document represents components of the legal health record. It is not the complete legal health record.[facility]
--- OUTSIDE RECORDS SUMMARY | 2025-04-20 15:26 | XMS_ITS | Encounter Summary ---
Author Organization [facility] Address [facility] [address] [place] [address] Phone Care Team Providers Care Health Care Sanitary Technician Name Role Phone Sedrick Shea MD Primary Care Provider [phone] Belen Edwards VP PRODUCTION Primary Care Provider Rukhsana Melgar VP PRODUCTION Primary Care Provider [phone] Encounter Details Date Type Department Care Team ([facility] Contact Info) Description 07/12/2021 Procedure Pass [facility] Cardio EP Device Monitoring [address] [place] [address] Social History Tobacco Use Types Packs/Day Years [...] documented as of this encounter Care Teams Health Care Sanitary Technician Relationship Specialty Start Date End Date Sedrick Shea MD [address] [place] [address] [email or web address] PCP - General Internal Medicine 02/06/21 02/12/23 Belen Edwards NP [address] [place] [phone] [email or web address] PCP - General Nurse Practitioner 02/13/23 10/19/24 Rukhsana Melgar NP [address] [place] [address] PCP - General Nurse Practitioner 10/20/24 documented as of this encounter Additional Source Comments The information contained in this document represents components of the legal health record. It is not the complete legal health record.[facility]
--- OUTSIDE RECORDS SUMMARY | 2025-04-20 15:26 | XMS_ITS | Encounter Summary ---
Author Organization [facility] Address [facility] [address] [place] [address] Phone Care Team Providers Care Lodging Manager Name Role Phone ResendezMarnie dodson Yazmin [place]FIELD Primary Care Provider [phone] Sedrick Shea MD Primary Care Provider [phone] Belen Edwards SUB ACUTE CARE NURSE Primary Care Provider Rukhsana Melgar SUB ACUTE CARE NURSE Primary Care Provider [phone]- [phone] Encounter Details Date Type Department Care Team (Latest Contact Info) Description 10/02/2020 Ancillary Orders [facility] [address] [place] [address] Aditi Lucas PA-C [address] [facility] [address] [place] [address] [email or web address] Allergic reaction to contrast material, subsequent [...] 6:00 PM EDT Krupa Begum RN * [place] Suicide Severity Rating Scale (Screener/Recent Self-Report) Question [...] documented as of this encounter Care Teams Lodging Manager Relationship Specialty Start Date End Date Marnie Resendez DO [address] [place] [address] ([address]) [place] [address] PCP - General 04/08/20 02/05/21 Sedrick Shea MD [address] [place] [address] [email or web address] PCP - General Internal Medicine 02/06/21 02/12/23 Belen Edwards NP [address] [place] [phone] [email or web address] PCP - General Nurse Practitioner 02/13/23 10/19/24 Rukhsana Melgar NP [address] [place] [address] PCP - General Nurse Practitioner 10/20/24 documented as of this encounter Additional Source Comments The information contained in this document represents components of the legal health record. It is not the complete legal health record.[facility]
--- OUTSIDE RECORDS SUMMARY | 2025-04-20 15:26 | XMS_ITS | Encounter Summary ---
Author Organization [facility] Address [facility] [employer] [facility] [address] [place] [address] Phone Care Team Providers Care Cash Applications Clerk Name Role Phone Belen Edwards METAL OR WOOD BLOCKER Primary Care Provider Rukhsana Melgar METAL OR WOOD BLOCKER Primary Care Provider [phone] Encounter Details Date Type Department Care Team (Late st Contact Info) Description 04/23/2023 Procedure Pass [facility]oscopy Admitting Dept Virtual Department [address] [place] [address] Social History Tobacco Use Types Packs/Day Years [...] documented as of this encounter Care Teams Cash Applications Clerk Relationship Specialty Start Date End Date Belen Edwards NP [address] [place] [phone] [email or web address] PCP - General Nurse Practitioner 02/13/23 10/19/24 Rukhsana Melgar NP [address] [place] [address] PCP - General Nurse Practitioner 10/20/24 documented as of this encounter Additional Source Comments The information contained in this document represents components of the legal health record. It is not the complete legal health record.[facility]
--- OUTSIDE RECORDS SUMMARY | 2025-04-20 15:26 | XMS_ITS | Encounter Summary ---
Author Organization [facility] Address [facility] [address] [place] [address] Phone Care Team Providers Care Production Analyst Name Role Phone DiptiMarnie Yazmin MAYFIELD Primary Care Provider [phone] Sedrick Shea MD Primary Care Provider [phone] Belen Edwards FINISHER SPECIAL STOCKS Primary Care Provider Rukhsana Melgar FINISHER SPECIAL STOCKS Primary Care Provider [phone]- [phone] Encounter Details Date Type Department Care Team (Late st Contact Info) Description 10/02/2020 Procedure Pass [facility] [address] [place] [address] Social History Tobacco Use Types Packs/Day Years [...] 6:00 PM EDT Krupa Begum RN * [place] Suicide Severity Rating Scale (Screener/Recent Self-Report) Question [...] documented as of this encounter Care Teams Production Analyst Relationship Specialty Start Date End Date Marnie Resendez DO [address] [place] [address] ([address]) [place] [address] PCP - General 04/08/20 02/05/21 Sedrick Shea MD [address] [place] [address] [email or web address] PCP - General Internal Medicine 02/06/21 02/12/23 Belen Edwards NP [address] [place] [phone] [email or web address] PCP - General Nurse Practitioner 02/13/23 10/19/24 Rukhsana Melgar NP [address] [place] [address] PCP - General Nurse Practitioner 10/20/24 documented as of this encounter Additional Source Comments The information contained in this document represents components of the legal health record. It is not the complete legal health record.[facility]
--- OUTSIDE RECORDS SUMMARY | 2025-04-20 15:26 | XMS_ITS | Encounter Summary ---
Author Organization [facility] Address [facility] [employer] [facility] [address] [place] [address] Phone Care Team Providers Care Sheet Metal Layout Worker Name Role Phone Sedrick Shea MD Primary Care Provider Belen Edwards DIESEL POWERPLANT SUPERVISOR Primary Care Provider Rukhsana Melgar DIESEL POWERPLANT SUPERVISOR Primary Care Provider [phone] Encounter Details Date Type Department Care Team (Late st Contact Info) Description 05/03/2022 Procedure Pass [facility], [address] [address] Social History Tobacco Use Types Packs/Day Years [...] documented as of this encounter Care Teams Sheet Metal Layout Worker Relationship Specialty Start Date End Date Sedrick Shea MD [address] [place] [address] [email or web address] PCP - General Internal Medicine 02/06/21 02/12/23 Belen Edwards NP [address] [place] [phone] [email or web address] PCP - General Nurse Practitioner 02/13/23 10/19/24 Rukhsana Melgar NP [address] [place] [address] PCP - General Nurse Practitioner 10/20/24 documented as of this encounter Additional Source Comments The information contained in this document represents components of the legal health record. It is not the complete legal health record.[facility]
--- OUTSIDE RECORDS SUMMARY | 2025-04-20 15:26 | XMS_ITS | Encounter Summary ---
Author Organization [facility] Address [facility] [employer] [facility] [address] [place] [address] Phone Care Team Providers Care General Road Foreman Name Role Phone Sedrick Shea MD Primary Care Provider Belen Edwards INSTRUCTIONAL DESIGN CONSULTANT Primary Care Provider Rukhsana Melgar INSTRUCTIONAL DESIGN CONSULTANT Primary Care Provider [phone] Encounter Details Date Type Department Care Team (Late st Contact Info) Description 10/02/2022 Procedure Pass [place] Admitting Dept - Virtual Department [address] [place] [address] Social History Tobacco Use Types Packs/Day Years [...] documented as of this encounter Care Teams General Road Foreman Relationship Specialty Start Date End Date Sedrick Shea MD [address] [place] [address] [email or web address] PCP - General Internal Medicine 02/06/21 02/12/23 Belen Edwards NP [address] [place] [phone] [email or web address] PCP - General Nurse Practitioner 02/13/23 10/19/24 Rukhsana Melgar NP [address] [place] [address] PCP - General Nurse Practitioner 10/20/24 documented as of this encounter Additional Source Comments The information contained in this document represents components of the legal health record. It is not the complete legal health record.[facility]
--- OUTSIDE RECORDS SUMMARY | 2025-04-20 15:26 | XMS_ITS | Encounter Summary ---
Author Organization [facility] Address [facility] [address] [place] [address] Phone Care Team Providers Care Trimming Machine Operator Name Role Phone Sedrick Shea MD Primary Care Provider [phone] Belen Edwards TECHNICAL AGRONOMIST Primary Care Provider Rukhsana Melgar TECHNICAL AGRONOMIST Primary Care Provider [phone] Encounter Details Date Type Department Care Team (Late st Contact Info) Description 05/27/2022 Procedure Pass [facility] Cardio Device Monitoring - [address] [address] Social History Tobacco Use Types Packs/Day Years [...] documented as of this encounter Care Teams Trimming Machine Operator Relationship Specialty Start Date End Date Sedrick Shea MD [address] [place] [address] [email or web address] PCP - General Internal Medicine 02/06/21 02/12/23 Belen Edwards NP [address] [place] [phone] [email or web address] PCP - General Nurse Practitioner 02/13/23 10/19/24 Rukhsana Melgar NP [address] [place] [address] PCP - General Nurse Practitioner 10/20/24 documented as of this encounter Additional Source Comments The information contained in this document represents components of the legal health record. It is not the complete legal health record.[facility]
--- OUTSIDE RECORDS SUMMARY | 2025-04-20 15:26 | XMS_ITS | Encounter Summary ---
Author Organization [facility] Address [facility] [address] [place] [address] Phone Care Team Providers Care Director Adult Name Role Phone Sedrick Shea MD Primary Care Provider Belen Edwards MONTESSORI PRESCHOOL TEACHER Primary Care Provider Rukhsana Melgar MONTESSORI PRESCHOOL TEACHER Primary Care Provider [phone]- [phone] Encounter Details Date Type Department Care Team ([facility] Contact Info) Description 06/19/2022 Procedure Pass [facility] Cardio EP Device Monitoring [address] [place] [address] Social History Tobacco Use Types Packs/Day Years [...] documented as of this encounter Care Teams Director Adult Relationship Specialty Start Date End Date Sedrick Shea MD [address] [place] [address] [email or web address] PCP - General Internal Medicine 02/06/21 02/12/23 Belen Edwards NP [address] [place] [phone] [email or web address] PCP - General Nurse Practitioner 02/13/23 10/19/24 Rukhsana Melgar NP [address] [place] [address] PCP - General Nurse Practitioner 10/20/24 documented as of this encounter Additional Source Comments The information contained in this document represents components of the legal health record. It is not the complete legal health record.[facility]
--- OUTSIDE RECORDS SUMMARY | 2025-04-20 15:26 | XMS_ITS | Encounter Summary ---
Author Organization [facility] Address [facility] [address] [place] [address] Phone Care Team Providers Care Imaging Tech Name Role Phone Dipti Marnie Arce DO Primary Care Provider [phone] Sedrick Shea MD Primary Care Provider [phone] Belen Edwards MULTIFOCAL BUTTON INSPECTOR Primary Care Provider Rukhsana Melgar MULTIFOCAL BUTTON INSPECTOR Primary Care Provider +[phone]- [phone] Encounter Details Date Type Department Care Team (Late st Contact Info) Description 09/14/2020 Transcribe Orders [facility] [address] [place] [address] [email or web address] Social History Tobacco Use Types [...] documented as of this encounter Care Teams Imaging Tech Relationship Specialty Start Date End Date Marnie Resendez DO [address] [place] [address] ([address]) [place] [address] PCP - General 04/08/20 02/05/21 Sedrick Shea MD [address] [place] [address] [email or web address] PCP - General Internal Medicine 02/06/21 02/12/23 Belen Edwards NP [address] [place] [phone] [email or web address] PCP - General Nurse Practitioner 02/13/23 10/19/24 Rukhsana Melgar NP [address] [place] [address] PCP - General Nurse Practitioner 10/20/24 documented as of this encounter Additional Source Comments The information contained in this document represents components of the legal health record. It is not the complete legal health record.[facility]
--- OUTSIDE RECORDS SUMMARY | 2025-04-20 15:26 | XMS_ITS | Encounter Summary ---
Author Organization [facility] Address [address] [place] [address] Phone Care Team Providers Care Straight Knife Machine Cutter Name Role Phone Rukhsana Melgar MANAGEMENT ACCOUNTS MANAGER Primary Care Provider [phone]- [phone] Encounter Details Date Type Department Care Team (Late st Contact Info) Description 12/21/2024 Procedure Pass [facility], Ct Scan - [facility] [address] [place] [address] Social History Tobacco Use Types Packs/Day Years [...] documented as of this encounter Care Teams Straight Knife Machine Cutter Relationship Specialty Start Date End Date Rukhsana Melgar NP [address] [place] [address] PCP - General Nurse Practitioner 10/20/24 documented as of this encounter Additional Source Comments The information contained in this document represents components of the legal health record. It is not the complete legal health record.[facility]
--- OUTSIDE RECORDS SUMMARY | 2025-04-20 15:26 | XMS_ITS | Encounter Summary ---
Author Organization [facility] Address [facility] [address] [place] [address] Phone Care Team Providers Care Watchmaking Teacher Name Role Phone Sedrick Shea MD Primary Care Provider [phone] Belen Edwards SEATER ASSEMBLER Primary Care Provider Rukhsana Melgar SEATER ASSEMBLER Primary Care Provider [phone]- [phone] Encounter Details Date Type Department Care Team ([facility] Contact Info) Description 07/06/2022 Procedure Pass [facility] Cardio EP Device Monitoring [address] [place] [address] Social History Tobacco Use Types Packs/Day Years [...] documented as of this encounter Care Teams Watchmaking Teacher Relationship Specialty Start Date End Date Sedrick Shea MD [address] [place] [address] [email or web address] PCP - General Internal Medicine 02/06/21 02/12/23 Belen Edwards NP [address] [place] [phone] [email or web address] PCP - General Nurse Practitioner 02/13/23 10/19/24 Rukhsana Melgar NP [address] [place] [address] PCP - General Nurse Practitioner 10/20/24 documented as of this encounter Additional Source Comments The information contained in this document represents components of the legal health record. It is not the complete legal health record.[facility]
--- OUTSIDE RECORDS SUMMARY | 2025-04-20 15:26 | XMS_ITS | Encounter Summary ---
Author Organization [facility] Address [facility] [address] [place] [address] Phone Care Team Providers Care Dross Puller Name Role Phone Sedrick Shea MD Primary Care Provider Belen Edwards CLAMPER Primary Care Provider Rukhsana Melgar CLAMPER Primary Care Provider [phone] Encounter Details Date Type Department Care Team (Late st Contact Info) Description 01/24/2023 Procedure Pass [facility] Cardio EP Device Monitoring [address] [place] [address] Social History Tobacco Use Types Packs/Day Years [...] documented as of this encounter Care Teams Dross Puller Relationship Specialty Start Date End Date Sedrick Shea MD [address] [place] [address] [email or web address] PCP - General Internal Medicine 02/06/21 02/12/23 Belen Edwards NP [address] [place] [phone] [email or web address] PCP - General Nurse Practitioner 02/13/23 10/19/24 Rukhsana Melgar NP [address] [place] [address] PCP - General Nurse Practitioner 10/20/24 documented as of this encounter Additional Source Comments The information contained in this document represents components of the legal health record. It is not the complete legal health record.[facility]
--- OUTSIDE RECORDS SUMMARY | 2025-04-20 15:26 | XMS_ITS | Encounter Summary ---
Author Organization [facility] Address [facility] [address] [place] [address] Phone Care Team Providers Care Home Care Manager Rn Name Role Phone Sedrick Shea MD Primary Care Provider Belen Edwards SOFTWARE QUALITY TESTER Primary Care Provider Rukhsana Melgar SOFTWARE QUALITY TESTER Primary Care Provider [phone] Encounter Details Date Type Department Care Team ([facility] Contact Info) Description 06/19/2022 Procedure Pass [facility] Cardio EP Device Monitoring [address] [place] [address] Social History Tobacco Use Types Packs/Day Years [...] documented as of this encounter Care Teams Home Care Manager Rn Relationship Specialty Start Date End Date Sedrick Shea MD [address] [place] [address] [email or web address] PCP - General Internal Medicine 02/06/21 02/12/23 Belen Edwards NP [address] [place] [phone] [email or web address] PCP - General Nurse Practitioner 02/13/23 10/19/24 Rukhsana Melgar NP [address] [place] [address] PCP - General Nurse Practitioner 10/20/24 documented as of this encounter Additional Source Comments The information contained in this document represents components of the legal health record. It is not the complete legal health record.[facility]
--- OUTSIDE RECORDS SUMMARY | 2025-04-20 15:26 | XMS_ITS | Encounter Summary ---
Author Organization [facility] Address [address] [place] [address] [place] [address] Phone Care Team Providers Care Console Operator Name Role Phone Dipti Marnie Arce DO Primary Care Provider [phone] Sedrick Shea MD Primary Care Provider [phone] Belen Edwards [employer]IV[employer]ITY INTERNSHIP Primary Care Provider Rukhsana Melgar [employer] Primary Care Provider [phone]- [phone] Reason for Referral * MRI/CAT Scan - Closed Specialty Diagnoses / Procedures Referred By Scott nguyen Referred To Contact Radiology Diagnoses Allergic reaction to contrast material, subsequent encounter Paroxysmal atrial fibrillation Procedures CT 3D Re[address] CT Angio Chest Jamie Fernandez MD Phone: tel: fax: [email or web address] Referral ID Status Reason Start Date Expiration Date Visits Re quested Visits Authorized Closed 10/02/2020 10/02/2021 1 1 Encounter Details Date Type Department Care Team (Latest Contact Info) Description 10/02/2020 Ancillary Orders [facility] Radiology [facility] [place] [address] Jamie Fernandez MD [address] [place] [phone] [email or web address] Allergic reaction to contrast material, subsequent encounter; [...] 6:00 PM EDT Krupa Begum RN * [place] Suicide Severity Rating Scale (Screener/Recent Self-Report) Question [...] documented as of this encounter Care Teams Console Operator Relationship Specialty Start Date End Date Marnie Resendez DO [address] [place] [address] ([address]) [place] [address] PCP - General 04/08/20 02/05/21 Sedrick Shea MD [address] [place] [address] [email or web address] PCP - General Internal Medicine 02/06/21 02/12/23 Belen Edwards NP [address] [place] [phone] [email or web address] PCP - General Nurse Practitioner 02/13/23 10/19/24 Rukhsana Melgar NP [address] [place] [address] PCP - General Nurse Practitioner 10/20/24 documented as of this encounter Additional Source Comments The information contained in this document represents components of the legal health record. It is not the complete legal health record.[facility]
--- OUTSIDE RECORDS SUMMARY | 2025-04-20 15:26 | XMS_ITS | Encounter Summary ---
Author Organization [facility] Address [facility] [address] [place] [address] Phone Care Team Providers Care Stitcher Utility Name Role Phone DiptiMarnie Yazmin [place] Primary Care Provider [phone] Sedrick Shea MD Primary Care Provider [phone] Belen Edwards BRICK HANDLER Primary Care Provider Rukhsana Melgar BRICK HANDLER Primary Care Provider [phone]- [phone] Encounter Details Date Type Department Care Team (Latest Contact Info) Description 01/08/2021 Transcribe Orders Virtual Department [address] [place] [address] Sedrick Shea MD [address] [place] [address] [phone] [email or web address] Osteoporosis, unspecified osteoporosis type, unspecified pathological fracture [...] bone mineral density was calculated at 0.523 gm/ta3dpjo a T- score of -2.9 falling within [...] documented as of this encounter Care Teams Stitcher Utility Relationship Specialty Start Date End Date Marnie Resendez DO [address] [place] [address] ([address]) [place] [address] PCP - General 04/08/20 02/05/21 Sedrick Shea MD [address] [place] [address] [email or web address] PCP - General Internal Medicine 02/06/21 02/12/23 Belen Edwards NP [address] [place] [phone] [email or web address] PCP - General Nurse Practitioner 02/13/23 10/19/24 Rukhsana Melgar NP [address] [place] [address] PCP - General Nurse Practitioner 10/20/24 documented as of this encounter Additional Source Comments The information contained in this document represents components of the legal health record. It is not the complete legal health record.[facility]
--- OUTSIDE RECORDS SUMMARY | 2025-04-20 15:26 | XMS_ITS | Encounter Summary ---
Author Organization [facility] Address [facility] [address] [place] [address] Phone Care Team Providers Care Barmaid Name Role Phone Sedrick Shea MD Primary Care Provider Belen Edwards WIND ENERGY TECHNICIAN Primary Care Provider Rukhsana Melgar WIND ENERGY TECHNICIAN Primary Care Provider [phone]- [phone] Encounter Details Date Type Department Care Team ([facility] Contact Info) Description 07/25/2021 Procedure Pass [facility] Cardio EP Device Monitoring [address] [place] [address] Social History Tobacco Use Types Packs/Day Years [...] documented as of this encounter Care Teams Barmaid Relationship Specialty Start Date End Date Sedrick Shea MD [address] [place] [address] [email or web address] PCP - General Internal Medicine 02/06/21 02/12/23 Belen Edwards NP [address] [place] [phone] [email or web address] PCP - General Nurse Practitioner 02/13/23 10/19/24 Rukhsana Melgar NP [address] [place] [address] PCP - General Nurse Practitioner 10/20/24 documented as of this encounter Additional Source Comments The information contained in this document represents components of the legal health record. It is not the complete legal health record.[facility]
--- OUTSIDE RECORDS SUMMARY | 2025-04-20 15:26 | XMS_ITS | Encounter Summary ---
Author Organization [facility] Address [facility] [address] [place] [address] Phone Care Team Providers Care Flatwork Finisher Name Role Phone Sedrick Shea MD Primary Care Provider Belen Edwards OFFSHORE WIND TURBINE TECHNICIAN Primary Care Provider Rukhsana Melgar OFFSHORE WIND TURBINE TECHNICIAN Primary Care Provider [phone]- [phone] Encounter Details Date Type Department Care Team ([facility] Contact Info) Description 06/12/[address] [facility] Cardio EP Device Monitoring [address] [place] [address] Social History Tobacco Use Types Packs/Day Years [...] documented as of this encounter Care Teams Flatwork Finisher Relationship Specialty Start Date End Date Sedrick Shea MD [address] [place] [address] [email or web address] PCP - General Internal Medicine 02/06/21 02/12/23 Belen Edwards NP [address] [place] [phone] [email or web address] PCP - General Nurse Practitioner 02/13/23 10/19/24 Rukhsana Melgar NP [address] [place] [address] PCP - General Nurse Practitioner 10/20/24 documented as of this encounter Additional Source Comments The information contained in this document represents components of the legal health record. It is not the complete legal health record.[facility]
--- OUTSIDE RECORDS SUMMARY | 2025-04-20 15:26 | XMS_ITS | Encounter Summary ---
Author Organization [facility] Address [address] [place] [address] [place] [address] Phone Care Team Providers Care Plate Gauger Name Role Phone Rukhsana Melgra NP Primary Care Provider [phone] Reason for Referral * MRI/CAT Scan - Closed Specialty Diagnoses / Procedures Referred By Scott nguyen Referred To Contact Radiology Diagnoses Abnormal findings on diagnostic imaging of other specified body structures Procedures CT Chest Rukhsana Melgar NP [address] [place] [address] Phone: tel: fax: Referral ID Status Reason Start Date Expiration Date Visits Re quested Visits Authorized [id number] Closed 12/21/2024 12/21/2025 1 1 Encounter Details Date Type Department Care Team (Late st Contact Info) Description 12/21/2024 Transcribe Orders Virtual Department 30 [place] [address] Rukhsana Melgar NP [address] [place], [place] [phone] Abnormal findings on diagnostic imaging of other [...] MGB IMG RECOMMENDATION COMMENT chest reticular opacities [facility] Anatomical Region Laterality Modality Chest [...] clinician's provided indication for this examination in [facility]: Outside Radiology Order; abnormal imaging [...] clinician's provided indication for this examination in [facility]:Outside Radiology Order; abnormal imaging TECHNIQUE: [...] and 6-12 months for reticularopacities. Rukhsana Melgar ADMINISTRATIVE TECH IMG CT CHEST Final Resu lt documented in this encounter Visit Diagnoses Diagnosis Abnormal findings on diagnostic imaging of other specified body structures- Primary Abnormal findings on diagnostic imaging of other specified body structures documented in this encounter Additional Health Concerns Assessment Noted Time PHQ-2 Depression Total Score: 2 08/25/19 21 8:59 AM EDT documented as of this encounter Care Teams Plate Gauger Relationship Specialty Start Date End Date Rukhsana Melgar NP [address] [place] [address] PCP - General Nurse Practitioner 10/20/24 documented as of this encounter Additional Source Comments The information contained in this document represents components of the legal health record. It is not the complete legal health record.[facility]
--- OUTSIDE RECORDS SUMMARY | 2025-04-20 15:26 | XMS_ITS | Encounter Summary ---
Author Organization [facility] Address [facility] [address] [place] [address] Phone Care Team Providers Care Dog Obedience Instructor Name Role Phone Marnei Resendez DO Primary Care Provider [phone] Sedrick Shea MD Primary Care Provider Belen Edwards MARIONETTE PERFORMER Primary Care Provider Rukhsana Melgar MARIONETTE PERFORMER Primary Care Provider +1- [phone] Encounter Details Date Type Department Care Team (Late st Contact Info) Description 09/14/2020 Procedure Pass [facility] [address] [place] [address] Social History Tobacco Use Types Packs/Day Years [...] documented as of this encounter Care Teams Dog Obedience Instructor Relationship Specialty Start Date End Date Marnie Resendez DO [address] [place] [address] ([address]) [place] [address] PCP - General 04/08/20 02/05/21 Sedrick Shea MD [address] [place] [address] [email or web address] PCP - General Internal Medicine 02/06/21 02/12/23 Belen Edwards NP [address] [place] [phone] [email or web address] PCP - General Nurse Practitioner 02/13/23 10/19/24 Rukhsana Meglar NP [address] [place] [address] PCP - General Nurse Practitioner 10/20/24 documented as of this encounter Additional Source Comments The information contained in this document represents components of the legal health record. It is not the complete legal health record.[facility]
--- OUTSIDE RECORDS SUMMARY | 2025-04-20 15:26 | XMS_ITS | Clinical Summary ---
Author Organization [facility] Address [address] [place] [address] [place] [address] Phone Care Team Providers Care Hole Digger Name Role Phone Rukhsana Melgar NP Primary Care Provider +1- [phone] Allergies Active Allergy Reactions Criticality Noted Date [...] puff into the lungs as needed. 09/14/19 Active ondansetron (ZOFRAN-ODT) 4 MG disintegrating tablet [...] Atrial fibrillation 10/03/2020 Right carpal tunnel syndrome Family History Medical History Relation Comments Breast [...] Last Done Comments Adult Td,Tdap Booster 1955 COLOGUARD 1999 FIT TEST 1999 FOBT 1999 SIGMOIDOSCOPY 1999 VIRTUAL COLONOSCOPY 1999 PNEUMOCOCCAL VACCINES (50+ years) (1 of 1 - PCV) 2004 ZOSTER VACCINES (2 of 2) 05/30/2019 04/04/2019 DEPRESSION SCREENING 08/24/2021 08/24/2020 MAMMOGRAM 03/08/2024 03/08/2022, 10/0 09/2020, 01/27/2020, Additional history exists INFLUENZA VACCINE [...] this topic Medical Devices Implanted Type Area Integration Project Manager Device Identifier Shelf Expiration Date Model / Serial / Lot Medtronic In Lnq11 Reveal Linq [id number] Implanted: (Quantity not on file) Implantable Monitor [employer] LNQ11 REVEAL LINQ / [id number] / Procedures Procedure Name Priority Date/Time Associated Diagnosis Comments BASIC METABOLIC PANEL (BMP) STAT 07/01/2024 10:14 [...] Recently Relevant to Health Maintenance Results * (ABNORMAL) Basic metabolic panel (07/01/2024 10:14 PM EST) SODIUM 136 133 - 146 mmol/L [facility] CHLORIDE 98 96 - 108 mmol/L [facility] POTASSIUM 4.5 3.3 - 5.1 mmol/L [facility] CO2 30 21 - 35 mmol/L [facility] BUN 17 6 - 19 mg/dL [facility] CREATININE 0.70 0.5 - 1.5 mg/dL [facility] GLUCOSE 106(H) 70 - 99 mg/dL [facility] CALCIUM 9.4 8.4 - 10.3 mg/dL [facility] EGFR 93 >59 mL/min/1.7 3m2 [facility] Comment:Estimated glomerular filtration rate calculated using the CKD-EPI refit equation. ANION GAP 13 10 - 20 mmol/L [facility] Blood 07/01/2024 10:1 4 PM EST 07/01/2024 10:19 PM EST us Savanna Cheema MD LAB BLOOD BKR ORDERABLES Final Result [facility] [address] [place] [address] * (ABNORMAL) Lipid panel (04/13/2024 8:57 AM EST) HDL 89 mg/dL [facility] Comment: Interpretation <40 mg/dL: Low HDL cholesterol (major risk factor for CHD) Greater than or equal to 60 mg/dL: High HDL cholesterol ( negative risk factor for CHD) HDL - cholesterol is affected by a number of factors, e.g. smoking, excerise, hormones, sex and age. CHOLESTEROL 170 0 - 240 mg/dL [facility] TRIGLYCERIDES 84 30 - 160 mg/dL [facility] LDL 64 50 - 129 mg/dL [facility] Comment: LDL levels in terms of risk for coronary heart disease: <100 mg/dL: Optimal 100-129 mg/dL: Near or above optimal 130-159 mg/dL: Borderline high 160-189 mg/dL: High >190 mg/dL: Very High CARDIAC RISK RATIO 1.9(L) 3.3 - 4.4 [facility] Blood 04/13/2024 8:57 AM EST 04/13/2024 8:59 AM EST us Fredy Torres MD LAB BLOOD BKR ORDERABLES Final Result [address] [address] * ENDOSCOPY, COLON (08/21/2023 7:16 AM EDT) Narrative Transcriptions Amador Bustamante MD - 08/21/2023 7:16 AM EDT [facility] Patient Name: Savannah Carreon MD:: AMADOR BUSTAMANTE MD, Procedure Date: 08/21/2023 7:16 AM Date of : 1955 Age: 68 Admit Type: Outpatient Gender: Female Room: [place] [address] Referring MD: Belen Edwards Exam Type: Colonoscopy [...] monitored continuously. The Olympus adult variable colonoscope [id number] #7 was introduced through the anus and [...] 7:16 AM Procedure Code(s): --- Professional --- 77006, Colonoscopy, flexible; with biopsy, single or multiple --- Technical --- 88114, Colonoscopy, flexible; with biopsy, single or multiple Diagnosis Code(s): --- Professional --- Z12.11, Encounter for screening for malignantneoplasm of colon K64.8, Other hemorrhoids K57.30, Diverticulosis of large intestine without perforation or abscess without bleeding --- Technical --- Z12.11, Encounter for screening for malignantneoplasm of colon K64.8, Other hemorrhoids K57.30, Diverticulosis of large intestine without perforation or abscess without bleeding CPT copyright 2021 [employer]. All rights reserved. The codes documented in this report are preliminary and upon tax technician reviewmay be revised to meet current compliance requirements. Procedure Date: 08/21/2023 7:16:[address] [place] [address] us Belen Edwards NP GI PROCEDURE ORDERABLE S Final Result * Hepatitis C antibody, qualitative (08/06/2023 9:33 AM EDT) HCV NON-REACTIV E NON-REACTI VE [facility] Blood 08/06/2023 9:33 AM EDT 08/06/2023 9:34 AM EDT us Belen Edwards NP LAB BLOOD BKR ORDERABL ES Final Result [address] [address] * BI MAMMOGRAM SCREENING WITH TOMOSYNTHESIS WITH [...] bone mineral density was calculated at 0.523 gm/re3eplb a T- score of -2.9 falling within [...] or femoral neck bonedensity) Sedrick Shea MD IMMehrdad BD BONE DENSITY DEXA Fin al Result from Last 3 Months or Most Recently Relevant to Health Maintenance Insurance MEDICARE PART A & B [employer] MEDEX SUPPLEMENT MEDICARE PART A & B [facility] MEDEX SUPPLEMENT MEDICARE PART A & B [employer] MEDEX SUPPLEMENT ([place]) [address] [address] MEDICARE PART A & B [employer] MEDEX SUPPLEMENT MEDICARE PART A & B [employer] MEDEX SUPPLEMENT MEDICARE PART A & B [employer] MEDEX SUPPLEMENT MEDICARE PART A & B [facility] MEDEX SUPPLEMENT MEDICARE PART A & B [employer] MEDEX SUPPLEMENT MEDICARE PART A & B [employer] MEDEX SUPPLEMENT MEDICARE PART A & B [employer] [place] MEDEX SUPPLEMENT Advance Directives For more information, please contact: [phone] (9AM - 5PM [facility], Friday-Friday) * Full Code (Latest Code Status [...] Code Status Confirmed With: Patient Care Teams Hole Digger Relationship Specialty Start Date End Date Rukhsana Melgar NP [address] [place] [address] PCP - General Nurse Practitioner 10/20/24 Additional Source Comments The information contained in this document represents components of the legal health record. It is not the complete legal health record.[facility]
--- OUTSIDE RECORDS SUMMARY | 2025-04-20 15:26 | XMS_ITS | Encounter Summary ---
Author Organization [facility] Address [address] [place] [address] Phone Care Team Providers Care Wool Puller Name Role Phone Sedrick Shea MD Primary Care Provider [phone] Belen Edwards HEAT CURER Primary Care Provider Rukhsana Melgar HEAT CURER Primary Care Provider +[phone]- [phone] Encounter Details Date Type Department Care Team ([facility] Contact Info) Description 10/23/2021 Procedure Pass [facility] Cardio EP Device Monitoring [address] [place] [address] Social History Tobacco Use Types Packs/Day Years [...] documented as of this encounter Care Teams Wool Puller Relationship Specialty Start Date End Date Sedrick Shea MD [address] [place] [address] [email or web address] PCP - General Internal Medicine 02/06/21 02/12/23 Belen Edwards NP [address] [place] [phone] [email or web address] PCP - General Nurse Practitioner 02/13/23 10/19/24 Rukhsana Melgar NP [address] [place] [address] PCP - General Nurse Practitioner 10/20/24 documented as of this encounter Additional Source Comments The information contained in this document represents components of the legal health record. It is not the complete legal health record.[facility]
--- OUTSIDE RECORDS SUMMARY | 2025-04-20 15:26 | XMS_ITS | Encounter Summary ---
Author Organization [facility] Address [facility] [address] [place] [address] Phone Care Team Providers Care Radio Sales Account Executive Name Role Phone Sedrick Shea MD Primary Care Provider [phone] Belen Edwards STEEL BOX TOE INSERTER Primary Care Provider Rukhsana Melgar STEEL BOX TOE INSERTER Primary Care Provider [phone]- [phone] Encounter Details Date Type Department Care Team ([facility] Contact Info) Description 06/26/2021 Procedure Pass [facility] Cardio EP Device Monitoring [address] [place] [address] Social History Tobacco Use Types Packs/Day Years [...] documented as of this encounter Care Teams Radio Sales Account Executive Relationship Specialty Start Date End Date Sedrick Shea MD [address] [place] [address] [email or web address] PCP - General Internal Medicine 02/06/21 02/12/23 Belen Edwards NP [address] [place] [phone] [email or web address] PCP - General Nurse Practitioner 02/13/23 10/19/24 Rukhsana Melgar NP [address] [place] [address] PCP - General Nurse Practitioner 10/20/24 documented as of this encounter Additional Source Comments The information contained in this document represents components of the legal health record. It is not the complete legal health record.[facility]
--- OUTSIDE RECORDS SUMMARY | 2025-04-20 15:26 | XMS_ITS | Encounter Summary ---
Author Organization [facility] Address [facility] [address] [place] [address] Phone Care Team Providers Care Poker Supervisor Name Role Phone Sedrick Shea MD Primary Care Provider Belen Edwards COMPANION Primary Care Provider Rukhsana Melgar COMPANION Primary Care Provider [phone]- [phone] Encounter Details Date Type Department Care Team (Late st Contact Info) Description 08/22/2022 Procedure Pass [facility] Cardio EP Device Monitoring [address] [place] [address] Social History Tobacco Use Types Packs/Day Years [...] documented as of this encounter Care Teams Poker Supervisor Relationship Specialty Start Date End Date Sedrick Shea MD [address] [place] [address] [email or web address] PCP - General Internal Medicine 02/06/21 02/12/23 Belen Edwards NP [address] [place] [phone] [email or web address] PCP - General Nurse Practitioner 02/13/23 10/19/24 Rukhsana Melgar NP [address] [place] [address] PCP - General Nurse Practitioner 10/20/24 documented as of this encounter Additional Source Comments The information contained in this document represents components of the legal health record. It is not the complete legal health record.[facility]
--- OUTSIDE RECORDS SUMMARY | 2025-04-20 15:26 | XMS_ITS | Encounter Summary ---
Author Organization [facility] Address [facility] [address] [place] [address] Phone Care Team Providers Care Logging Tractor Operator Name Role Phone Sedrick Shea MD Primary Care Provider Belen Edwards GLOBAL MARKETING COORDINATOR Primary Care Provider Rukhsana Melgar GLOBAL MARKETING COORDINATOR Primary Care Provider [phone] Encounter Details Date Type Department Care Team ([facility] Contact Info) Description 07/25/[address] [facility] Cardio EP Device Monitoring [address] [place] [address] Social History Tobacco Use Types Packs/Day Years [...] documented as of this encounter Care Teams Logging Tractor Operator Relationship Specialty Start Date End Date Sedrick Shea MD [address] [place] [address] [email or web address] PCP - General Internal Medicine 02/06/21 02/12/23 Belen Edwards NP [address] [place] [phone] [email or web address] PCP - General Nurse Practitioner 02/13/23 10/19/24 Rukhsana Melgar NP [address] [place] [address] PCP - General Nurse Practitioner 10/20/24 documented as of this encounter Additional Source Comments The information contained in this document represents components of the legal health record. It is not the complete legal health record.[facility]
--- OUTSIDE RECORDS SUMMARY | 2025-04-20 15:26 | XMS_ITS | Encounter Summary ---
Author Organization [facility] Address [facility] ([place], [place]) [address] [place] [address] Phone Care Team Providers Care Drum Stock Clerk Name Role Phone Sedrick Shea MD Primary Care Provider Belen Edwards BUILDER BEAM Primary Care Provider Rukhsana Melgar BUILDER BEAM Primary Care Provider [phone]- [phone] Encounter Details Date Type Department Care Team (Latest Contact Info) Description 05/30/2022 Transcribe Orders Virtual Department [address] [place] [address] Sedrick Shea MD [address] [place] [address] [email or web address] [place] of left side of neck (Primary [...] lymphadenopathy: None. Parathyroid adenoma: None. Procedure Note Cinthay Spaulding MD - 06/18/2022 US THYROID GLAND [...] documented as of this encounter Care Teams Drum Stock Clerk Relationship Specialty Start Date End Date Sedrick Shea MD [address] [place] [address] [email or web address] ([email or web address]) PCP - General Internal Medicine 02/06/21 02/12/23 Belen Edwards NP [address] [place] [phone] [email or web address] PCP - General Nurse Practitioner 02/13/23 10/19/24 Rukhsana Melgar NP [address] [place] [address] PCP - General Nurse Practitioner 10/20/24 documented as of this encounter Additional Source Comments The information contained in this document represents components of the legal health record. It is not the complete legal health record.[facility]
--- OUTSIDE RECORDS SUMMARY | 2025-04-20 15:26 | XMS_ITS | Encounter Summary ---
Author Organization [facility] Address [facility] [address] [place] [address] Phone Care Team Providers Care Ore Charger Name Role Phone ResendezMarnie dodson Yazmin MAYFIELD Primary Care Provider [phone] Sedrick Shea MD Primary Care Provider [phone] Belen Edwards BRICK MAKER Primary Care Provider Rukhsana Melgar BRICK MAKER Primary Care Provider [phone]- [phone] Encounter Details Date Type Department Care Team (Late st Contact Info) Description 10/03/2020 Procedure Pass [facility] Electrophysiology Lab [address] [place] [id number] Social History Tobacco Use Types Packs/Day Years [...] 6:00 PM EDT Krupa Begum RN * [place] Suicide Severity Rating Scale (Screener/Recent Self-Report) Question [...] documented as of this encounter Care Teams Ore Charger Relationship Specialty Start Date End Date Marnie Resendez DO [address] [place] [address] ([phone]) [place] [address] PCP - General 04/08/20 02/05/21 Sedrick Shea MD [address] [place] [address] [email or web address] PCP - General Internal Medicine 02/06/21 02/12/23 Belen Edwards NP [address] [place] [phone] [email or web address] PCP - General Nurse Practitioner 02/13/23 10/19/24 Rukhsana Melgar NP [address] [place] [address] PCP - General Nurse Practitioner 10/20/24 documented as of this encounter Additional Source Comments The information contained in this document represents components of the legal health record. It is not the complete legal health record.[facility]
--- OUTSIDE RECORDS SUMMARY | 2025-04-20 15:26 | XMS_ITS | Encounter Summary ---
Author Organization [facility] Address [facility] [employer] [facility] [address] [place] [address] Phone Care Team Providers Care Pest Locator Name Role Phone Marnie Resendez DO Primary Care Provider [phone] Sedrick Shea MD Primary Care Provider [phone] Belen Edwards LIBRARY CATALOGING TECHNICIAN Primary Care Provider Rukhsana Melgar LIBRARY CATALOGING TECHNICIAN Primary Care Provider [phone]- [phone] Encounter Details Date Type Department Care Team (Late st Contact Info) Description 09/11/2020 Procedure Pass [facility] Electrophysiology Lab [address] [place] [address] Social History Tobacco Use Types Packs/Day Years [...] documented as of this encounter Care Teams Pest Locator Relationship Specialty Start Date End Date Marnie Resendez DO [address] [place] [address] ([address]) [place] [address] PCP - General 04/08/20 02/05/21 Sedrick Shea MD [address] [place] [address] [email or web address] PCP - General Internal Medicine 02/06/21 02/12/23 Belen Edwards NP [address] [place] [phone] PCP - General Nurse Practitioner 02/13/23 10/19/24 Rukhsana Melgar NP [address] [place] [address] PCP - General Nurse Practitioner 10/20/24 documented as of this encounter Additional Source Comments The information contained in this document represents components of the legal health record. It is not the complete legal health record.[facility]
--- OUTSIDE RECORDS SUMMARY | 2025-04-20 15:26 | XMS_ITS | Encounter Summary ---
Author Organization [facility] Address [facility] [address] [place] [address] Phone Care Team Providers Care Crib Tender Name Role Phone Sedrick Shea MD Primary Care Provider [phone] Belen Edwards IRRIGATION DISTRICT MANAGER Primary Care Provider Rukhsana Melgar IRRIGATION DISTRICT MANAGER Primary Care Provider [phone] Encounter Details Date Type Department Care Team ([facility] Contact Info) Description 07/25/2021 Procedure Pass [facility] Cardio EP Device Monitoring [address] [place] [address] Social History Tobacco Use Types Packs/Day Years [...] documented as of this encounter Care Teams Crib Tender Relationship Specialty Start Date End Date Sedrick Shea MD [address] [place] [address] [email or web address] PCP - General Internal Medicine 02/06/21 02/12/23 Belen Edwards NP [address] [place] [phone] [email or web address] PCP - General Nurse Practitioner 02/13/23 10/19/24 Rukhsana Melgar NP [address] [place] [address] PCP - General Nurse Practitioner 10/20/24 documented as of this encounter Additional Source Comments The information contained in this document represents components of the legal health record. It is not the complete legal health record.[facility]
--- OUTSIDE RECORDS SUMMARY | 2025-04-20 15:26 | XMS_ITS | Encounter Summary ---
Author Organization [facility] Address [facility] [address] [place] [address] Phone Care Team Providers Care Breaker Off Name Role Phone Sedrick Shea MD Primary Care Provider [phone] Belen Edwards ORTHOPEDICALLY IMPAIRED TEACHER Primary Care Provider Rukhsana Melgar ORTHOPEDICALLY IMPAIRED TEACHER Primary Care Provider [phone] Encounter Details Date Type Department Care Team ([facility] Contact Info) Description 07/24/2021 Procedure Pass [facility] Cardio EP Device Monitoring [address] [place] [address] Social History Tobacco Use Types Packs/Day Years [...] documented as of this encounter Care Teams Breaker Off Relationship Specialty Start Date End Date Sedrick Shea MD [address] [place] [address] [email or web address] PCP - General Internal Medicine 02/06/21 02/12/23 Belen Edwards NP [address] [place] [phone] [email or web address] PCP - General Nurse Practitioner 02/13/23 10/19/24 Rukhsana Melgar NP [address] [place] [address] PCP - General Nurse Practitioner 10/20/24 documented as of this encounter Additional Source Comments The information contained in this document represents components of the legal health record. It is not the complete legal health record.[facility]
--- OUTSIDE RECORDS SUMMARY | 2025-04-20 15:27 | XMS_ITS | Encounter Summary ---
Author Organization [facility] Address [address] [place] [address] Phone Care Team Providers Care Dry Food Products Mixer Name Role Phone Rukhsana Melgar NP Primary Care Provider [phone] Encounter Details Date Type Department Care Team ([facility] st Contact Info) Description 11/15/2024 Transcribe Orders Virtual Department [address] [place] [address] Peyman Fuentes [place] [email or web address] Abnormal findings on diagnostic imaging of other [...] for Exam: Abnormal Chest X-ray; Performing Location: [facility] PFT Routine Abnormal findings on diagnostic imaging of other specified body structures Expected: 11/15/2024, Expires: 11/15/2025 documented as of this encounter Visit Diagnoses Diagnosis Abnormal findings on diagnostic imaging of other specified body structures- Primary documented in this encounter Additional Health Concerns Assessment Noted Time PHQ-2 Depression Total Score: 2 08/25/19 21 8:59 AM EDT documented as of this encounter Care Teams Dry Food Products Mixer Relationship Specialty Start Date End Date Rukhsana Melgar NP [address] [place] [address] PCP - General Nurse Practitioner 10/20/24 documented as of this encounter Additional Source Comments The information contained in this document represents components of the legal health record. It is not the complete legal health record.[facility]
--- OUTSIDE RECORDS SUMMARY | 2025-04-20 15:27 | XMS_ITS | Encounter Summary ---
Author Organization [facility] Address [facility] [address] [place] [address] Phone Care Team Providers Care Director Outcomes Name Role Phone Dipti Marnie Arce DO Primary Care Provider [phone] Sedrick Shea MD Primary Care Provider [phone] Belen Edwards DIGITAL COMMUNICATIONS MANAGER Primary Care Provider Rukhsana Melgar DIGITAL COMMUNICATIONS MANAGER Primary Care Provider [phone] Encounter Details Date Type Department Care Team (Late st Contact Info) Description 09/12/2020 Transcribe Orders [facility] [address] [place] [address] [email or web address] Social History Tobacco Use Types [...] as of this encounter Care Teams Director Outcomes Relationship Specialty Start Date End Date Marnie Resendez DO [address] [place] [address] ([address]) [place] [address] PCP - General 04/08/20 02/05/21 Sedrick Shea MD [address] [place] [address] [email or web address] PCP - General Internal Medicine 02/06/21 02/12/23 Belen Edwards NP [address] [place] [phone] [email or web address] PCP - General Nurse Practitioner 02/13/23 10/19/24 Rukhsana Melgar NP [address] [place] [address] PCP - General Nurse Practitioner 10/20/24 documented as of this encounter Additional Source Comments The information contained in this document represents components of the legal health record. It is not the complete legal health record.[facility]
--- OUTSIDE RECORDS SUMMARY | 2025-04-20 15:27 | XMS_ITS | Encounter Summary ---
Author Organization [facility] Address [facility] [address] [place] [address] Phone Care Team Providers Care Final Assembly Inspector Name Role Phone Belen Edwards VEST BASTER Primary Care Provider Rukhsana Melgar VEST BASTER Primary Care Provider +1- [phone] Encounter Details Date Type Department Care Team (Late st Contact Info) Description 10/18/2024 Procedure Pass [facility], Ct Scan - [facility] [address] [place] [address] Social History Tobacco Use Types Packs/Day Years [...] documented as of this encounter Care Teams Final Assembly Inspector Relationship Specialty Start Date End Date Belen Edwards NP [address] [place] [phone] [email or web address] PCP - General Nurse Practitioner 02/13/23 10/19/24 Rukhsana Melgar NP [address] [place] [address] PCP - General Nurse Practitioner 10/20/24 documented as of this encounter Additional Source Comments The information contained in this document represents components of the legal health record. It is not the complete legal health record.[facility]
--- OUTSIDE RECORDS SUMMARY | 2025-04-20 15:27 | XMS_ITS | Encounter Summary ---
Author Organization [facility] Address [address] [place] [address] [place] [address] Phone Care Team Providers Care Combination Presser Name Role Phone Belen Edwards MANAGER REGULATORY Primary Care Provider Rukhsana Melgar MANAGER REGULATORY Primary Care Provider +1- [phone] Reason for Referral * MRI/CAT Scan - Closed Specialty Diagnoses / Procedures Referred By Scott t Referred To Contact Radiology Diagnoses Abnormal weight loss Procedures CT Abdomen Only (No Pelvis) Rukhsana Melgar NP [address] [place] [address] Phone: tel: fax: Referral ID Status Reason Start Date Expiration Date Visits Re quested Visits Authorized [id number] Closed 10/18/2024 10/18/2025 1 1 Encounter Details Date Type Department Care Team (Late st Contact Info) Description 10/18/2024 Transcribe Orders Virtual Department [address] [place] [address] Rukhsana Melgar NP [address] [place], [place] [phone] Abnormal weight loss (Primary Dx) Social History [...] clinician's provided indication for this examination in [facility]:Outside Radiology Order; weight loss TECHNIQUE: Multidetector-row [...] Healing fractures of the anterolateral left 9th [id number] ribs. Grade 2 anterolisthesis of L5 on [...] documented as of this encounter Care Teams Combination Presser Relationship Specialty Start Date End Date Belen Edwards NP [address] [place] [phone] [email or web address] PCP - General Nurse Practitioner 02/13/23 10/19/24 Rukhsana Melgar NP [address] [place] [address] PCP - General Nurse Practitioner 10/20/24 documented as of this encounter Additional Source Comments The information contained in this document represents components of the legal health record. It is not the complete legal health record.[facility]
== END 2025-04-20 13:23 | disposition home or self-care (01) ==
LOC: HO.HOS 12:58
PROVIDERS: Visit Provider Orthopaedic Surgery
DX: M25.561 Pain in right knee (principal)
CPT/HCPCS: 99203; G2211

== ENCOUNTER → 2025-04-20 12:57 | Outpatient (BNVA) | payer MEDICARE, SELFPAY | PROVIDERS: Visit Provider Orthopaedic Surgery | DX: M25.561 Pain in right knee (principal); Z79.01 Long term (current) use of anticoagulants | CPT/HCPCS: 99202 ==

== ENCOUNTER → 2025-05-16 11:00 | Outpatient (BNV) | payer MEDICARE, SELFPAY | PROVIDERS: Visit Provider Internal Medicine | DX: Z12.31 Encounter for screening mammogram for malignant neoplasm of breast (principal) | CPT/HCPCS: 77063; 77067 ==

== ENCOUNTER 2025-05-16 11:10 | Outpatient (REF) | payer MEDICARE, SELFPAY ==
--- OUTSIDE RECORDS SUMMARY | 2025-05-16 13:05 | XMS_ITS | Encounter Summary ---
Author Organization [facility] Address [address] [place] [address] Phone Care Team Providers Care Catalytic Converter Operator Helper Name Role Phone Sedrick Shea MD Primary Care Provider Belen Edwards COLLISION REPAIR TECHNICIAN Primary Care Provider Rukhsana Melgar COLLISION REPAIR TECHNICIAN Primary Care Provider +1- [phone] Encounter Details Date Type Department Care Team (Late st Contact Info) Description 12/05/2021 Procedure Pass [facility] Cardio EP Device Monitoring [address] [place] [address] Social History Tobacco Use Types Packs/Day Years [...] documented as of this encounter Care Teams Catalytic Converter Operator Helper Relationship Specialty Start Date End Date Sedrick Shea MD [address] [place] [address] [email or web address] PCP - General Internal Medicine 02/06/21 02/12/23 Belen Edwards NP [address] [place] [phone] [email or web address] PCP - General Nurse Practitioner 02/13/23 10/19/24 Rukhsana Melgar NP [address] [place] [address] PCP - General Nurse Practitioner 10/20/24 documented as of this encounter Additional Source Comments The information contained in this document represents components of the legal health record. It is not the complete legal health record.[facility]
--- OUTSIDE RECORDS SUMMARY | 2025-05-16 13:06 | XMS_ITS | Encounter Summary ---
Author Organization [facility] Address [address] [place] [address] Phone Care Team Providers Care Set Illustrator Name Role Phone Sedrick Shea MD Primary Care Provider Belen Edwards MECHANIC RECOVERY Primary Care Provider Rukhsana Melgar MECHANIC RECOVERY Primary Care Provider +1- [phone] Encounter Details Date Type Department Care Team (Late st Contact Info) Description 10/12/2022 Procedure Pass [facility] Cardio EP Device Monitoring [address] [place] [address] Social History Tobacco Use Types Packs/Day Years [...] documented as of this encounter Care Teams Set Illustrator Relationship Specialty Start Date End Date Sedrick Shea MD [address] [place] [address] [email or web address] PCP - General Internal Medicine 02/06/21 02/12/23 Belen Edwards NP [address] [place] [phone] [email or web address] PCP - General Nurse Practitioner 02/13/23 10/19/24 Rukhsana Melgar NP [address] [place] [address] PCP - General Nurse Practitioner 10/20/24 documented as of this encounter Additional Source Comments The information contained in this document represents components of the legal health record. It is not the complete legal health record.[facility]
--- OUTSIDE RECORDS SUMMARY | 2025-05-16 13:06 | XMS_ITS | Data Portability ---
Author Organization [place] [facility] Address [address] [facility] [address] [place] [address] Care Team Providers Care Benzene Worker Name Role Phone NICHOLAS QUINN Primary Care [...] mupirocin 2 % topical ointment 2023 024 [facility] #[id number], [address] [facility], [place], [address], 12:03:12 Patient TargetsNo targets recorded. Patient InstructionsNo instructions recorded. Reason for Referral None Reported. Problems Name Problem SNOMED Code Status Onset Date Resolution Date Notes Provider Name and Address Organization Details Recorded Time Tinnitus of right ear 89789767424 08 Active 2021 Tinnitus, right ear; Note: Date Diagnosed : 12:52 PM (H93.11) Not Available [facility] 08/02/202 4 02:59:56 Dizziness and giddiness 076946449 Active 2021 Dizziness and giddiness ; Note: Date Diagnosed : 2 10:43 AM (R42) Not Available [facility] 4 02:59:56 Sensorine ural hearing loss 09263361 Active 2021 Sensorine ural hearing loss, unilatera l, right ear, with unrestric sae hearing on the contralat eral side; Note: Date Diagnosed : 04/23/2022 3:04 PM (H90.41) Sensori neural hearing loss, unilatera l, right ear, with unrestric sae hearing on the contralat eral side; Note: Date Diagnosed : 2 12:52 PM (H90.41) ; Start Date : 2 Not Available [facility] 4 02:59:57 Nasal vestibuli tis 72516068 Active 2023 Natalee romero [place] - [facility] 4 12:02:46 Problem Notes None recorded. Procedures Surgical History Date Name Laterality Status Provider Name and Address Organization Details Recorded Time Nasal Endoscopy completed Natalee Mondragon [place] [facility] 03/23/2024 12:08:31 Imaging Results None recorded. Procedure Notes None recorded. Medical Equipment None Reported. Allergies Allergen ID Allergen Name Allergen Category Reaction Reaction Severity Criticality Documentation Date Start Date Code Code System Note Provider Name and Address Organization Details Recorded Time 05891 metronida zole medicatio n other Not available Not available 09/30/2023 6922 RxNorm React ion: Unkno wn; Not Available [facility] 4 01:06:01 39965 fluconazo le medicatio n other Not available Not available 09/30/2023 4450 RxNorm React ion: Unkno wn; Not Available [facility] 4 01:06:02 01534 omeprazol e medicatio n other Not available Not available 09/30/2023 7646 RxNorm React ion: Unkno wn; Not Available [facility] 4 01:06:03 79026 hydrochlo rothiazid e / irbesarta n medicatio n other Not available Not available 09/30/2023 70877 7 RxNorm React ion: Unkno wn; Not Available [facility] 4 01:06:04 30028 codeine medicatio n other Not available Not available 09/30/2023 2670 RxNorm React ion: Unkno wn; Not Available [facility] 4 01:06:06 11076 Cipro medicatio n other Not available Not available 09/30/2023 58773 3 RxNorm React ion: Unkno wn; Not Available [facility] 4 01:06:08 50465 Product containin g penicilli n (product) medicatio n other Not available Not available 09/30/2023 83841 8001 SNOMED React ion: Unkno wn; Not Available [facility] 4 01:06:10 Medications Name Sig Start Date Stop Date Status Note LastModified by Organization Details LastModified Time prednisone 10 mg tablet by mouth 2021 active Medicatio n ID: [id number] Pr escribed By Name: Isela Ulrich MD [...] 0.5 mg tablet active Medicatio n ID: [id number] Br and Name: lorazepam Send Method: E-Prescri [...] 300 mg capsule active Medicatio n ID: [id number] Br and Name: cefdinir Send Method: E-Prescri [...] Updated DateTime 03/23/2024 154.94 cm 23.2 kg/m2 33326.86 g Panfilo Ledbetter [place] [facility] 03/23/2024 11:38:27 Social History None recorded. Functional Status None recorded. Mental Status None recorded. Family History Nothing Reported. Medical History No medical history recorded. Gynecological HistoryNo gynecological history recorded. Obstetrics History GPAL:G 0 P 0 0 0 0 Past Encounters Encounter ID Performer Location Encounter Start Date Encounter Closed Date Diagnosis/Indication Diagnosis SNOMED-CT Code Diagnosis ICD10 Code Diagnosis IMO Codes Diagnosis Note [id number] NATALEE MONDRAGON PA-C [facility] on [address] [place] [address] 03/23/2024 11:10:16 03/23/2024 12:05:52 Nasal vestibulitis 58228172 J34.89 Suggest warm compresses followed by mupirocin ointment 3 times daily Health Concerns Section Related Observation LastModified by Organization Detai ls LastModified Time None Recorded Concern Status LastModified by Organization Details LastModified Time None Recorded Advance Directives Directive None Recorded Payers Insurance Date Sequence Insurance Name Policy Number Policy Sandoval Covered Member ID Sandoval Member ID Guarantor Name 03/25/2024 2 [facility] [id number] [facility] [id number] [facility] 03/23/2024 1 MEDICARE B-[place]: [employer] [facility] [id number] [facility] Notes Date Note Type Note Provider Name and Address Organization Details Recorded Time 03/23/2024 text/html ROS as noted in the HPI 68 year old female presents to the office for evaluation of nasal sores. She reports that she has had sores in her nose for about 5 months. She has been using Caulfield nasal gel and saline solution which do seem to be helping. She has used Bacitracin topically over the counter. She uses a humidifier at home. She has antiphospholipid syndrome and has evaluation with rheumatology in May to be evaluated for Sjogren's. She reports that her tongue feels very dry at night and she has had dry eyes for years. IKER BOOKER MD [address] [place] [address], [place], [phone], [facility] - [facility] 03/23/2024 12:30:10 OBGyn Episode No OBEpisode recorded.
--- OUTSIDE RECORDS SUMMARY | 2025-05-16 13:06 | XMS_ITS | Encounter Summary ---
Author Organization [facility] Address [facility] [employer] [facility] [address] [place] [address] Phone Care Team Providers Care Manager Interventional Name Role Phone Belen Edwards PLASTICS PROCESS HAND Primary Care Provider Rukhsana Melgar PLASTICS PROCESS HAND Primary Care Provider +1- [phone] Encounter Details Date Type Department Care Team (Late st Contact Info) Description 08/21/2023 Procedure Pass [facility] Admitting Dept Virtual Department [address] [place] [address] Social History Tobacco Use Types Packs/Day Years [...] as of this encounter Care Teams Manager Interventional Relationship Specialty Start Date End Date Belen Edwards NP [address] [place] [phone] [email or web address] PCP - General Nurse Practitioner 02/13/23 10/19/24 Rukhsana Melgar NP [address] [place] [address] PCP - General Nurse Practitioner 10/20/24 documented as of this encounter Additional Source Comments The information contained in this document represents components of the legal health record. It is not the complete legal health record.[facility]
--- OUTSIDE RECORDS SUMMARY | 2025-05-16 13:06 | XMS_ITS | Encounter Summary ---
Author Organization [facility] Address [facility] [address] [place] [address] Phone Care Team Providers Care Structural Analyst Name Role Phone Sedrick Shea MD Primary Care Provider Belen Edwards ORNAMENTAL RAIL INSTALLER Primary Care Provider Rukhsana Melgar ORNAMENTAL RAIL INSTALLER Primary Care Provider +1- [phone] Encounter Details Date Type Department Care Team (Late st Contact Info) Description 02/19/2022 Procedure Pass [facility] [address] [place] [address] Social History Tobacco Use Types Packs/Day Years [...] documented as of this encounter Care Teams Structural Analyst Relationship Specialty Start Date End Date Sedrick Shea MD [address] [place] [address] [email or web address] PCP - General Internal Medicine 02/06/21 02/12/23 Belen Edwards NP [address] [place] [phone] [email or web address] PCP - General Nurse Practitioner 02/13/23 10/19/24 Rukhsana Melgar NP [address] [place] [address] PCP - General Nurse Practitioner 10/20/24 documented as of this encounter Additional Source Comments The information contained in this document represents components of the legal health record. It is not the complete legal health record.[facility]
--- OUTSIDE RECORDS SUMMARY | 2025-05-16 13:06 | XMS_ITS | Encounter Summary ---
Author Organization [facility] Address [facility] [employer] [facility] [address] [place] [address] Phone Care Team Providers Care Retail Store Associate Name Role Phone Belen Edwards DYE AUTOMATION OPERATOR Primary Care Provider Rukhsana Melgar DYE AUTOMATION OPERATOR Primary Care Provider +1- [phone] Encounter Details Date Type Department Care Team (Late st Contact Info) Description 02/09/2024 Transcribe Orders Virtual Department [address] [place] [address] Belen Edwards, LATA [address] [place] [phone] [email or web address] Age-related osteoporosis without current pathological fracture [...] as of this encounter Care Teams Retail Store Associate Relationship Specialty Start Date End Date Belen Edwards NP [address] [place] [phone] [email or web address] PCP - General Nurse Practitioner 02/13/23 10/19/24 Rukhsana Melgar NP [address] [place] [address] PCP - General Nurse Practitioner 10/20/24 documented as of this encounter Additional Source Comments The information contained in this document represents components of the legal health record. It is not the complete legal health record.[facility]
--- OUTSIDE RECORDS SUMMARY | 2025-05-16 13:06 | XMS_ITS | Encounter Summary ---
Author Organization [facility] Address [address] [place] [address] Phone Care Team Providers Care Process Environmental Technician Name Role Phone Sedrick Shea MD Primary Care Provider Belen Edwards MOLD CAR PUSHER Primary Care Provider Rukhsana Melgar MOLD CAR PUSHER Primary Care Provider +1- [phone] Encounter Details Date Type Department Care Team (Late st Contact Info) Description 07/25/2021 Procedure Pass [facility] Cardio EP Device Monitoring [address] [place] [address] Social History Tobacco Use Types Packs/Day Years [...] as of this encounter Care Teams Process Environmental Technician Relationship Specialty Start Date End Date Sedrick Shea MD [address] [place] [address] [email or web address] PCP - General Internal Medicine 02/06/21 02/12/23 Belen Edwards NP [address] [place] [phone] [email or web address] PCP - General Nurse Practitioner 02/13/23 10/19/24 Rukhsana Melgar NP [address] [place] [address] PCP - General Nurse Practitioner 10/20/24 documented as of this encounter Additional Source Comments The information contained in this document represents components of the legal health record. It is not the complete legal health record.[facility]
--- OUTSIDE RECORDS SUMMARY | 2025-05-16 13:06 | XMS_ITS | Encounter Summary ---
Author Organization [facility] Address [facility] [address] [place] [address] Phone Care Team Providers Care Station Superintendent Name Role Phone Belen Edwards PRINT MANAGER Primary Care Provider Rukhsana Melgar PRINT MANAGER Primary Care Provider +1- [phone] Encounter Details Date Type Department Care Team (Late st Contact Info) Description 03/16/2024 Procedure Pass [facility] [address] [place] [address] Social History Tobacco Use Types Packs/Day Years [...] documented as of this encounter Care Teams Station Superintendent Relationship Specialty Start Date End Date Belen Edwards NP [address] [place] [phone] [email or web address] PCP - General Nurse Practitioner 02/13/23 10/19/24 Rukhsana Melgar NP [address] [place] [address] PCP - General Nurse Practitioner 10/20/24 documented as of this encounter Additional Source Comments The information contained in this document represents components of the legal health record. It is not the complete legal health record.[facility]
--- OUTSIDE RECORDS SUMMARY | 2025-05-16 13:06 | XMS_ITS | Encounter Summary ---
Author Organization [facility] Address [address] [place] [address] Phone Care Team Providers Care Shoe Stamper Name Role Phone Sedrick Shea MD Primary Care Provider [phone] Belen Edwards PROJECT PROGRAM MANAGER Primary Care Provider Rukhsana Melgar PROJECT PROGRAM MANAGER Primary Care Provider +1- [phone] Encounter Details Date Type Department Care Team (Late st Contact Info) Description 01/07/2022 Procedure Pass [facility] Cardio EP Device Monitoring [address] [place] [address] Social History Tobacco Use Types Packs/Day Years [...] documented as of this encounter Care Teams Shoe Stamper Relationship Specialty Start Date End Date Sedrick Shea MD [address] [place] [address] [email or web address] PCP - General Internal Medicine 02/06/21 02/12/23 Belen Edwards NP [address] [place] [phone] [email or web address] PCP - General Nurse Practitioner 02/13/23 10/19/24 Rukhsana Melgar NP [address] [place] [address] PCP - General Nurse Practitioner 10/20/24 documented as of this encounter Additional Source Comments The information contained in this document represents components of the legal health record. It is not the complete legal health record.[facility]
--- OUTSIDE RECORDS SUMMARY | 2025-05-16 13:06 | XMS_ITS | Encounter Summary ---
Author Organization [facility] Address [address] [place] [address] Phone Care Team Providers Care Production Crew Supervisor Name Role Phone Sedrick Shea MD Primary Care Provider Belen Edwards PERSONAL INVESTMENT ADVISER Primary Care Provider Rukhsana Melgar PERSONAL INVESTMENT ADVISER Primary Care Provider [phone]- [phone] Encounter Details Date Type Department Care Team (Late st Contact Info) Description 11/13/2022 Procedure Pass [facility] Cardio EP Device Monitoring [address] [place] [address] Social History Tobacco Use Types Packs/Day Years [...] as of this encounter Care Teams Production Crew Supervisor Relationship Specialty Start Date End Date Sedrick Shea MD [address] [place] [phone] [email or web address] PCP - General Internal Medicine 02/06/21 02/12/23 Belen Edwards NP [address] [place] [phone] [email or web address] PCP - General Nurse Practitioner 02/13/23 10/19/24 Rukhsana Melgar NP [address] [place] [address] PCP - General Nurse Practitioner 10/20/24 documented as of this encounter Additional Source Comments The information contained in this document represents components of the legal health record. It is not the complete legal health record.[facility]
--- OUTSIDE RECORDS SUMMARY | 2025-05-16 13:06 | XMS_ITS | Encounter Summary ---
Author Organization [facility] Address [address] [place] [address] Phone Care Team Providers Care Fountain Worker Name Role Phone Sedrick Shea MD Primary Care Provider [phone] Belen Edwards EXPLOSIVE OPERATOR BOMB Primary Care Provider Rukhsana Melgar EXPLOSIVE OPERATOR BOMB Primary Care Provider +1- [phone] Encounter Details Date Type Department Care Team (Late st Contact Info) Description 10/30/2021 Procedure Pass [facility] Cardio EP Device Monitoring [address] [place] [address] Social History Tobacco Use Types Packs/Day Years [...] documented as of this encounter Care Teams Fountain Worker Relationship Specialty Start Date End Date Sedrick Shea MD [address] [place] [address] [email or web address] PCP - General Internal Medicine 02/06/21 02/12/23 Belen Edwards NP [address] [place] [phone] [email or web address] PCP - General Nurse Practitioner 02/13/23 10/19/24 Rukhsana Melgar NP [address] [place] [address] PCP - General Nurse Practitioner 10/20/24 documented as of this encounter Additional Source Comments The information contained in this document represents components of the legal health record. It is not the complete legal health record.[facility]
--- OUTSIDE RECORDS SUMMARY | 2025-05-16 13:06 | XMS_ITS | Encounter Summary ---
Author Organization [facility] Address [address] [place] [address] Phone Care Team Providers Care Basket Filler Name Role Phone Sedrick Shea MD Primary Care Provider Belen Edwards TRAINING AND DEVELOPMENT MANAGER Primary Care Provider Rukhsana Melgar TRAINING AND DEVELOPMENT MANAGER Primary Care Provider +1- [phone] Encounter Details Date Type Department Care Team (Late st Contact Info) Description 12/13/2022 Procedure Pass [facility] Electrophysiology Lab [address] [place] [address] Social History Tobacco Use Types Packs/Day Years [...] documented as of this encounter Care Teams Basket Filler Relationship Specialty Start Date End Date Sedrick Shea MD [address] [place] [address] [email or web address] PCP - General Internal Medicine 02/06/21 02/12/23 Belen Edwards NP [address] [place] [phone] [email or web address] PCP - General Nurse Practitioner 02/13/23 10/19/24 Rukhsana Melgar NP [address] [place] [address] PCP - General Nurse Practitioner 10/20/24 documented as of this encounter Additional Source Comments The information contained in this document represents components of the legal health record. It is not the complete legal health record.[facility]
--- OUTSIDE RECORDS SUMMARY | 2025-05-16 13:06 | XMS_ITS | Encounter Summary ---
Author Organization [facility] Address [address] [place] [address] [place] [address] Phone Care Team Providers Care Flight Technician Name Role Phone Sedrick Shea MD Primary Care Provider Belen Edwards COURTROOM CLERK Primary Care Provider Rukhsana Melgar COURTROOM CLERK Primary Care Provider [phone]- [phone] Encounter Details Date Type Department Care Team (Latest Contact Info) Description 02/19/2022 Transcribe Orders Virtual Department 30 [place] [address] Sedrick Shea MD [address] [place] [address] [email or web address] Breast screening (Primary Dx) Social History Tobacco [...] documented as of this encounter Care Teams Flight Technician Relationship Specialty Start Date End Date Sedrick Shea MD [address] [place] [address] [email or web address] PCP - General Internal Medicine 02/06/21 02/12/23 Belen Edwards NP [address] [place] [phone] [email or web address] PCP - General Nurse Practitioner 02/13/23 10/19/24 Rukhsana Melgar NP [address] [place] [address] PCP - General Nurse Practitioner 10/20/24 documented as of this encounter Additional Source Comments The information contained in this document represents components of the legal health record. It is not the complete legal health record.[facility]
--- OUTSIDE RECORDS SUMMARY | 2025-05-16 13:06 | XMS_ITS | Encounter Summary ---
Author Organization [facility] Address [facility] [address] [place] [address] Phone Care Team Providers Care Mucker Operator Name Role Phone Sedrick Shea MD Primary Care Provider Belen Edwards BUSH AND VINE FRUIT CROP FARMER Primary Care Provider Rukhsana Melgar BUSH [employer] VINE FRUIT CROP FARMER Primary Care Provider [phone]- [phone] Encounter Details Date Type Department Care Team (Late st Contact Info) Description 01/17/2022 Ancillary Orders [facility], -[address] [address] Sedrick Shea MD [address] [place] [address] [phone] [email or web address] Right wrist pain Social History Tobacco Use [...] documented as of this encounter Care Teams Mucker Operator Relationship Specialty Start Date End Date Sedrick Shea MD [address] [address] [email or web address] PCP - General Internal Medicine 02/06/21 02/12/23 Belen Edwards NP [address] [place] [address] [email or web address] PCP - General Nurse Practitioner 02/13/23 10/19/24 Rukhsana Melgar NP [address] [place] [address] PCP - General Nurse Practitioner 10/20/24 documented as of this encounter Additional Source Comments The information contained in this document represents components of the legal health record. It is not the complete legal health record.[facility]
--- OUTSIDE RECORDS SUMMARY | 2025-05-16 13:07 | XMS_ITS | Encounter Summary ---
Author Organization [facility] Address [address] [place] [address] [place] [address] Phone Care Team Providers Care Green Jobs Trainer Name Role Phone Sedrick Shea MD Primary Care Provider [phone] Belen Edwards RIDING TEACHER Primary Care Provider Rukhsana Melgar RIDING TEACHER Primary Care Provider [phone]- [phone] Reason for Referral * MRI/CAT Scan - Closed Specialty Diagnoses / Procedures Referred By Scott nguyen Referred To Contact Radiology Diagnoses Sensorineural hearing loss, unilateral, right ear, with unrestricted hearing on the contralateral side Tinnitus of right ear Dizziness and giddiness Procedures MRI Brain Coral Melendez PA-C Phone: tel: fax: [email or web address] Referral ID Status Reason Start Date Expiration Date Visits Re quested Visits Authorized [id number] Closed 05/03/2022 05/03/2023 1 1 Encounter Details Date Type Department Care Team (Late st Contact Info) Description 05/03/2022 Transcribe Orders Virtual Department 30 [place] [address] Coral Melendez PA-C [address] [place] [address] [email or web address] Sensorineural hearing loss, unilateral, right [...] documented as of this encounter Care Teams Green Jobs Trainer Relationship Specialty Start Date End Date Sedrick Shea MD [address] [place] [address] [email or web address] PCP - General Internal Medicine 02/06/21 02/12/23 Belen Edwards NP [address] [place] [phone] [email or web address] PCP - General Nurse Practitioner 02/13/23 10/19/24 Rukhsana Melgar NP [address] [place] [address] PCP - General Nurse Practitioner 10/20/24 documented as of this encounter Additional Source Comments The information contained in this document represents components of the legal health record. It is not the complete legal health record.[facility]
--- OUTSIDE RECORDS SUMMARY | 2025-05-16 13:07 | XMS_ITS | Encounter Summary ---
Author Organization [facility] Address [address] [place] [address] Phone Care Team Providers Care Marketing Research Intern Name Role Phone Sedrick Shea MD Primary Care Provider [phone] Belen Edwards MECHANIC Primary Care Provider Rukhsana Melgar MECHANIC Primary Care Provider [phone]- [phone] Encounter Details Date Type Department Care Team (Late st Contact Info) Description 12/16/2022 Procedure Pass [facility] Cardio EP Device Monitoring [address] [place] [address] Social History Tobacco Use Types Packs/Day Years [...] documented as of this encounter Care Teams Marketing Research Intern Relationship Specialty Start Date End Date Sedrick Shea MD [address] [place] [address] [email or web address] PCP - General Internal Medicine 02/06/21 02/12/23 Belen Edwards NP [address] [place] [phone] [email or web address] PCP - General Nurse Practitioner 02/13/23 10/19/24 Rukhsana Melgar NP [address] [place] [address] PCP - General Nurse Practitioner 10/20/24 documented as of this encounter Additional Source Comments The information contained in this document represents components of the legal health record. It is not the complete legal health record.[facility]
--- OUTSIDE RECORDS SUMMARY | 2025-05-16 13:07 | XMS_ITS | Encounter Summary ---
Author Organization [facility] Address [facility] [address] [place] [address] Phone Care Team Providers Care Medical Claims Manager Name Role Phone Sedrick Shea MD Primary Care Provider Belen Edwards CHIEF OPERATOR SYNTHESIS Primary Care Provider Rukhsana Melgar CHIEF OPERATOR SYNTHESIS Primary Care Provider [phone] Encounter Details Date Type Department Care Team (Late st Contact Info) Description 05/27/2022 Procedure Pass [facility] Cardio Device Monitoring [address] [place] [address] Social History Tobacco Use Types Packs/Day Years [...] as of this encounter Care Teams Medical Claims Manager Relationship Specialty Start Date End Date Sedrick Shea MD [address] [place] [address] PCP - General Internal Medicine 02/06/21 02/12/23 Belen Edwards NP [address] [place] [phone] [email or web address] PCP - General Nurse Practitioner 02/13/23 10/19/24 Rukhsana Melgar NP [address] [place] [address] PCP - General Nurse Practitioner 10/20/24 documented as of this encounter Additional Source Comments The information contained in this document represents components of the legal health record. It is not the complete legal health record.[facility]
--- OUTSIDE RECORDS SUMMARY | 2025-05-16 13:07 | XMS_ITS | Encounter Summary ---
Author Organization [facility] Address [address] [place] [address] Phone Care Team Providers Care Plate Glass Installer Helper Name Role Phone Sedrick Shea MD Primary Care Provider Belen Edwards FINANCIAL EXAMINER Primary Care Provider Rukhsana Melgar FINANCIAL EXAMINER Primary Care Provider [phone]- [phone] Encounter Details Date Type Department Care Team (Late st Contact Info) Description 07/24/2021 Procedure Pass [facility] Cardio EP Device Monitoring [address] [place] [address] Social History Tobacco Use Types Packs/Day Years [...] as of this encounter Care Teams Plate Glass Installer Helper Relationship Specialty Start Date End Date Sedrick Shea MD [address] [place] [address] [email or web address] PCP - General Internal Medicine 02/06/21 02/12/23 Belen Edwards NP [address] [place] [phone] [email or web address] PCP - General Nurse Practitioner 02/13/23 10/19/24 Rukhsana Melgar NP [address] [place] [address] PCP - General Nurse Practitioner 10/20/24 documented as of this encounter Additional Source Comments The information contained in this document represents components of the legal health record. It is not the complete legal health record.[facility]
--- OUTSIDE RECORDS SUMMARY | 2025-05-16 13:07 | XMS_ITS | Encounter Summary ---
Author Organization [facility] Address [facility] [employer] [facility] [address] [place] [address] Phone Care Team Providers Care Cell Plasterer Name Role Phone Sedrick Shea MD Primary Care Provider [phone] Belen Edwards PRINCIPAL TECHNICAL ARCHITECT Primary Care Provider Rukhsana Melgar PRINCIPAL TECHNICAL ARCHITECT Primary Care Provider [phone]- [phone] Encounter Details Date Type Department Care Team (Late st Contact Info) Description 05/03/2022 Procedure Pass [facility], [address] [address] Social History Tobacco Use Types Packs/Day Years [...] documented as of this encounter Care Teams Cell Plasterer Relationship Specialty Start Date End Date Sedrick Shea MD [address] [place] [address] [email or web address] PCP - General Internal Medicine 02/06/21 02/12/23 Belen Edwards NP [address] [place] [phone] [email or web address] PCP - General Nurse Practitioner 02/13/23 10/19/24 Rukhsana Melgar NP [address] [place] [address] PCP - General Nurse Practitioner 10/20/24 documented as of this encounter Additional Source Comments The information contained in this document represents components of the legal health record. It is not the complete legal health record.[facility]
--- OUTSIDE RECORDS SUMMARY | 2025-05-16 13:07 | XMS_ITS | Encounter Summary ---
Author Organization [facility] Address [address] [place] [address] Phone Care Team Providers Care Dialysis Nurse Name Role Phone Sedrick Shea MD Primary Care Provider Belen Edwards PHOTOCOPYING EQUIPMENT MECHANIC Primary Care Provider Rukhsana Melgar PHOTOCOPYING EQUIPMENT MECHANIC Primary Care Provider [phone] Encounter Details Date Type Department Care Team (Late st Contact Info) Description 09/14/2022 Procedure Pass [facility] Cardio EP Device Monitoring [address] [place] [address] Social History Tobacco Use Types Packs/Day Years [...] documented as of this encounter Care Teams Dialysis Nurse Relationship Specialty Start Date End Date Sedrick Shea MD [address] [place] [address] [email or web address] PCP - General Internal Medicine 02/06/21 02/12/23 Belen Edwards NP [address] [place] [phone] [email or web address] PCP - General Nurse Practitioner 02/13/23 10/19/24 Rukhsana Melgar NP [address] [place] [address] PCP - General Nurse Practitioner 10/20/24 documented as of this encounter Additional Source Comments The information contained in this document represents components of the legal health record. It is not the complete legal health record.[facility]
--- OUTSIDE RECORDS SUMMARY | 2025-05-16 13:07 | XMS_ITS | Encounter Summary ---
Author Organization [facility] Address [address] [place] [address] Phone Care Team Providers Care Program Director Cable Television Name Role Phone Rukhsana Melgar [employer]NERS Primary Care Provider [phone]- [phone] Encounter Details Date Type Department Care Team (Late st Contact Info) Description 12/21/2024 Procedure Pass [facility], Ct Scan - [facility] [address] [place] [address] Social History Tobacco Use Types Packs/Day Years [...] documented as of this encounter Care Teams Program Director [employer] Relationship Specialty Start Date End Date Rukhsana Melgar NP [address] [place] [address] PCP - General Nurse Practitioner 10/20/24 documented as of this encounter Additional Source Comments The information contained in this document represents components of the legal health record. It is not the complete legal health record.[facility]
--- OUTSIDE RECORDS SUMMARY | 2025-05-16 13:07 | XMS_ITS | Encounter Summary ---
Author Organization [facility] Address [address] [place] [address] Phone Care Team Providers Care Strap Making Machine Operator Name Role Phone Sedrick Shea MD Primary Care Provider [phone] Belen Edwards INDUSTRIAL AUTOMATION SPECIALIST Primary Care Provider Rukhsana Melgar INDUSTRIAL AUTOMATION SPECIALIST Primary Care Provider +1- [phone] Encounter Details Date Type Department Care Team (Late st Contact Info) Description 06/26/2021 Procedure Pass [facility] Cardio EP Device Monitoring [address] [place] [address] Social History Tobacco Use Types Packs/Day Years [...] documented as of this encounter Care Teams Strap Making Machine Operator Relationship Specialty Start Date End Date Sedrick Shea MD [address] [place] [address] [email or web address] PCP - General Internal Medicine 02/06/21 02/12/23 Belen Edwards NP [address] [place] [phone] [email or web address] PCP - General Nurse Practitioner 02/13/23 10/19/24 Rukhsana Melgar NP [address] [place] [address] PCP - General Nurse Practitioner 10/20/24 documented as of this encounter Additional Source Comments The information contained in this document represents components of the legal health record. It is not the complete legal health record.[facility]
--- OUTSIDE RECORDS SUMMARY | 2025-05-16 13:07 | XMS_ITS | Encounter Summary ---
Author Organization [facility] Address [address] [place] [address] Phone Care Team Providers Care Vocational Coordinator Name Role Phone Sedrick Shea MD Primary Care Provider Belen Edwards CHEESE MAKER Primary Care Provider Rukhsana Melgar CHEESE MAKER Primary Care Provider [phone]- [phone] Encounter Details Date Type Department Care Team (Late st Contact Info) Description 07/25/2021 Procedure Pass [facility] Cardio EP Device Monitoring [address] [place] [address] Social History Tobacco Use Types Packs/Day Years [...] documented as of this encounter Care Teams Vocational Coordinator Relationship Specialty Start Date End Date Sedrick Shea MD [address] [place] [address] [email or web address] PCP - General Internal Medicine 02/06/21 02/12/23 Belen Edwards NP [address] [place] [phone] [email or web address] PCP - General Nurse Practitioner 02/13/23 10/19/24 Rukhsana Melgar NP [address] [place] [address] PCP - General Nurse Practitioner 10/20/24 documented as of this encounter Additional Source Comments The information contained in this document represents components of the legal health record. It is not the complete legal health record.[facility]
--- OUTSIDE RECORDS SUMMARY | 2025-05-16 13:07 | XMS_ITS | Encounter Summary ---
Author Organization [facility] Address [facility] [employer] [facility] [address] [place] [address] Phone Care Team Providers Care Lining Strap Closer Name Role Phone Sedrick Shea MD Primary Care Provider Belen Edwards MANAGER CABLE Primary Care Provider Rukhsana Melgar MANAGER CABLE Primary Care Provider [phone]- [phone] Encounter Details Date Type Department Care Team (Late st Contact Info) Description 10/02/2022 Procedure Pass [place] Admitting Dept - Virtual Department [address] [place] [address] Social History Tobacco Use Types Packs/Day Years [...] documented as of this encounter Care Teams Lining Strap Closer Relationship Specialty Start Date End Date Sedrick Shea MD [address] [place] [address] [email or web address] PCP - General Internal Medicine 02/06/21 02/12/23 Belen Edwards NP [address] [place] [phone] [email or web address] PCP - General Nurse Practitioner 02/13/23 10/19/24 Rukhsana Melgar NP [address] [place] [address] PCP - General Nurse Practitioner 10/20/24 documented as of this encounter Additional Source Comments The information contained in this document represents components of the legal health record. It is not the complete legal health record.[facility]
--- OUTSIDE RECORDS SUMMARY | 2025-05-16 13:07 | XMS_ITS | Encounter Summary ---
Author Organization [facility] Address [facility] [employer] [facility] [address] [place] [address] Phone Care Team Providers Care Geotechnical Laboratory Technician Name Role Phone Belen Edwards ZOO VETERINARIAN Primary Care Provider Rukhsana Melgar ZOO VETERINARIAN Primary Care Provider +1- [phone] Encounter Details Date Type Department Care Team (Late st Contact Info) Description 04/23/2023 Procedure Pass [facility] Admitting Dept Virtual Department 30 [place] [address] Social History Tobacco Use Types Packs/Day Years [...] documented as of this encounter Care Teams Geotechnical Laboratory Technician Relationship Specialty Start Date End Date Belen Edwards NP [address] [place] [phone] [email or web address] PCP - General Nurse Practitioner 02/13/23 10/19/24 Rukhsana Melgar NP [address] [place] [address] PCP - General Nurse Practitioner 10/20/24 documented as of this encounter Additional Source Comments The information contained in this document represents components of the legal health record. It is not the complete legal health record.[facility]
--- OUTSIDE RECORDS SUMMARY | 2025-05-16 13:07 | XMS_ITS | Encounter Summary ---
Author Organization [facility] Address [address] [place] [address] Phone Care Team Providers Care Health Unit Supervisor Name Role Phone Sedrick Shea MD Primary Care Provider Belen Edwards OPERATIONAL METEOROLOGIST Primary Care Provider Rukhsana Melgar OPERATIONAL METEOROLOGIST Primary Care Provider [phone]- [phone] Encounter Details Date Type Department Care Team (Late st Contact Info) Description 07/12/2021 [facility] Pass [facility] Cardio EP Device Monitoring [address] [place] [address] Social History Tobacco Use Types Packs/Day Years [...] as of this encounter Care Teams Health Unit Supervisor Relationship Specialty Start Date End Date Sedrick Shae MD [address] [place] [address] [email or web address] PCP - General Internal Medicine 02/06/21 02/12/23 Belen Edwards NP [address] [place] [phone] [email or web address] PCP - General Nurse Practitioner 02/13/23 10/19/24 Rukhsana Melgar NP [address] [place] [address] PCP - General Nurse Practitioner 10/20/24 documented as of this encounter Additional Source Comments The information contained in this document represents components of the legal health record. It is not the complete legal health record.[facility]
--- OUTSIDE RECORDS SUMMARY | 2025-05-16 13:07 | XMS_ITS | Encounter Summary ---
Author Organization [facility] Address [address] [place] [address] Phone Care Team Providers Care Public Health Specialist Name Role Phone Sedrick Shea MD Primary Care Provider Belen Edwards SUPERVISOR PLEATING Primary Care Provider Rukhsana Melgar SUPERVISOR PLEATING Primary Care Provider [phone]- [phone] Encounter Details Date Type Department Care Team (Late st Contact Info) Description 10/23/2021 Procedure Pass [facility] Cardio EP Device Monitoring [address] [place] [address] Social History Tobacco Use Types Packs/Day Years [...] documented as of this encounter Care Teams Public Health Specialist Relationship Specialty Start Date End Date Sedrick Shea MD [address] [place] [address] [email or web address] PCP - General Internal Medicine 02/06/21 02/12/23 Belen Edwards NP [address] [place] [phone] [email or web address] PCP - General Nurse Practitioner 02/13/23 10/19/24 Rukhsana Melgar NP [address] [place] [address] PCP - General Nurse Practitioner 10/20/24 documented as of this encounter Additional Source Comments The information contained in this document represents components of the legal health record. It is not the complete legal health record.[facility]
--- OUTSIDE RECORDS SUMMARY | 2025-05-16 13:07 | XMS_ITS | Encounter Summary ---
Author Organization [facility] Address [address] [place] [address] Phone Care Team Providers Care Box Maker Name Role Phone Sedrick Shea MD Primary Care Provider Belen Edwards P D DRIVER Primary Care Provider Rukhsana Melgar P D DRIVER Primary Care Provider [phone]- [phone] Encounter Details Date Type Department Care Team (Late st Contact Info) Description 01/24/2023 Procedure Pass [facility] Cardio EP Device Monitoring [address] [place] [address] Social History Tobacco Use Types Packs/Day Years [...] documented as of this encounter Care Teams Box Maker Relationship Specialty Start Date End Date Sedrick Shea MD [address] [place] [address] [email or web address] PCP - General Internal Medicine 02/06/21 02/12/23 Belen Edwards NP [address] [place] [phone] PCP - General Nurse Practitioner 02/13/23 10/19/24 Rukhsana Melgar NP [address] [place] [address] PCP - General Nurse Practitioner 10/20/24 documented as of this encounter Additional Source Comments The information contained in this document represents components of the legal health record. It is not the complete legal health record.[facility]
--- OUTSIDE RECORDS SUMMARY | 2025-05-16 13:07 | XMS_ITS | Encounter Summary ---
Author Organization [facility] Address [address] [place] [address] [place] [address] Phone Care Team Providers Care Visual Effects Artist Name Role Phone Rukhsana Melgar NP Primary Care Provider [phone]- [phone] Reason for Referral * MRI/CAT Scan - Closed Specialty Diagnoses / Procedures Referred By Scott nguyen Referred To Contact Radiology Diagnoses Abnormal findings on diagnostic imaging of other specified body structures Procedures CT Chest Rukhsana Melgar NP [address] [place] [address] Phone: tel: fax: Referral ID Status Reason Start Date Expiration Date Visits Re quested Visits Authorized [id number] Closed 12/21/2024 12/21/2025 1 1 Encounter Details Date Type Department Care Team (Late st Contact Info) Description 12/21/2024 Transcribe Orders Virtual Department [address] [place] [address] Rukhsana Melgar NP [address], [place] [phone] Abnormal findings on diagnostic imaging of other [...] MGB IMG RECOMMENDATION COMMENT chest reticular opacities [facility] Anatomical Region Laterality Modality [...] clinician's provided indication for this examination in [facility]: Outside Radiology Order; abnormal imaging TECHNIQUE: Multidetector [...] clinician's provided indication for this examination in [facility]:Outside Radiology Order; abnormal imaging TECHNIQUE: Multidetector CT [...] and 6-12 months for reticularopacities. Rukhsana Melgar AIRLINE SECURITY REPRESENTATIVE IMG CT CHEST Final Resu lt documented in this encounter Visit Diagnoses Diagnosis Abnormal findings on diagnostic imaging of other specified body structures- Primary Abnormal findings on diagnostic imaging of other specified body structures documented in this encounter Additional Health Concerns Assessment Noted Time PHQ-2 Depression Total Score: 2 08/25/19 21 8:59 AM EDT documented as of this encounter Care Teams Visual Effects Artist Relationship Specialty Start Date End Date Rukhsana Melgar NP [address] [place] [address] PCP - General Nurse Practitioner 10/20/24 documented as of this encounter Additional Source Comments The information contained in this document represents components of the legal health record. It is not the complete legal health record.[facility]
--- OUTSIDE RECORDS SUMMARY | 2025-05-16 13:07 | XMS_ITS | Encounter Summary ---
Author Organization [facility] Address [address] [place] [address] Phone Care Team Providers Care Restorative Care Technician Name Role Phone Sedrick Shea MD Primary Care Provider Belen Edwards STAFF CONSULTANT Primary Care Provider Rukhsana Melgar STAFF CONSULTANT Primary Care Provider +1- [phone] Encounter Details Date Type Department Care Team (Late st Contact Info) Description 06/12/2021 Procedure Pass [facility] Cardio EP Device Monitoring [address] [place] [address] Social History Tobacco Use Types Packs/Day Years [...] documented as of this encounter Care Teams Restorative Care Technician Relationship Specialty Start Date End Date Sedrick Shea MD [address] [place] [address] [email or web address] PCP - General Internal Medicine 02/06/21 02/12/23 Belen Edwards NP [address] [place] [phone] [email or web address] PCP - General Nurse Practitioner 02/13/23 10/19/24 Rukhsana Melgar NP [address] [place] [address] PCP - General Nurse Practitioner 10/20/24 documented as of this encounter Additional Source Comments The information contained in this document represents components of the legal health record. It is not the complete legal health record.[facility]
--- OUTSIDE RECORDS SUMMARY | 2025-05-16 13:07 | XMS_ITS | Encounter Summary ---
Author Organization [facility] Address [address] [place] [address] Phone Care Team Providers Care Manager Placement Name Role Phone Sedrick Shea MD Primary Care Provider [phone] Belen Edwards PACKAGE WORKER Primary Care Provider Rukhsana Melgar PACKAGE WORKER Primary Care Provider [phone]- [phone] Encounter Details Date Type Department Care Team (Late st Contact Info) Description 07/25/2021 Procedure Pass [facility] Cardio EP Device Monitoring [address] [place] [address] Social History Tobacco Use Types Packs/Day Years [...] as of this encounter Care Teams Manager Placement Relationship Specialty Start Date End Date Sedrick Shea MD [address] [place] [address] [email or web address] PCP - General Internal Medicine 02/06/21 02/12/23 Belen Edwards NP [address] [place] [phone] [email or web address] PCP - General Nurse Practitioner 02/13/23 10/19/24 Rukhsana Melgar NP [address] [place] [address] PCP - General Nurse Practitioner 10/20/24 documented as of this encounter Additional Source Comments The information contained in this document represents components of the legal health record. It is not the complete legal health record.[facility]
--- OUTSIDE RECORDS SUMMARY | 2025-05-16 13:07 | XMS_ITS | Encounter Summary ---
Author Organization [facility] Address [address] [place] [address] Phone Care Team Providers Care Sales Support Administrator Name Role Phone Sedrick Shea MD Primary Care Provider [phone] Belen Edwards ASPHALT BLENDER Primary Care Provider Rukhsana Melgar ASPHALT BLENDER Primary Care Provider [phone]- [phone] Encounter Details Date Type Department Care Team (Late st Contact Info) Description 07/25/2021 Procedure Pass [facility] Cardio EP Device Monitoring [address] [place] [address] Social History Tobacco Use Types Packs/Day Years [...] documented as of this encounter Care Teams Sales Support Administrator Relationship Specialty Start Date End Date Sedrick Shea MD [address] [place] [address] [email or web address] PCP - General Internal Medicine 02/06/21 02/12/23 Belen Edwards NP [address] [place] [phone] [email or web address] PCP - General Nurse Practitioner 02/13/23 10/19/24 Rukhsana Meglar NP [address] [place] [address] PCP - General Nurse Practitioner 10/20/24 documented as of this encounter Additional Source Comments The information contained in this document represents components of the legal health record. It is not the complete legal health record.[facility]
--- OUTSIDE RECORDS SUMMARY | 2025-05-16 13:07 | XMS_ITS | Encounter Summary ---
Author Organization [facility] Address [address] [place] [address] Phone Care Team Providers Care Cemetery Laborer Name Role Phone Sedrick Shea MD Primary Care Provider [phone] Belen Edwards RUG INSPECTOR HELPER Primary Care Provider Rukhsana Melgar RUG INSPECTOR HELPER Primary Care Provider [phone]- [phone] Encounter Details Date Type Department Care Team (Late st Contact Info) Description 10/01/2022 Prep for Surgery [facility] [address] [place] [address] [phone] Luma Gimenez MD [address] [place] [address] Orthopedics & Sports Medicine, [facility] [place], [place] [phone] Social History Tobacco Use Types Packs/Day Years [...] documented as of this encounter Care Teams Cemetery Laborer Relationship Specialty Start Date End Date Sedrick Shea MD [address] [place] [address] [email or web address] PCP - General Internal Medicine 02/06/21 02/12/23 Belen Edwards NP [address] [place] [phone] [email or web address] PCP - General Nurse Practitioner 02/13/23 10/19/24 Rukhsana Melgar NP [address] [place] [address] PCP - General Nurse Practitioner 10/20/24 documented as of this encounter Additional Source Comments The information contained in this document represents components of the legal health record. It is not the complete legal health record.[facility]
--- OUTSIDE RECORDS SUMMARY | 2025-05-16 13:08 | XMS_ITS | Encounter Summary ---
Author Organization [facility] Address [facility] [address] [place] [address] Phone Care Team Providers Care Manager Background Name Role Phone Marnie Resendez DO Primary Care Provider [phone] Sedrick Shea MD Primary Care Provider Belen Edwards BAND BOOKER Primary Care Provider Rukhsana Melgar BAND BOOKER Primary Care Provider [phone]- [phone] Encounter Details Date Type Department Care Team (Late st Contact Info) Description 09/14/2020 Procedure Pass [facility] [address] [place] [address] Social History Tobacco Use Types Packs/Day Years [...] as of this encounter Care Teams Manager Background Relationship Specialty Start Date End Date Marnie Resendez DO [address] [place] [address] ([address]) [place] [address] PCP - General 04/08/20 02/05/21 Sedrick Shea MD [address] [place] [address] [email or web address] PCP - General Internal Medicine 02/06/21 02/12/23 Belen Edwards NP [address] [place] [phone] [email or web address] PCP - General Nurse Practitioner 02/13/23 10/19/24 Rukhsana Melgar NP [address] [place] [address] PCP - General Nurse Practitioner 10/20/24 documented as of this encounter Additional Source Comments The information contained in this document represents components of the legal health record. It is not the complete legal health record.[facility]
--- OUTSIDE RECORDS SUMMARY | 2025-05-16 13:08 | XMS_ITS | Encounter Summary ---
Author Organization [facility] Address [facility] [address] [place] [address] Phone Care Team Providers Care Coach Mechanic Name Role Phone Marnie Resendez DO Primary Care Provider [phone] Sedrick Shea MD Primary Care Provider Belen Edwards WATCH INSPECTOR FINAL MOVEMENT Primary Care Provider Rukhsana Melgar WATCH INSPECTOR FINAL MOVEMENT Primary Care Provider [phone]- [phone] Encounter Details Date Type Department Care Team (Late st Contact Info) Description 10/02/2020 Procedure Pass [facility] [address] [place] [address] Social History Tobacco Use Types Packs/Day Years [...] documented as of this encounter Care Teams Coach Mechanic Relationship Specialty Start Date End Date Marnie Resendez DO [address] [place] [address] ([address]) [place] [address] PCP - General 04/08/20 02/05/21 Sedrick Shea MD [address] [place] [address] [email or web address] PCP - General Internal Medicine 02/06/21 02/12/23 Belen Edwards NP [address] [place] [phone] [email or web address] PCP - General Nurse Practitioner 02/13/23 10/19/24 Rukhsana Melgar NP [address] [place] [address] PCP - General Nurse Practitioner 10/20/24 documented as of this encounter Additional Source Comments The information contained in this document represents components of the legal health record. It is not the complete legal health record.[facility]
--- OUTSIDE RECORDS SUMMARY | 2025-05-16 13:08 | XMS_ITS | Encounter Summary ---
Author Organization [facility] Address Count includes the [facility] [address] [place] [address] Phone Care Team Providers Care Jazz Musician Name Role Phone Marnie Resendez DO Primary Care Provider [phone] Sedrick Shea MD Primary Care Provider [phone] eBlen Edwards VP CORPORATE DEVELOPMENT Primary Care Provider Rukhsana Melgar VP CORPORATE DEVELOPMENT Primary Care Provider [phone]- [phone] Encounter Details Date Type Department Care Team (Late st Contact Info) Description 09/11/2020 Procedure Pass [facility] [address] [place] [address] Social History Tobacco Use Types Packs/Day Years [...] documented as of this encounter Care Teams Jazz Musician Relationship Specialty Start Date End Date Marnie Resendez DO [address] [place] [address] ([address]) [place] [address] PCP - General 04/08/20 02/05/21 Sedrick Shea MD [address] [place] [address] [email or web address] PCP - General Internal Medicine 02/06/21 02/12/23 Belen Edwards NP [address] [place] [phone] [email or web address] PCP - General Nurse Practitioner 02/13/23 10/19/24 Rukhsana Melgar NP [address] [place] [address] PCP - General Nurse Practitioner 10/20/24 documented as of this encounter Additional Source Comments The information contained in this document represents components of the legal health record. It is not the complete legal health record.[facility]
--- OUTSIDE RECORDS SUMMARY | 2025-05-16 13:08 | XMS_ITS | Encounter Summary ---
Author Organization [facility] Address [facility] [address] [place] [address] Phone Care Team Providers Care Gravel Machine Operator Name Role Phone ResendezMarnie dodson Yazmin [place] Primary Care Provider [phone] Sedrick Shea MD Primary Care Provider Belen Edwards CLIENT ACCOUNT REPRESENTATIVE Primary Care Provider Rukshana Melgar CLIENT ACCOUNT REPRESENTATIVE Primary Care Provider [phone] Encounter Details Date Type Department Care Team (Latest Contact Info) Description 10/02/2020 Ancillary Orders [facility] [address] [place] [address] Aditi Lucas PA-C [address] [facility] [place] [facility] [address] [place] [address] [email or web address] Allergic reaction to contrast material, subsequent encounter; [...] documented as of this encounter Care Teams Gravel Machine Operator Relationship Specialty Start Date End Date Resendez Marnie ArceDO [address] [place] [address] ([address]) [place] [address] PCP - General 04/08/20 02/05/21 Sedrick Shea MD [address] [place] [address] [email or web address] PCP - General Internal Medicine 02/06/21 02/12/23 Belen Edwards NP [address] [place] [phone] [email or web address] PCP - General Nurse Practitioner 02/13/23 10/19/24 Rukhsana Melgar NP [address] [place] [address] PCP - General Nurse Practitioner 10/20/24 documented as of this encounter Additional Source Comments The information contained in this document represents components of the legal health record. It is not the complete legal health record.[facility]
--- OUTSIDE RECORDS SUMMARY | 2025-05-16 13:08 | XMS_ITS | Encounter Summary ---
Author Organization [facility] Address [address] [place] [address] Phone Care Team Providers Care Wood Fuel Pelletizer Name Role Phone Sedrick Shea MD Primary Care Provider Belen Edwards IN HOME NANNY Primary Care Provider Rukhsana Melgar IN HOME NANNY Primary Care Provider [phone] Encounter Details Date Type Department Care Team (Late st Contact Info) Description 06/19/2022 Procedure Pass [facility] Cardio EP Device Monitoring [address] [place] [address] Social History Tobacco Use Types Packs/Day Years [...] as of this encounter Care Teams Wood Fuel Pelletizer Relationship Specialty Start Date End Date Sedrick Shea MD [address] [place] [address] [email or web address] PCP - General Internal Medicine 02/06/21 02/12/23 Belen Edwards NP [address] [place] [phone] PCP - General Nurse Practitioner 02/13/23 10/19/24 Rukhsana Melgar NP [address] [place] [address] PCP - General Nurse Practitioner 10/20/24 documented as of this encounter Additional Source Comments The information contained in this document represents components of the legal health record. It is not the complete legal health record.[facility]
--- OUTSIDE RECORDS SUMMARY | 2025-05-16 13:08 | XMS_ITS | Encounter Summary ---
Author Organization [facility] Address [facility] [employer] [facility] [address] [place] [address] Phone Care Team Providers Care Support Services Manager Name Role Phone DiptiMarnie Yazmin [place] Primary Care Provider [phone] Sedrick Shea MD Primary Care Provider [phone] Belen Edwards VIAL GAUGER Primary Care Provider Rukhsana Melgar VIAL GAUGER Primary Care Provider +1- [phone] Encounter Details Date Type Department Care Team (Latest Contact Info) Description 01/08/2021 Transcribe Orders Virtual Department [address] [place] [address] Sedrick Shea MD [address] [place] [address] [phone] [email or web address] Osteoporosis, unspecified osteoporosis type, unspecified pathological fracture [...] bone mineral density was calculated at 0.523 gm/ev1sdsx a T- score of -2.9 falling within [...] documented as of this encounter Care Teams Support Services Manager Relationship Specialty Start Date End Date Marnie Resendez DO [address] [place] [address] ([address]) [place] [address] PCP - General 04/08/20 02/05/21 Sedrick Shea MD [address] [place] [address] [email or web address] PCP - General Internal Medicine 02/06/21 02/12/23 Belen Edwards NP [address] [place] [phone] [email or web address] PCP - General Nurse Practitioner 02/13/23 10/19/24 Rukhsana Melgar NP [address] [place] [address] PCP - General Nurse Practitioner 10/20/24 documented as of this encounter Additional Source Comments The information contained in this document represents components of the legal health record. It is not the complete legal health record.[facility]
--- OUTSIDE RECORDS SUMMARY | 2025-05-16 13:08 | XMS_ITS | Encounter Summary ---
Author Organization [facility] Address [address] [place] [address] Phone Care Team Providers Care Tool And Die Machinist Name Role Phone Sedrick Shea MD Primary Care Provider Belen Edwards MUSIC WORKER Primary Care Provider Rukhsana Melgar MUSIC WORKER Primary Care Provider [phone] Encounter Details Date Type Department Care Team (Late st Contact Info) Description 07/06/2022 Procedure Pass [facility] Cardio EP Device Monitoring [address] [place] [address] Social History Tobacco Use Types Packs/Day Years [...] documented as of this encounter Care Teams Tool And Die Machinist Relationship Specialty Start Date End Date Sedrick Shea MD [address] [place] [address] [email or web address] PCP - General Internal Medicine 02/06/21 02/12/23 Belen Edwards NP [address] [place] [phone] [email or web address] PCP - General Nurse Practitioner 02/13/23 10/19/24 Rukhsana Melgar NP [address] [place] [address] PCP - General Nurse Practitioner 10/20/24 documented as of this encounter Additional Source Comments The information contained in this document represents components of the legal health record. It is not the complete legal health record.[facility]
--- OUTSIDE RECORDS SUMMARY | 2025-05-16 13:08 | XMS_ITS | Encounter Summary ---
Author Organization [facility] Address [address] [place] [address] Phone Care Team Providers Care Pipeline Superintendent Name Role Phone Sedrick Shea MD Primary Care Provider Belen Edwards OFFICE MACHINES SALES REPRESENTATIVE Primary Care Provider Rukhsana Melgar OFFICE MACHINES SALES REPRESENTATIVE Primary Care Provider [phone] Encounter Details Date Type Department Care Team (Late st Contact Info) Description 02/07/2022 Procedure Pass [facility] Cardio EP Device Monitoring [address] [place] [address] Social History Tobacco Use Types Packs/Day Years [...] documented as of this encounter Care Teams Pipeline Superintendent Relationship Specialty Start Date End Date Sedrick Shea MD [address] [place] [address] [email or web address] PCP - General Internal Medicine 02/06/21 02/12/23 Belen Edwards NP [address] [place] [phone] [email or web address] PCP - General Nurse Practitioner 02/13/23 10/19/24 Rukhsana Melgar NP [address] [place] [address] PCP - General Nurse Practitioner 10/20/24 documented as of this encounter Additional Source Comments The information contained in this document represents components of the legal health record. It is not the complete legal health record.[facility]
--- OUTSIDE RECORDS SUMMARY | 2025-05-16 13:08 | XMS_ITS | Encounter Summary ---
Author Organization [facility] Address [address] [place] [address] Phone Care Team Providers Care Claim Auditor Name Role Phone Sedrick Shea MD Primary Care Provider [phone] Belen Edwards PROPERTY MANAGER Primary Care Provider Rukhsana Melgar PROPERTY MANAGER Primary Care Provider [phone]- [phone] Encounter Details Date Type Department Care Team (Late st Contact Info) Description 08/22/2022 Procedure Pass [facility] Cardio EP Device Monitoring [address] [place] [address] Social History Tobacco Use Types Packs/Day Years [...] documented as of this encounter Care Teams Claim Auditor Relationship Specialty Start Date End Date Sedrick Shea MD [address] [place] [phone] PCP - General Internal Medicine 02/06/21 02/12/23 Belen Edwards NP [address] [place] [phone] [email or web address] PCP - General Nurse Practitioner 02/13/23 10/19/24 Rukhsana Melgar NP [address] [place] [address] PCP - General Nurse Practitioner 10/20/24 documented as of this encounter Additional Source Comments The information contained in this document represents components of the legal health record. It is not the complete legal health record.[facility]
--- OUTSIDE RECORDS SUMMARY | 2025-05-16 13:08 | XMS_ITS | Encounter Summary ---
Author Organization [facility] Address [email or web address] [place] [address] Phone Care Team Providers Care Oceanographer Assistant Name Role Phone Sedrick Shea MD Primary Care Provider [phone] Belen Edwards LINE DRIVER Primary Care Provider Rukhsana Melgar LINE DRIVER Primary Care Provider [phone] Encounter Details Date Type Department Care Team (Late st Contact Info) Description 06/19/2022 Procedure Pass [facility] Cardio EP Device Monitoring [address] [place] [address] Social History Tobacco Use Types Packs/Day Years [...] documented as of this encounter Care Teams Oceanographer Assistant Relationship Specialty Start Date End Date Sedrick Shea MD [address] [place] [address] [email or web address] PCP - General Internal Medicine 02/06/21 02/12/23 Belen Edwards NP [address] [place] [phone] [email or web address] PCP - General Nurse Practitioner 02/13/23 10/19/24 Rukhsana Melgar NP [address] [place] [address] PCP - General Nurse Practitioner 10/20/24 documented as of this encounter Additional Source Comments The information contained in this document represents components of the legal health record. It is not the complete legal health record.[facility]
--- OUTSIDE RECORDS SUMMARY | 2025-05-16 13:08 | XMS_ITS | Encounter Summary ---
Author Organization [facility] Address [facility] [address] [place] [address] Phone Care Team Providers Care Curator Natural History Museum Name Role Phone Marnie Resendez DO Primary Care Provider [phone] Sedrick Shea MD Primary Care Provider [phone] Belen Edwards MANAGER ENVIRONMENTAL Primary Care Provider Rukhsana Melgar MANAGER ENVIRONMENTAL Primary Care Provider [phone] Encounter Details Date Type Department Care Team (Late st Contact Info) Description 10/03/2020 Procedure Pass [facility] [address] [place] [phone] Social History Tobacco Use Types Packs/Day Years [...] documented as of this encounter Care Teams Curator Natural History Museum Relationship Specialty Start Date End Date Marnie Resendez DO [address] [place] [address] ([phone]) [place] [address] PCP - General 04/08/20 02/05/21 Sedrick Shea MD [address] [place] [address] [email or web address] PCP - General Internal Medicine 02/06/21 02/12/23 Belen Edwards NP [address] [place] [phone] [email or web address] PCP - General Nurse Practitioner 02/13/23 10/19/24 Rukhsana Melgar NP [address] [place] [address] PCP - General Nurse Practitioner 10/20/24 documented as of this encounter Additional Source Comments The information contained in this document represents components of the legal health record. It is not the complete legal health record.[facility]
--- OUTSIDE RECORDS SUMMARY | 2025-05-16 13:08 | XMS_ITS | Encounter Summary ---
Author Organization [facility] Address [facility] [address] [place] [address] Phone Care Team Providers Care Revenue Officer Name Role Phone Sedrick Shea MD Primary Care Provider Belen Edwards OIL FIELD TESTER Primary Care Provider Rukhsana Melgar OIL FIELD TESTER Primary Care Provider [phone] Encounter Details Date Type Department Care Team (Latest Contact Info) Description 06/19/2022 Transcribe Orders [facility] at [facility] [address] [place] [address] Fiorella Vallecillo [address] [place] [address] [email or web address] Implantable loop recorder present (Primary Dx) [...] documented as of this encounter Care Teams Revenue Officer Relationship Specialty Start Date End Date Sedrick Shea MD [address] [place] [address] [email or web address] PCP - General Internal Medicine 02/06/21 02/12/23 Belen Edwards NP [address] [place] [phone] PCP - General Nurse Practitioner 02/13/23 10/19/24 Rukhsana Melgar NP [address] [place] [address] PCP - General Nurse Practitioner 10/20/24 documented as of this encounter Additional Source Comments The information contained in this document represents components of the legal health record. It is not the complete legal health record.[facility]
--- OUTSIDE RECORDS SUMMARY | 2025-05-16 13:08 | XMS_ITS | Encounter Summary ---
Author Organization [facility] Address [facility] [address] [place] [address] Phone Care Team Providers Care Backend Developer Name Role Phone Dipti Marnie Arce DO Primary Care Provider [phone] Sedrick Shea MD Primary Care Provider [phone] Belen Edwards SUPERVISOR SPINNING Primary Care Provider Rukhsana Melgar SUPERVISOR SPINNING Primary Care Provider [phone]- [phone] Encounter Details Date Type Department Care Team (Late st Contact Info) Description 09/14/2020 Transcribe Orders [facility] at the [facility] [address] [place] [address] [email or web address] Social History Tobacco Use Types Packs/Day [...] documented as of this encounter Care Teams Backend Developer Relationship Specialty Start Date End Date Marnie Resendez DO [address] [place] [place] [address] ([phone]) [place] [address] PCP - General 04/08/20 02/05/21 Sedrick Shea MD [address] [place] [address] [email or web address] PCP - General Internal Medicine 02/06/21 02/12/23 Belen Edwards NP [address] [place] [phone] [email or web address] PCP - General Nurse Practitioner 02/13/23 10/19/24 Rukhsana Melgar NP [address] [place] [phone] PCP - General Nurse Practitioner 10/20/24 documented as of this encounter Additional Source Comments The information contained in this document represents components of the legal health record. It is not the complete legal health record.[facility]
--- OUTSIDE RECORDS SUMMARY | 2025-05-16 13:08 | XMS_ITS | Encounter Summary ---
Author Organization [facility] Address [facility] [address] [place] [address] Phone Care Team Providers Care Asic Verification Engineer Name Role Phone Dipti Marnie Arce DO Primary Care Provider [phone] Sedrick Shea MD Primary Care Provider [phone] Belen Edwards IRONER SOCK Primary Care Provider Rukhsana Melgar IRONER SOCK Primary Care Provider [phone] Encounter Details Date Type Department Care Team (Late st Contact Info) Description 09/12/2020 Transcribe Orders [facility] at the [facility] [address] [place] [address] [email or web address] Social History Tobacco Use Types Packs/Day Years [...] documented as of this encounter Care Teams Asic Verification Engineer Relationship Specialty Start Date End Date Marnie Resendez DO [address] [place] [address] ([phone]) [place] [address] PCP - General 04/08/20 02/05/21 Sedrick Shea MD [address] [place] [address] [email or web address] PCP - General Internal Medicine 02/06/21 02/12/23 Belen Edwards NP [address] [place] [phone] [email or web address] PCP - General Nurse Practitioner 02/13/23 10/19/24 Rukhsana Melgar NP [address] [place] [address] PCP - General Nurse Practitioner 10/20/24 documented as of this encounter Additional Source Comments The information contained in this document represents components of the legal health record. It is not the complete legal health record.[facility]
--- OUTSIDE RECORDS SUMMARY | 2025-05-16 13:08 | XMS_ITS | Encounter Summary ---
Author Organization [facility] Address [address] [place] [address] [place] [address] Phone Care Team Providers Care Insulation Power Unit Tender Name Role Phone Dipti Marnie Acre DO Primary Care Provider [phone] Sedrick Shea MD Primary Care Provider [phone] Belen Edwards REGISTERED NURSES Primary Care Provider Rukhsana Melgar REGISTERED NURSES Primary Care Provider [phone] Reason for Referral * MRI/CAT Scan - Closed Specialty Diagnoses / Procedures Referred By Scott nguyen Referred To Contact Radiology Diagnoses Allergic reaction to contrast material, subsequent encounter Paroxysmal atrial fibrillation Procedures CT 3D Reconstruction CT Angio Chest Jamie Fernandez MD Phone: tel: fax: mailto:[email or web address] Referral ID Status Reason Start Date Expiration Date Visits Re quested Visits Authorized Closed 10/02/2020 10/02/2021 1 1 Encounter Details Date Type Department Care Team (Latest Contact Info) Description 10/02/2020 Ancillary Orders [facility] Radiology [facility] [place] [address] Jamie Fernandez MD [address] [place] [phone] [email or web address] Allergic reaction to contrast material, [...] changes of the spine. Procedure Note Bhaskar Tavares, DYAN - 10/02/2020 Reason for exam (per EHR [...] is no left atrial appendage thrombus. ATTESTATION: I, Bhaskar Tavares, as teaching physician have reviewed theimages, if any, for this patient's exam, and if necessary, have edited thereport originally created by Peggy Zambrano. us Jamie Fernandez MD IMG CT Final Resu [...] documented as of this encounter Care Teams Insulation Power Unit Tender Relationship Specialty Start Date End Date Marnie Resendez DO [address] [place] [address] ([phone]) [place] [address] PCP - General 04/08/20 02/05/21 Sedrick Shea MD [address] [place] [address] [email or web address] PCP - General Internal Medicine 02/06/21 02/12/23 Belen Edwards NP [address] [place] [phone] [email or web address] PCP - General Nurse Practitioner 02/13/23 10/19/24 Rukhsana Melgar NP [address] [place] [address] PCP - General Nurse Practitioner 10/20/24 documented as of this encounter Additional Source Comments The information contained in this document represents components of the legal health record. It is not the complete legal health record.[facility]
--- OUTSIDE RECORDS SUMMARY | 2025-05-16 13:09 | XMS_ITS | Encounter Summary ---
Author Organization [facility] Address [address] [place] [address] Phone Care Team Providers Care Metal Precision Machine Assembler Name Role Phone Rukhsana Melgar NP Primary Care Provider [phone] Encounter Details Date Type Department Care Team ([facility] st Contact Info) Description 11/15/2024 Transcribe Orders Virtual Department [address] [place] [address] Peyman Fuentes [place] [email or web address] Abnormal findings on diagnostic imaging of other [...] for Exam: Abnormal Chest X-ray; Performing Location: [facility] PFT Routine Abnormal findings on diagnostic imaging of other specified body structures Expected: 11/15/2024, Expires: 11/15/2025 documented as of this encounter Visit Diagnoses Diagnosis Abnormal findings on diagnostic imaging of other specified body structures- Primary documented in this encounter Additional Health Concerns Assessment Noted Time PHQ-2 Depression Total Score: 2 08/25/19 21 8:59 AM EDT documented as of this encounter Care Teams Metal Precision Machine Assembler Relationship Specialty Start Date End Date Rukhsana Melgar NP [address] [place] [address] PCP - General Nurse Practitioner 10/20/24 documented as of this encounter Additional Source Comments The information contained in this document represents components of the legal health record. It is not the complete legal health record.[facility]
--- OUTSIDE RECORDS SUMMARY | 2025-05-16 13:09 | XMS_ITS | Encounter Summary ---
Author Organization [facility] Address [facility] [address] [place] [address] Phone Care Team Providers Care Quick Sketch Artist Name Role Phone Belen Edwards LICENSED PRACTICAL NURSE Primary Care Provider Rukhsana Melgar LICENSED PRACTICAL NURSE Primary Care Provider [phone] Encounter Details Date Type Department Care Team (Late st Contact Info) Description 10/18/2024 Procedure Pass [facility] Scan - [facility] [address] [place] [address] Social History Tobacco Use Types Packs/Day Years [...] documented as of this encounter Care Teams Quick Sketch Artist Relationship Specialty Start Date End Date Belen Edwards NP [address] [place] [phone] [email or web address] PCP - General Nurse Practitioner 02/13/23 10/19/24 Rukhsana Melgar NP [address] [place] [address] PCP - General Nurse Practitioner 10/20/24 documented as of this encounter Additional Source Comments The information contained in this document represents components of the legal health record. It is not the complete legal health record.[facility]
--- OUTSIDE RECORDS SUMMARY | 2025-05-16 13:09 | XMS_ITS | Encounter Summary ---
Author Organization [facility] Address [address] [place] [address] [place] [address] Phone Care Team Providers Care Ten [employer]ling [employer] Manager Name Role Phone Belen Edwards CLINICAL ASSESSMENT MANAGER Primary Care Provider Rukhsana Melgar CLINICAL ASSESSMENT MANAGER Primary Care Provider [phone] Reason for Referral * MRI/CAT Scan - Closed Specialty Diagnoses / Procedures Referred By Scott t Referred To Contact Radiology Diagnoses Abnormal weight loss Procedures CT Abdomen Only (No Pelvis) Rukhsana Melgar NP [address] [place] [address] Phone: tel: fax: Referral ID Status Reason Start Date Expiration Date Visits Re quested Visits Authorized [id number] Closed 10/18/2024 10/18/2025 1 1 Encounter Details Date Type Department Care Team (Late st Contact Info) Description 10/18/2024 Transcribe Orders Virtual Department [address] [place] [address] Rukhsana Melgar NP [address] [place], [place] [phone] Abnormal weight loss (Primary Dx) Social History [...] clinician's provided indication for this examination in [facility]:Outside Radiology Order; weight loss TECHNIQUE: Multidetector-row CT [...] Healing fractures of the anterolateral left 9th arn05ko ribs. Grade 2 anterolisthesis of L5 on [...] documented as of this encounter Care Teams [employer] Manager Relationship Specialty Start Date End Date Belen Edwards NP [address] [place] [phone] [email or web address] PCP - General Nurse Practitioner 02/13/23 10/19/24 Rukhsana Melgar NP [address] [place] [address] PCP - General Nurse Practitioner 10/20/24 documented as of this encounter Additional Source Comments The information contained in this document represents components of the legal health record. It is not the complete legal health record.[facility]
== END 2025-05-16 11:11 ==
LOC: HO.MAMMO 11:10
PROVIDERS: Visit Provider Nurse Practitioner Family
DX: Z12.31 Encounter for screening mammogram for malignant neoplasm of breast (principal)
CPT/HCPCS: 77063; 77067